=== PATIENT | male | born 1955 | race Caucasian/White ===

== ENCOUNTER 2021-01-17 15:33 | Inpatient (IN) | payer BC, SELFPAY ==
[2021-01-17] VITALS (7 sets, daily range): BP systolic 130–184; BP diastolic 88–122; PULSE 95–123; RESP 15–19; TEMP 36–36.9; O2SAT 95–100; BMI 26.8
--- NOTE | ~2021-01-17 | CT_ITS ---
EXAMINATION: CTA CHEST CT ABDOMEN AND PELVIS WITH CONTRAST CLINICAL INFORMATION: Dyspnea. Tachycardia. Elevated d-dimer. Abdominal ascites. COMPARISON: Chest x-ray 01/17/2021. CT abdomen pelvis 07/08/2011 TECHNIQUE: A noncontrast localizer was performed, followed by the administration of 63 mL Omnipaque [address] of the chest was then performed. Coronal and sagittal reformatted and 3-D technique MIP images of the chest were completed at the CT scanner and reviewed on the PACS workstation. No adverse effects were reported. Images were then performed through the abdomen and pelvis. Coronal and sagittal reformatted images performed at CT scanner by technologist. [This CT examination was performed using dose optimization techniques as appropriate, variously including the following: *Automated exposure control *Adjustment of mA and/or kV according to patient size (this includes techniques or standardized protocols for targeted exams where dose is matched to indication/reason for exam; i.e. extremities or head) *Use of iterative reconstruction technique] DLP: 459 mGy-cm. FINDINGS: CTA CHEST Vascular: The main pulmonary artery, secondary and tertiary branches of the pulmonary artery are normally opacified with no evidence of pulmonary embolism. The aorta and great vessels are unremarkable. There are calcifications of the wall of aorta. The heart size is normal. There is no pericardial effusion. Large volume of coronary artery calcifications. Mediastinum: No mediastinal mass. No significant lymphadenopathy. Lungs: The lungs are clear. No nodule or infiltrate. Central bronchial airways open. Fluid: Small bilateral pleural effusions layering dependently. Axilla: No significant lymphadenopathy. CT SCAN ABDOMEN/PELVIS: Liver, Gallbladder and Biliary Tree: The liver is normal in size, shape, and attenuation. No focal hepatic lesion or biliary ductal dilatation is present. The gallbladder is unremarkable with no evidence of radiopaque gallstones, gallbladder wall thickening, or obvious pericholecystic inflammatory changes. Pancreas: Unremarkable. Spleen: Unremarkable. Adrenal Glands: Unremarkable. Kidneys and Ureters: The kidneys are normal in size, shape, and attenuation. No hydronephrosis, hydroureter, or calculi seen. No perinephric stranding. Bladder: Unremarkable. Gastrointestinal Tract: The small and large bowel are unremarkable. The appendix is surgically absent. Mesentery: Small to moderate volume of abdominal ascites. No mesenteric mass or inflammation. No free air. Abdominal Wall: No significant hernia is appreciated. Lymph Nodes: Normal. Vascular: Atherosclerotic vascular calcifications of aorta and iliac arteries. No aneurysm. Pelvic Viscera: Partially imaged scrotal sac demonstrating large hydroceles. Prostate measures 3.5 cm transverse. Osseous Structures: Moderate degenerative spondylosis of the spine. CT/CT angio chest PE protocol IMPRESSION: 1. CT CHEST: No evidence of pulmonary embolism. Small bilateral pleural effusions. 2. CT SCAN ABDOMEN PELVIS: Small moderate volume of abdominal ascites.
--- NOTE | ~2021-01-17 | XR_ITS ---
EXAMINATION: XR CHEST CLINICAL INFORMATION: Dyspnea. COMPARISON: 07/10/2011 chest radiographs. TECHNIQUE: Frontal view of the chest was obtained. FINDINGS: The lungs are clear. The heart and mediastinal structures are unremarkable. XR/XR chest 1V IMPRESSION: No acute cardiopulmonary process.
--- NOTE | 2021-01-17 15:41 | ECG_ITS ---
Test Reason : ARRHYTHMIA Blood Pressure : / mmHG Vent. Rate : 130 BPM Atrial Rate : 130 BPM P-R Int : 156 ms QRS Dur : 102 ms QT Int : 276 ms P-R-T Axes : 067 003 082 degrees QTc Int : 406 ms Sinus tachycardia Possible Left atrial enlargement Septal infarct , age undetermined Abnormal ECG When compared with ECG of 08-JUL-2011 18:53, Septal infarct is now Present Non-specific change in ST segment in Inferior leads ST now depressed in Lateral leads Nonspecific T wave abnormality, worse in Inferior leads T wave inversion now evident in Lateral leads Referred By: Kathie Tiwari Electronically Signed By:Luiz Ruiz
[2021-01-17] MEDS: Aspirin 81 MG TAB.CHEW 324 MG PO (15:45)
--- NOTE | 2021-01-17 15:45 | ED_ITS ---
HPI - SOB/Dyspnea General Chief Complaint: Arrhythmia/Palpitations Stated Complaint: Abdnormal EKG/SOB/Chest tightness Time Seen by Provider: 01/17/21 15:41 Source: patient Mode of arrival: ambulatory (sent by PCP for abnormal EKG) Limitations: no limitations History of Present Illness MD elicited complaint: shortness of breath and chest pain Pertinent past history: other (HTN) Onset (ago): week(s) (2 weeks ago had chest pain that has resolved occurred while working, since then dyspnea and orthopnea) Context: occurred during exertion Timing: improved Severity: moderate Exacerbating factors: lying flat and exertion Relieving factors: rest Associated symptoms: chest pain (resolved occurred 2 weeks ago) Treatment prior to arrival: none Related Data Allergies Allergy/AdvReac Type Severity Reaction Status Date / Time No Known Allergies Allergy Verified 01/17/21 15:42 Review of Systems Review of Systems: Constitutional : No Fever, No Chills ENT/Mouth : No sore throat, No Rhinorrhea, No Swallowing Difficulty Eyes: No Eye Pain, No Swelling, No Redness Cardiovascular : No Chest Pain, positive SOB, pos Orthopnea, positive Edema Respiratory : No Cough, No Sputum, No Wheezing, positive dyspnea Gastrointestinal : No Nausea, No Vomiting, No Diarrhea, No abdominal Pain, No Hematochezia, No Melena Genitourinary : No Dysuria, No Urinary Frequency, No Hematuria Musculoskeletal : No joint pain, No Myalgias Skin : No Skin Lesions, No rash Neuro : No Weakness, No Numbness, No Dizziness, No Headache Psych : No Anxiety/Panic, No Depression Heme/Lymph: No Bruising, No Lymphadenopathy Endocrine : No Polyuria, No Polydipsia All other systems reviewed and are negative [facility] Past Medical History Attestation statement: The following information was validated with the patient. Medical History HTN (hypertension) Social History Social History (Updated 01/17/21 @ 15:49 by Kathie Tiwari DO) Patient Tobacco Use Status: Current everyday Tobacco user Use of substances other than those prescribed or required for medical reasons: No Physical Exam Vital Signs: Vital Signs: Last Vital Signs Temp 96.8 F 01/17/21 15:42 Pulse 121 H 01/17/21 15:42 Resp 19 01/17/21 15:42 BP 184/122 H 01/17/21 15:42 Pulse Ox 99 01/17/21 15:42 Body Mass Index 26.8 Appearance: Alert. Oriented X3. No acute distress. Anxious Eyes: Pupils equal, round and reactive to light. ENT: Pharynx normal. Neck: Normal inspection. Neck supple. CVS: tachycardic heart rate and rhythm. Pulses normal. Respiratory: No respiratory distress. Breath sounds bases decreased Abdomen: Soft and nontender. Skin: Skin warm and dry. Normal skin color. Normal skin turgor. Extremities: 1+ pitting lower extremity edema. No calf ttp Neuro: Oriented X 3. No motor deficit. No sensory deficit. Course Course Course Narrative: signed out to Dr. Hoff pending further workup MDM - SOB/Dyspnea MDM Narrative Medical decision making narrative: 65 yo male with recent episodes of SOLARES and 2 weeks ago had chest pain with labor at work, he has noted increased SOLARES and also new orthopnea, he has not had a prior cardiac workup in the past, he has been taking cough and cold medications to see if this improves his symptoms, sent by his PCP for EKG changes, suspect he had a cardiac event a couple of weeks ago and likely has some mild CHF - labs, troponin, nitro for BP, ASA, he has no CP at this time, ddimer given tachcyardia as well to r/o PE, dispo per results and findings. ECG Data Attestation: I personally reviewed and interpreted this ECG as follows: ECG interpretation date: 01/17/21 ECG interpretation time: 15:46 Interpretation: Rate: 130 Rhythm: sinus tachycardia Runge: left , LVH Normal P waves. Normal NATI. Normal QRS complex. ST T wave : no BILLY, ST depression in inf leads as well as V5-V6 qTC: normal prior studies: changed from prior The study has been interpreted contemporaneously by me. . Discharge Plan Discharge Clinical Impression: Acute dyspnea, Abnormal ECG
[2021-01-17] MEDS: Nitroglycerin 2 % Oint 1 GM Packet 1 INCH TRANSDERMA (15:49)
[2021-01-17 16:03] LABS: MANUAL DIFF FLAG NO
[2021-01-17 16:12] LABS: Basophils Absolute Auto 0.1 X10*3/uL (0.0-0.2); Basophils Percent Auto 0.6 % (0-2); Eosinophils Absolute Auto 0.1 X10*3/uL (0.0-0.4); Eosinophils Percent Auto 1.4 % (0-4); Hematocrit 48.8 % (42-52); Hemoglobin 16.3 g/dl (14.0-18.0); Imm Gran Abs Auto 0.02 X10*3/uL (0.00-0.03); Imm Gran Pct Auto 0.3 % (0.0-0.4); Lymphocytes Absolute Auto 1.7 X10*3/uL (1.2-4.9); Lymphocytes Percent Auto 21.4 % (20-40); Mean Corpuscular HGB Conc 33.4 g/dl (31.0-36.0); Mean Corpuscular Hemoglobin 31.4 pg (27.0-33.0); Mean Platelet Volume 9.3 fL (9.4-12.4); Monocytes Absolute Auto 0.7 X10*3/uL (0.1-1.2); Monocytes Percent Auto 9.2 % (2-11); Neutrophils Absolute Auto 5.3 X10*3/uL (2.0-8.3); Neutrophils Percent Auto 67.1 % (45-73); Platelet Count 322 X10*3/uL (160-400); Red Blood Count 5.19 X10*6/uL (4.60-5.80); Red Cell Distribution Width 13.6 % (11.0-16.0); White Blood Count 7.9 X10*3/uL (4.8-10.8)
[2021-01-17 16:15] LABS: INTERNATIONAL NORM RATIO 1.2 (0.9-1.1); Prothrombin Time 13.9 SEC (10.8-13.0)
[2021-01-17 16:18] LABS: D Dimer 531 NG/ML; Partial Thromboplastin Time 32.5 SEC (24.1-38.0)
[2021-01-17 16:32] LABS: COVID-19 Test Negative (Negative); IDNOW Serial# 08D9AD1C
[2021-01-17 16:38] LABS: Alanine Aminotransferase 68 U/L (0-40); Albumin Level 4.3 g/dL (3.5-5.0); Alkaline Phosphatase 118 U/L (39-117); Anion Gap 15 (12-20); Aspartate Amino Transferase 48 U/L (5-37); Bilirubin Direct 0.4 mg/dL (0.0-0.5); Bilirubin Total 0.9 mg/dL (0.0-1.0); Blood Urea Nitrogen 23 mg/dL (9-16); Calcium 9.5 mg/dL (8.4-10.2); Carbon Dioxide 21 mmol/L (22-29); Chloride 108 mmol/L (96-108); Creatinine Clr Calc Pharmacy 60.6; Estimated Glomerular Filt Rate > 60; Glucose Random 117 mg/dL (60-115); Lipase 17 U/L (8-78); Magnesium 2.1 mg/dL (1.6-2.6); Potassium 4.3 mmol/L (3.3-5.1); Sodium 140 mmol/L (135-145); Total Protein 6.6 g/dL (6.5-8.0)
[2021-01-17 16:39] LABS: B Type Natriuretic Peptide 1996 pg/mL (<100)
--- NOTE | 2021-01-17 16:47 | PHA.MEDREC ---
Pharmacy Consult ? Medication Reconciliation Pharmacy has completed the medication reconciliation. No remarkable issues to report. Patient reports having no prescription medication. Takes aspirin every once in a while and recently has been taking NyQuil to sleep because of congestion. Buffy Bernard, PharmD
[2021-01-17] MEDS: iohexoL 350 MG/ML 100 ML INFUS..BTL IV (17:04)
[2021-01-17] MEDS: Heparin Sodium,Porcine 5,000 UNIT/ML VIAL 4000 UNIT IVPUSH (17:10)
[2021-01-17] MEDS: Furosemide 40 MG/4 ML VIAL IVPUSH (17:55)
[2021-01-17] MEDS: Labetalol HCL 100 MG/20 ML VIAL 10 MG IVPUSH (17:56)
[2021-01-17 18:46] LABS: Troponin-I High Sensitivity 35.4 ng/L (<3.5-35.0)
--- NOTE | 2021-01-17 20:42 | P.HPHOSP_ITS ---
History of Present Illness Date of Service: 01/17/21 Chief Complaint: SOB 65-year-old female with a past medical history of hypertension-noncompliant with medications, tobacco dependence, presented to the hospital with a chief complaint of chest pain/shortness of breath/dyspnea on exertion; reportedly symptoms have been going on for the past 2 weeks. Which have been gradually worsening. Also complains of palpitations. Denies any lightheadedness. Denies any nausea vomiting or diaphoresis associated with the chest discomfort. Denies any fever chills cough. Denies any GI or symptoms. Review of all other systems is negative except mentioned above ER course: Per ER team patient noted to have ST changes on EKG showed ST depression in inferior leads and V5 V6 consistent with strain pattern, LVH; troponins x2 indeterminate; proBNP elevated; patient noted to be tachycardic, CT angio negative for any pulmonary embolism; discussed with Dr. Ruiz from Cardiology- who mentioned no heparin drip, Lasix for possible CHF; patient also received aspirin. Also noted mild transaminitis small moderate volume of ascites. [facility] Medical History HTN (hypertension) Social History (Updated 01/17/21 @ 15:49 by Kathie Tiwari DO) Household Members: Family Housing: House Alcohol intake: current Alcohol intake frequency: 0-2 drinks per day Patient Tobacco Use Status: Never used Tobacco Smoked in Last 30 Days: Yes Use of substances other than those prescribed or required for medical reasons: No Currently Displaying Signs/Symptoms of Drug Intoxication Withdrawal: No Have you been hit, kicked, punched, or otherwise hurt by someone within the past year? If so, by whom?: No Do you feel safe in your current relationship?: Yes Is there a partner from a previous relationship who is making you feel unsafe now?: No Are you made to feel afraid or neglected: No Advance Directives: Yes Advance Directives Information Provided: Yes Advance Directives on File: No Advance Directives Date on File: 01/17/21 Do you have thoughts of harming others: None Do you have a plan to hurt others: No Plan Recently lost weight without trying: Yes How much weight loss: 2-13 pounds Eating poorly because of decreased appetite: Yes Nutrition screen score: 4 Nutrition Risks: Poor intake 0-25% >4 days Meds Allergies Allergy/AdvReac Type Severity Reaction Status Date / Time No Known Allergies Allergy Verified 01/17/21 15:42 Active Medications: Current Medications Generic Name Dose Route Start Last Admin Trade Name Jin PRN Reason Stop Dose Admin Pharmacy Consult 1 each 01/17/21 15:41 Consult Rx Perform Med Rec MISCELLANE ONCE PRN Consult order Home Medications Medication Instructions Recorded Confirmed Last Taken Type acetaminophen 650 mg PO Q6H PRN 01/17/21 01/17/21 Unknown History aspirin 81 mg PO DAILY PRN 01/17/21 01/17/21 Unknown History [id number]-acetaminophen 30 ml PO Q4-6H PRN 01/17/21 01/17/21 01/17/21 03:00 History [NyQuil] Physical Exam Vital Signs and Narrative: Vital Signs: Last Vital Signs Temp 96.8 F 01/17/21 15:42 Pulse 104 H 01/17/21 20:00 Resp 18 01/17/21 20:00 BP 130/93 H 01/17/21 20:00 Pulse Ox 96 01/17/21 20:00 Body Mass Index 26.8 Gen: Appears be in no acute distress HEENT: NCAT, Moist mucosa. Pulmonary: Fine crackles at bases CVS: Normal S1-S2 Abdomen: BS+, Soft, Nontender; mildly distended Extremities: Warm well perfused; trace pedal edema Neuro: Alert and awake. Grossly nonfocal Results Labs CBC and Chem 7: 01/18/21 05:31 01/18/21 05:31 Labs: Laboratory Results - last 24 hr 01/17/21 01/17/21 01/17/21 15:54 15:54 15:54 MCV 94.0 MCH 31.4 MCHC 33.4 RDW 13.6 Plt Count 322 MPV 9.3 L Immature Gran % (Auto) 0.3 Neut % (Auto) 67.1 Lymph % (Auto) 21.4 [place] % (Auto) 9.2 Eos % (Auto) 1.4 Baso % (Auto) 0.6 Lymph # (Auto) 1.7 [place] # (Auto) 0.7 Eos # (Auto) 0.1 Baso # (Auto) 0.1 Abs Immat Gran (auto) 0.02 Absolute Neuts (auto) 5.3 Absolute Nucleated RBC 0.000 Nucleated RBC % (auto) 0.0 PT INR APTT D-Dimer Anion Gap 15 Estim Creat Clear Calc 60.6 Estimated GFR > 60 Random Glucose 117 H Calcium 9.5 Magnesium 2.1 Total Bilirubin 0.9 Direct Bilirubin 0.4 AST 48 H ALT 68 H Alkaline Phosphatase 118 H Troponin I High Sens 40.0 H* B-Natriuretic Peptide 1996 H Total Protein 6.6 Albumin 4.3 Lipase 17 COVID-19 ([facility]) COVID-19 Clin Com 01/17/21 01/17/21 01/17/21 15:54 15:54 17:55 MCV MCH MCHC RDW Plt Count MPV Immature Gran % (Auto) Neut % (Auto) Lymph % (Auto) [place] % (Auto) Eos % (Auto) Baso % (Auto) Lymph # (Auto) [place] # (Auto) Eos # (Auto) Baso # (Auto) Abs Immat Gran (auto) Absolute Neuts (auto) Absolute Nucleated RBC Nucleated RBC % (auto) PT 13.9 H INR 1.2 H APTT 32.5 D-Dimer 531 Anion Gap Estim Creat Clear Calc Estimated GFR Random Glucose Calcium Magnesium Total Bilirubin Direct Bilirubin AST ALT Alkaline Phosphatase Troponin I High Sens 35.4 H* B-Natriuretic Peptide Total Protein Albumin Lipase COVID-19 ([facility]) Negative COVID-19 Clin Com See Note Imaging Radiologist's Impressions: Impressions Chest X-Ray 01/17/21 15:41 IMPRESSION: No acute cardiopulmonary process. Chest CTA 01/17/21 16:23 IMPRESSION: 1. CT CHEST: No evidence of pulmonary embolism. Small bilateral pleural effusions. 2. CT SCAN ABDOMEN PELVIS: Small moderate volume of abdominal ascites. Abdomen/Pelvis CT 01/17/21 16:57 IMPRESSION: 1. CT CHEST: No evidence of pulmonary embolism. Small bilateral pleural effusions. 2. CT SCAN ABDOMEN PELVIS: Small moderate volume of abdominal ascites. Assessment and Plan (1) CHF (congestive heart failure): Qualifiers: Heart failure chronicity: acute Heart failure type: combined systolic and diastolic Qualified Code(s): I50.41 - Acute combined systolic (congestive) and diastolic (congestive) heart failure Status: Acute 65-year-old female with a past medical history of hypertension- noncompliant with medications; tobacco dependence presented to the hospital with a chief complaint nausea vomiting and chest discomfort; noted to have ST depressions in lateral leads and inferior leads, LVH; ended in a troponins; elevated proBNP; likely acute CHF. Admitted for further management. Shortness of breath/dyspnea on exertion: Patient noted to have new onset CHF. Patient was given nitro patch and Lasix IV in the ER. Improving symptomatically Echocardiogram. I's and O's and daily weights Lasix 40 mg IV daily Fatigue: Likely from CHF. Patient does report tick bites. Will obtain Lyme panel. Indeterminate troponins: Likely demand ischemia. Cardiology made aware. Recommended no heparin drip for now. Continue aspirin. Will obtain TSH, hemoglobin A1c, lipid profile Hypertensive urgency: Patient received labetalol in the ER. Will give the patient on metoprolol succinate. Transaminitis: Likely congestive hepatopathy. Will also obtain acute hepatitis panel. CT abdomen showed No acute abnormality of the liver or gallbladder. Ascites: Likely from CHF. non tender; will defer to AM team for diagnostic paracentesis if needed. DVT prophylaxis: Lovenox Code status: Full code Quality Stroke Does the patient have a stroke diagnosis?: No VTE Prior VTE?: No VTE Risk Level:: Medical - moderate - high VTE Device Contraindication: N/A - Device Ordered VTE Drug Contraindication: N/A - Med Ordered
[2021-01-17] MEDS: Enoxaparin Sodium 40 MG/0.4 ML SYRINGE SUBCUT (22:59)
[2021-01-18] VITALS (8 sets, daily range): BP systolic 110–135; BP diastolic 59–82; PULSE 92–100; RESP 15–18; TEMP 36.3–36.9; O2SAT 96–99; BMI 23.8
--- NOTE | 2021-01-18 | ECG_ITS ---
Test Reason : CP Blood Pressure : / mmHG Vent. Rate : 102 BPM Atrial Rate : 102 BPM P-R Int : 180 ms QRS Dur : 104 ms QT Int : 370 ms P-R-T Axes : 061 017 265 degrees QTc Int : 482 ms Sinus tachycardia Possible Left atrial enlargement Septal infarct , age undetermined T wave abnormality, consider inferior ischemia Abnormal ECG When compared to the previous EKG of ST less depressed in lateral leads Referred By: Maria Ines Allen Electronically Signed By:JORDI MANRIQUE MD
[2021-01-18] MEDS: 0.9 % Sodium Chloride Flush 3 ML SYRINGE IVFLUSH ×4 (00:05→20:05)
[2021-01-18 05:59] LABS: MANUAL DIFF FLAG NO
[2021-01-18 06:13] LABS: Basophils Percent Auto 0.4 % (0-2); Eosinophils Absolute Auto 0.1 X10*3/uL (0.0-0.4); Eosinophils Percent Auto 1.3 % (0-4); Hematocrit 40.3 % (42-52); Hemoglobin 13.7 g/dl (14.0-18.0); Imm Gran Abs Auto 0.01 X10*3/uL (0.00-0.03); Imm Gran Pct Auto 0.1 % (0.0-0.4); Lymphocytes Absolute Auto 1.8 X10*3/uL (1.2-4.9); Lymphocytes Percent Auto 25.3 % (20-40); Mean Corpuscular Hemoglobin 31.1 pg (27.0-33.0); Mean Corpuscular Volume 91.4 fL (80-98); Mean Platelet Volume 9.3 fL (9.4-12.4); Monocytes Absolute Auto 0.7 X10*3/uL (0.1-1.2); Monocytes Percent Auto 9.9 % (2-11); Neutrophils Absolute Auto 4.5 X10*3/uL (2.0-8.3); Platelet Count 257 X10*3/uL (160-400); Red Blood Count 4.41 X10*6/uL (4.60-5.80); Red Cell Distribution Width 13.2 % (11.0-16.0); White Blood Count 7.1 X10*3/uL (4.8-10.8)
[2021-01-18 06:37] LABS: Alanine Aminotransferase 48 U/L (0-40); Albumin Level 3.4 g/dL (3.5-5.0); Alkaline Phosphatase 88 U/L (39-117); Aspartate Amino Transferase 29 U/L (5-37); Bilirubin Direct 0.5 mg/dL (0.0-0.5); Bilirubin Total 1.1 mg/dL (0.0-1.0); Magnesium 1.9 mg/dL (1.6-2.6)
[2021-01-18 06:38] LABS: Anion Gap 11 (12-20); Blood Urea Nitrogen 20 mg/dL (9-16); Calcium 8.9 mg/dL (8.4-10.2); Carbon Dioxide 24 mmol/L (22-29); Chloride 110 mmol/L (96-108); Cholesterol 146 mg/dL; Creatinine Clr Calc Pharmacy 65.3; Estimated Glomerular Filt Rate > 60; Glucose Random 82 mg/dL (60-115); HDL Cholesterol 35 mg/dL; LDL Cholesterol Calculated 95 mg/dl; Sodium 141 mmol/L (135-145); Triglycerides 81 mg/dL
[2021-01-18 06:40] LABS: Troponin-I High Sensitivity 52.3 ng/L (<3.5-35.0)
[2021-01-18] MEDS: Metoprolol Succinate ER 25 MG TAB.ER.24H PO (08:10)
[2021-01-18] MEDS: Furosemide 40 MG/4 ML VIAL IVPUSH (08:11)
[2021-01-18] MEDS: Acetaminophen 325 MG TABLET 650 MG PO (08:21)
--- NOTE | 2021-01-18 10:20 | P.CONCA_ITS ---
History of Present Illness History of Present Illness Date of Service: 01/18/21 Chief complaint: New CHF Narrative: Pleasant 65-year-old gentleman who is presenting for shortness of breath ongoing for couple of weeks with recent worsening. He was also complaining of orthopnea and PND. He has been experiencing some chest discomfort for the last year. He gets it when he goes to work and relates it is to stress. He said at work when he is walking or lifting think he does not get any chest discomfort. In the last week he has been experiencing more shortness of breath and was difficult for him to work due to shortness of breath. He also complained of some orthopnea and PND and he had to sleep sitting up. Denies any chest tightness or chest pain right now. He has known history of hypertension but was not taking any medication for the last 2 years. He drinks 4 beers every day. He was significantly hypertensive on admission. His blood pressure is better controlled right now. ECG reviewed showing sinus rhythm, normal axis, inferior T-wave inversions, lateral T-wave inversions, cannot rule out septal infarct, QTC of 482 milliseconds. [facility] Past Medical History Medical History HTN (hypertension) Social History Social History (Updated 01/17/21 @ 15:49 by Kathie Tiwari DO) Household Members: Family Housing: House Alcohol intake: current Alcohol intake frequency: 0-2 drinks per day Patient Tobacco Use Status: Never used Tobacco Smoked in Last 30 Days: Yes Use of substances other than those prescribed or required for medical reasons: No Currently Displaying Signs/Symptoms of Drug Intoxication Withdrawal: No Have you been hit, kicked, punched, or otherwise hurt by someone within the past year? If so, by whom?: No Do you feel safe in your current relationship?: Yes Is there a partner from a previous relationship who is making you feel unsafe now?: No Are you made to feel afraid or neglected: No Advance Directives: Yes Advance Directives Information Provided: Yes Advance Directives on File: No Advance Directives Date on File: 01/17/21 Do you have thoughts of harming others: None Do you have a plan to hurt others: No Plan Recently lost weight without trying: Yes How much weight loss: 2-13 pounds Eating poorly because of decreased appetite: Yes Nutrition screen score: 4 Nutrition Risks: Poor intake 0-25% >4 days Meds Allergies Allergy/AdvReac Type Severity Reaction Status Date / Time No Known Allergies Allergy Verified 01/17/21 15:42 Active Medications: Current Medications Generic Name Dose Route Start Last Admin Trade Name Freq PRN Reason Stop Dose Admin Acetaminophen 650 mg 01/17/21 20:54 01/18/21 08:21 Acetaminophen 325 Mg Tablet PO 650 mg Q6H PRN Administration Pain, Mild (Pain Scale 1-3) Aspirin 81 mg 01/17/21 20:57 Aspirin 81 Mg Tab.Chew PO DAILY PRN Pain Enoxaparin Sodium 40 mg 01/17/21 21:00 01/17/21 22:59 Enoxaparin Sodium 40 Mg/0.4 Ml Syringe SUBCUT 40 mg Q24H JUDE Administration Furosemide 40 mg 01/18/21 09:00 01/18/21 08:11 Furosemide 40 Mg/4 Ml Vial IVPUSH 40 mg DAILY JUDE Administration Protocol Magnesium Hydroxide 30 ml 01/17/21 20:54 Milk Of Magnesia 30 Ml Oral.Susp PO DAILY PRN Constipation Melatonin 6 mg 01/17/21 20:54 Melatonin 3 Mg Tablet PO BEDTIME PRN Insomnia Metoprolol Succinate 25 mg 01/18/21 09:00 01/18/21 08:10 Metoprolol Succinate Er 25 Mg Tab.Er.24h PO 25 mg DAILY JUDE Administration Protocol Morphine Sulfate 1 mg 01/17/21 20:54 Morphine Sulfate 2 Mg/Ml Cartridge IVPUSH Q4H PRN Shortness of Breath/Wheezing Naloxone HCl 0.2 mg 01/17/21 20:54 Naloxone Hcl 0.4 Mg/Ml Vial IVPUSH Q2M PRN Excessive sedation or RR < 8 Nitroglycerin 0.4 mg 01/17/21 20:54 Nitroglycerin 0.4 Mg Tab.Subl SUBLINGUAL Q5M PRN Chest Pain Pharmacy Consult 1 each 01/17/21 15:41 Consult Rx Perform Med Rec MISCELLANE ONCE PRN Consult order Senna 17.2 mg 01/17/21 20:54 Sennosides 8.6 Mg Tablet PO BEDTIME PRN Constipation Sodium Chloride 3 ml 01/18/21 00:00 01/18/21 08:11 0.9 % Sodium Chloride Flush 3 Ml Syringe IVFLUSH 3 ml QSHIFT JUDE Administration Home Medications Medication Instructions Recorded Confirmed Last Taken Type acetaminophen 650 mg PO Q6H PRN 01/17/21 01/17/21 Unknown History aspirin 81 mg PO DAILY PRN 01/17/21 01/17/21 Unknown History [id number]-acetaminophen 30 ml PO Q4-6H PRN 01/17/21 01/17/21 01/17/21 03:00 History [NyQuil] Physical Exam Vital Signs: Vital Signs: Last Vital Signs Temp 97.4 F 01/18/21 08:00 Pulse 100 01/18/21 08:10 Resp 16 01/18/21 08:00 BP 135/82 01/18/21 08:10 Pulse Ox 98 01/18/21 08:00 Body Mass Index 23.8 GENERAL APPEARANCE: in no acute distress, pleasant. NECK: no carotid bruit, no jugular venous distention. SKIN: no suspicious lesions, warm and dry. HEART: Apical holosystolic murmur radiating to axilla, regular rate and rhythm. LUNGS: clear to auscultation bilaterally. ABDOMEN: soft, nontender. EXTREMITIES: no edema. PERIPHERAL PULSES: equal. NEUROLOGIC: No gross deficits, AAO X 3 Results Labs and Meds Result diagrams: 01/18/21 05:31 01/18/21 05:31 Lab results: Laboratory Results - last 24 hr 01/17/21 01/17/21 01/17/21 15:54 15:54 15:54 WBC 7.9 RBC 5.19 Hgb 16.3 Hct 48.8 MCV 94.0 MCH 31.4 MCHC 33.4 RDW 13.6 Plt Count 322 MPV 9.3 L Immature Gran % (Auto) 0.3 Neut % (Auto) 67.1 Lymph % (Auto) 21.4 [place] % (Auto) 9.2 Eos % (Auto) 1.4 Baso % (Auto) 0.6 Lymph # (Auto) 1.7 [place] # (Auto) 0.7 Eos # (Auto) 0.1 Baso # (Auto) 0.1 Abs Immat Gran (auto) 0.02 Absolute Neuts (auto) 5.3 Absolute Nucleated RBC 0.000 Nucleated RBC % (auto) 0.0 PT INR APTT D-Dimer Sodium 140 Potassium 4.3 Chloride 108 Carbon Dioxide 21 L Anion Gap 15 BUN 23 H Creatinine 1.11 Estim Creat Clear Calc 60.6 Estimated GFR > 60 Random Glucose 117 H Calcium 9.5 Magnesium 2.1 Total Bilirubin 0.9 Direct Bilirubin 0.4 AST 48 H ALT 68 H Alkaline Phosphatase 118 H Troponin I High Sens 40.0 H* B-Natriuretic Peptide 1996 H Total Protein 6.6 Albumin 4.3 Triglycerides Cholesterol LDL Cholesterol, Calc HDL Cholesterol Lipase 17 COVID-19 (MIKE) COVID-19 [facility] Com 01/17/21 01/17/21 01/17/21 15:54 15:54 17:55 WBC RBC Hgb Hct MCV MCH MCHC RDW Plt Count MPV Immature Gran % (Auto) Neut % (Auto) Lymph % (Auto) [place] % (Auto) Eos % (Auto) Baso % (Auto) Lymph # (Auto) [place] # (Auto) Eos # (Auto) Baso # (Auto) Abs Immat Gran (auto) Absolute Neuts (auto) Absolute Nucleated RBC Nucleated RBC % (auto) PT 13.9 H INR 1.2 H APTT 32.5 D-Dimer 531 Sodium Potassium Chloride Carbon Dioxide Anion Gap BUN Creatinine Estim Creat Clear Calc Estimated GFR Random Glucose Calcium Magnesium Total Bilirubin Direct Bilirubin AST ALT Alkaline Phosphatase Troponin I High Sens 35.4 H* B-Natriuretic Peptide Total Protein Albumin Triglycerides Cholesterol LDL Cholesterol, Calc HDL Cholesterol Lipase COVID-19 (MIKE) Negative COVID-19 [facility] Com See Note 01/18/21 01/18/21 01/18/21 05:31 05:31 05:31 WBC 7.1 RBC 4.41 L Hgb 13.7 L Hct 40.3 L MCV 91.4 MCH 31.1 MCHC 34.0 RDW 13.2 Plt Count 257 MPV 9.3 L Immature Gran % (Auto) 0.1 Neut % (Auto) 63.0 Lymph % (Auto) 25.3 [place] % (Auto) 9.9 Eos % (Auto) 1.3 Baso % (Auto) 0.4 Lymph # (Auto) 1.8 [place] # (Auto) 0.7 Eos # (Auto) 0.1 Baso # (Auto) 0.0 Abs Immat Gran (auto) 0.01 Absolute Neuts (auto) 4.5 Absolute Nucleated RBC 0.000 Nucleated RBC % (auto) 0.0 PT INR APTT D-Dimer Sodium 141 Potassium 4.0 Chloride 110 H Carbon Dioxide 24 Anion Gap 11 L BUN 20 H Creatinine 1.03 Estim Creat Clear Calc 65.3 Estimated GFR > 60 Random Glucose 82 Calcium 8.9 D Magnesium Total Bilirubin 1.1 H Direct Bilirubin 0.5 AST 29 ALT 48 H Alkaline Phosphatase 88 D Troponin I High Sens B-Natriuretic Peptide Total Protein 5.0 L D Albumin 3.4 L D Triglycerides 81 Cholesterol 146 LDL Cholesterol, Calc 95 HDL Cholesterol 35 Lipase COVID-19 (MIKE) COVID-19 Clin Com 01/18/21 01/18/21 05:31 05:31 WBC RBC Hgb Hct MCV MCH MCHC RDW Plt Count MPV Immature Gran % (Auto) Neut % (Auto) Lymph % (Auto) [place] % (Auto) Eos % (Auto) Baso % (Auto) Lymph # (Auto) [place] # (Auto) Eos # (Auto) Baso # (Auto) Abs Immat Gran (auto) Absolute Neuts (auto) Absolute Nucleated RBC Nucleated RBC % (auto) PT INR APTT D-Dimer Sodium Potassium Chloride Carbon Dioxide Anion Gap BUN Creatinine Estim Creat Clear Calc Estimated GFR Random Glucose Calcium Magnesium 1.9 Total Bilirubin Direct Bilirubin AST ALT Alkaline Phosphatase Troponin I High Sens 52.3 H* B-Natriuretic Peptide Total Protein Albumin Triglycerides Cholesterol LDL Cholesterol, Calc HDL Cholesterol Lipase COVID-19 (MIKE) COVID-19 Clin Com Imaging Radiologist's impression: Impressions Chest X-Ray 01/17/21 15:41 IMPRESSION: No acute cardiopulmonary process. Chest CTA 01/17/21 16:23 IMPRESSION: 1. CT CHEST: No evidence of pulmonary embolism. Small bilateral pleural effusions. 2. CT SCAN ABDOMEN PELVIS: Small moderate volume of abdominal ascites. Abdomen/Pelvis CT 01/17/21 16:57 IMPRESSION: 1. CT CHEST: No evidence of pulmonary embolism. Small bilateral pleural effusions. 2. CT SCAN ABDOMEN PELVIS: Small moderate volume of abdominal ascites. Assessment and Plan (1) Non-STEMI (non-ST elevated myocardial infarction): Status: Acute (2) CHF (congestive heart failure): Qualifiers: Heart failure chronicity: acute Heart failure type: combined systolic a nd diastolic Qualified Code(s): I50.41 - Acute combined systolic (congestive) and diastolic (congestive) heart failure Status: Acute 65-year-old gentleman presenting for shortness of breath. Clinical story is more consistent with congestive heart failure. He has known history of hypertension and was noncompliant with medications for long time. He also drinks approximately 4 beers a day. EKGs showing changes of inferior lateral ischemia but these changes can be from left ventricular hypertrophy also. Seems fairly euvolemic right now. I think the Lasix can be changed to oral Lasix tomorrow. Will check echocardiogram today to assess for wall motion and valvular function. He has mitral regurgitation murmur on exam. Depending on his echocardiography I will decide about ischemic evaluation. If echo shows that his LVEF is down then I think we should transfer him to [facility] and do a diagnostic angiogram. On the other hand if his echo is completely normal then I will consider stress testing on Wednesday. Continue with baby aspirin for now. His cardiac enzymes are not fitting into ACS and I think are likely due to elevated blood pressure and a type 2 event. He was fairly tachycardic on admission. He was started on metoprolol 25 mg once a day. Please do not titrate beta-frank till echocardiography is done because if he has cardiomyopathy then the tachycardia is likely compensatory. Thank you for allowing me to participate in the care of your patient. Please feel free to contact me if you have any questions. Procedures Date of Service Date of Service: 01/18/21
--- NOTE | 2021-01-18 12:00 | CA_ITS ---
Transthoracic Echocardiogram Patient (Last, First, Middle): Mathew Birch A Gender: Male Date of : 1955 Age: 65 Procedure Date: 01/18/2021 Procedure Type: Transthoracic Echocardiogram Location[place] [facility] [place] Height: 167.64 cm Weight: 66.68 kg BSA: 1.75 m2 Heart Rate: bpm BP: 130 / 93 mmHg Color Stripper: Referring MD: Liu Kenney MD Symptoms: chf Study Quality: Good ECG Rhythm: Sinus Conclusions: - Severely reduced LVEF. Global hypokinesis. - JENNIFER 0.81. Low flow gradient . SVI 23. - There is mild dilatation of the ascending aorta. - There is moderate mitral valve regurgitation. - There is moderate tricuspid valve regurgitation. Findings Left Ventricle Normal left ventricular cavity size. There is mildly increased left ventricular wall thickness. The left ventricular systolic function is severely decreased. The visually estimated ejection fraction is between 20 25%. There is severe global hypokinesis. Abnormal diastolic function is noted. Elevated filling pressures. Right Ventricle Mildly increased right ventricular cavity size. There is normal right ventricular systolic function. Atria The left atrium is moderately dilated. Aortic Valve There is severe calcification of the aortic valve. There is severe thickening of the aortic valve. There is severe aortic valve stenosis. The peak aortic velocity is 3.05 m/s. The aortic valve area is 0.81 cm2. There is no aortic valve regurgitation. Mitral Valve There is mild mitral annular calcification. There is moderate mitral valve regurgitation. There is no mitral valve stenosis. Pulmonic Valve The pulmonic valve is likely normal. Tricuspid Valve Normal tricuspid valve structure and function. There is moderate tricuspid valve regurgitation. Normal right atrial pressure. Severe pulmonary hypertension is present. Great Vessels There is mild dilatation of the ascending aorta. The visualized portions of the pulmonary artery and branches are normal. Venous The inferior vena cava is normal in size and collapses greater than 50% with inspiration. Pericardium/Pleural There is no evidence of pericardial effusion. Prior Study Comparison No prior study available for comparison. Measurements 2D Linear Measurements IVSd: 1.14 0.6-0.9/0.6-1.0 cm LVIDd: 5.29 3.9-5.3/4.2-5.9 cm LVIDd Index: 3.02 2.4-3.2/2.2-3.1 cm/m2 LVIDs: 4.52 2.0-3.6 cm LVPWd: 1.02 0.7-1.1 cm Ao Root: 3.10 2.1-3.5 cm LA Diam: 4.30 2.7-3.8/3.0-4.0 cm LAIDs Index: 2.46 1.5-2.3 cm/m2 LV Mass: 276.08 67-162/88-224 g LV Mass Index: 157.76 43-95/49-115 g/m2 LVOT Diam: 2.00 3.0+(-)1.3 cm 2D Systolic Function EF 4C: 24.70 >55% EF 2C: 15.10 >55% EF BiP: 18.10 >55% Mitral Valve MV Pk E: 0.98 MV Decel Time: 123.00 E'Lateral: 5.87 E'Medial: 3.15 E/E' Med: 31.10 E/E' Lat: 16.70 PHT: 36.00 MVA PHT: 6.11 Decel [place]: 8.01 Aortic Valve AoV Pk Ramin: 3.05 AoV Mn Ramin: 2.13 AoV VTI: 0.50 AoV Pk Grad: 36.00 Aov Mn Grad: 21.00 JENNIFER Cont.VTI: 0.81 LVOT LVOT Pk Ramin: 0.60 LVOT Mn Ramin: 0.39 LVOT VTI: 0.13 LVOT Pk Grad: 1.00 LVOT Mn Grad: 1.00 LVOT Diam: 2.00 LVOT Area: 3.14 Diastolic Function MV Pk E: 0.98 E'Medial: 3.15 E/E' Med: 31.10 E' Laterial: 5.87 E/E' Lat: 16.70 Tricuspid Valve TR Pk Ramin: 3.64 TR Pk Grad: 53.00 RA Press: 8.00 RVSP: 61.00 Great Vessels Aorta Ao Root-2D: 3.10 2.0-3.7 cm Ao Asc: 3.40 2.1-3.4 cm Pulmonary Valve PV Pk Ramin: 0.77 Peak PV Grad: 2.00 Updated in Other Vendor System with Status of Final Luiz Ruiz MD electronically signed on 01/18/2021 3:50:13 PM with status of Final
--- NOTE | 2021-01-18 14:25 | HO.PM.IMPN ---
Subjective Subjective Date of Service: 01/18/21 Interval History: patient feeling significantly better since admission, has been having chest tightness with bilateral hand numbness lasting 10 minutes to an hour , also complain of heartburn acidity symptoms going on for roughly 3 months, feels symptoms are stress related mostly occur at night when he goes to work, later developed shortness of breath worse with exertion. ROS [employer] no headache no dizziness CVS no chest pain, shortness of breath improved GI no nausea no vomiting no diarrhea no urinary symptoms of urgency or frequent Physical Exam Vital Signs: Vital Signs: Last Vital Signs Temp 98.2 F 01/18/21 11:25 Pulse 92 01/18/21 11:25 Resp 16 01/18/21 08:00 BP 110/59 L 01/18/21 11:25 Pulse Ox 98 01/18/21 11:25 Body Mass Index 23.8 General resting comfortably in no acute distress. Neck is supple no JVD. CVS regular rate rhythm, Respiratory lungs clear to auscultation, no respiratory distress, no wheeze, no rales. Gastrointestinal abdomen soft, nontender, bowel sounds audible, no no guarding , no rigidity. Extremities no edema. Neuro nonfocal patient moving all 4 extremity. Skin no rash Objective Data Current Medications Generic Name Dose Route Start Last Admin Trade Name Freq PRN Reason Stop Dose Admin Acetaminophen 650 mg 01/17/21 20:54 01/18/21 08:21 Acetaminophen 325 Mg Tablet PO 650 mg Q6H PRN Administration Pain, Mild (Pain Scale 1-3) Aspirin 81 mg 01/17/21 20:57 Aspirin 81 Mg Tab.Chew PO DAILY PRN Pain Enoxaparin Sodium 40 mg 01/17/21 21:00 01/17/21 22:59 Enoxaparin Sodium 40 Mg/0.4 Ml Syringe SUBCUT 40 mg Q24H JUDE Administration Furosemide 40 mg 01/18/21 09:00 01/18/21 08:11 Furosemide 40 Mg/4 Ml Vial IVPUSH 40 mg DAILY JUDE Administration Protocol Magnesium Hydroxide 30 ml 01/17/21 20:54 Milk Of Magnesia 30 Ml Oral.Susp PO DAILY PRN Constipation Melatonin 6 mg 01/17/21 20:54 Melatonin 3 Mg Tablet PO BEDTIME PRN Insomnia Metoprolol Succinate 25 mg 01/18/21 09:00 01/18/21 08:10 Metoprolol Succinate Er 25 Mg Tab.Er.24h PO 25 mg DAILY JUDE Administration Protocol Morphine Sulfate 1 mg 01/17/21 20:54 Morphine Sulfate 2 Mg/Ml Cartridge IVPUSH Q4H PRN Shortness of Breath/Wheezing Naloxone HCl 0.2 mg 01/17/21 20:54 Naloxone Hcl 0.4 Mg/Ml Vial IVPUSH Q2M PRN Excessive sedation or RR < 8 Nitroglycerin 0.4 mg 01/17/21 20:54 Nitroglycerin 0.4 Mg Tab.Subl SUBLINGUAL Q5M PRN Chest Pain Pharmacy Consult 1 each 01/17/21 15:41 Consult Rx Perform Med Rec MISCELLANE ONCE PRN Consult order Senna 17.2 mg 01/17/21 20:54 Sennosides 8.6 Mg Tablet PO BEDTIME PRN Constipation Sodium Chloride 3 ml 01/18/21 00:00 01/18/21 08:11 0.9 % Sodium Chloride Flush 3 Ml Syringe IVFLUSH 3 ml QSHIFT [facility] Administration Labs CBC & Chem 7: 01/18/21 05:31 01/18/21 05:31 Labs: Laboratory Results - last 24 hr 01/17/21 01/17/21 01/17/21 15:54 15:54 15:54 WBC 7.9 RBC 5.19 Hgb 16.3 Hct 48.8 MCV 94.0 MCH 31.4 MCHC 33.4 RDW 13.6 Plt Count 322 MPV 9.3 L Immature Gran % (Auto) 0.3 Neut % (Auto) 67.1 Lymph % (Auto) 21.4 [place] % (Auto) 9.2 Eos % (Auto) 1.4 Baso % (Auto) 0.6 Lymph # (Auto) 1.7 [place] # (Auto) 0.7 Eos # (Auto) 0.1 Baso # (Auto) 0.1 Abs Immat Gran (auto) 0.02 Absolute Neuts (auto) 5.3 Absolute Nucleated RBC 0.000 Nucleated RBC % (auto) 0.0 PT INR APTT D-Dimer Sodium 140 Potassium 4.3 Chloride 108 Carbon Dioxide 21 L Anion Gap 15 BUN 23 H Creatinine 1.11 Estim Creat Clear Calc 60.6 Estimated GFR > 60 Random Glucose 117 H Calcium 9.5 Magnesium 2.1 Total Bilirubin 0.9 Direct Bilirubin 0.4 AST 48 H ALT 68 H Alkaline Phosphatase 118 H Troponin I High Sens 40.0 H* B-Natriuretic Peptide 1996 H Total Protein 6.6 Albumin 4.3 Triglycerides Cholesterol LDL Cholesterol, Calc HDL Cholesterol Lipase 17 COVID-19 (MIKE) COVID-19 Clin Com 01/17/21 01/17/21 01/17/21 15:54 15:54 17:55 WBC RBC Hgb Hct MCV MCH MCHC RDW Plt Count MPV Immature Gran % (Auto) Neut % (Auto) Lymph % (Auto) [place] % (Auto) Eos % (Auto) Baso % (Auto) Lymph # (Auto) [place] # (Auto) Eos # (Auto) Baso # (Auto) Abs Immat Gran (auto) Absolute Neuts (auto) Absolute Nucleated RBC Nucleated RBC % (auto) PT 13.9 H INR 1.2 H APTT 32.5 D-Dimer 531 Sodium Potassium Chloride Carbon Dioxide Anion Gap BUN Creatinine Estim Creat Clear Calc Estimated GFR Random Glucose Calcium Magnesium Total Bilirubin Direct Bilirubin AST ALT Alkaline Phosphatase Troponin I High Sens 35.4 H* B-Natriuretic Peptide Total Protein Albumin Triglycerides Cholesterol LDL Cholesterol, Calc HDL Cholesterol Lipase COVID-19 (MIKE) Negative COVID-19 Clin Com See Note 01/18/21 01/18/21 01/18/21 05:31 05:31 05:31 WBC 7.1 RBC 4.41 L Hgb 13.7 L Hct 40.3 L MCV 91.4 MCH 31.1 MCHC 34.0 RDW 13.2 Plt Count 257 MPV 9.3 L Immature Gran % (Auto) 0.1 Neut % (Auto) 63.0 Lymph % (Auto) 25.3 [place] % (Auto) 9.9 Eos % (Auto) 1.3 Baso % (Auto) 0.4 Lymph # (Auto) 1.8 [place] # (Auto) 0.7 Eos # (Auto) 0.1 Baso # (Auto) 0.0 Abs Immat Gran (auto) 0.01 Absolute Neuts (auto) 4.5 Absolute Nucleated RBC 0.000 Nucleated RBC % (auto) 0.0 PT INR APTT D-Dimer Sodium 141 Potassium 4.0 Chloride 110 H Carbon Dioxide 24 Anion Gap 11 L BUN 20 H Creatinine 1.03 Estim Creat Clear Calc 65.3 Estimated GFR > 60 Random Glucose 82 Calcium 8.9 D Magnesium Total Bilirubin 1.1 H Direct Bilirubin 0.5 AST 29 ALT 48 H Alkaline Phosphatase 88 D Troponin I High Sens B-Natriuretic Peptide Total Protein 5.0 L D Albumin 3.4 L D Triglycerides 81 Cholesterol 146 LDL Cholesterol, Calc 95 HDL Cholesterol 35 Lipase COVID-19 (MIKE) COVID-19 Clin Com 01/18/21 01/18/21 05:31 05:31 WBC RBC Hgb Hct MCV MCH MCHC RDW Plt Count MPV Immature Gran % (Auto) Neut % (Auto) Lymph % (Auto) [place] % (Auto) Eos % (Auto) Baso % (Auto) Lymph # (Auto) [place] # (Auto) Eos # (Auto) Baso # (Auto) Abs Immat Gran (auto) Absolute Neuts (auto) Absolute Nucleated RBC Nucleated RBC % (auto) PT INR APTT D-Dimer Sodium Potassium Chloride Carbon Dioxide Anion Gap BUN Creatinine Estim Creat Clear Calc Estimated GFR Random Glucose Calcium Magnesium 1.9 Total Bilirubin Direct Bilirubin AST ALT Alkaline Phosphatase Troponin I High Sens 52.3 H* B-Natriuretic Peptide Total Protein Albumin Triglycerides Cholesterol LDL Cholesterol, Calc HDL Cholesterol Lipase COVID-19 (MIKE) COVID-19 Clin Com Quality Stroke Does the patient have a stroke diagnosis?: No VTE Prior VTE?: No VTE Risk Level:: Medical - moderate - high VTE Device Contraindication: Treatment Not Indicated VTE Drug Contraindication: N/A - Med Ordered Assessment and Plan (1) CHF (congestive heart failure): Status: Acute Assessment and Plan: 65-year-old gentleman with past medical history of hypertension currently not on medication,presented with symptoms of chest pain of several months duration recently developed shortness of breath worse with exertion with elevated BNP diagnosed to have acute congestive heart failure acute congestive heart failure no prior history of Chf, patient feeling better, diuresed almost 3 L, at present appears euvolemic will switch to by mouth Lasix follow echocardiogram, case discussed with Cardiology if echo shows low EF patient will be transferred to [facility] for cardiac catheterization otherwise will undergo stress test to rule out ischemic heart disease EKG showed inferior lateral ischemic changes,trop elevated but flat, question related to uncontrolled hypertension,follow I's and O's, daily weight, repeat BMP and BNP at a.m. Hypertension noted to have elevated blood pressure on admit, started on low-dose beta-blockers blood pressure has improved. DVT prophylaxis on Lovenox
[2021-01-18] MEDS: Losartan Potassium 25 MG TABLET PO (16:56)
[2021-01-18] MEDS: Enoxaparin Sodium 40 MG/0.4 ML SYRINGE SUBCUT (20:05)
[2021-01-19 02:12] VITALS: BP 116/69; PULSE 87; RESP 18; TEMP 36.3; O2SAT 98
[2021-01-19 04:38] VITALS: BMI 23.6
[2021-01-19 07:00] LABS: B Type Natriuretic Peptide 1569 pg/mL (<100)
[2021-01-19 07:06] LABS: Anion Gap 10 (12-20); Blood Urea Nitrogen 21 mg/dL (9-16); Calcium 8.9 mg/dL (8.4-10.2); Carbon Dioxide 29 mmol/L (22-29); Chloride 107 mmol/L (96-108); Creatinine Clr Calc Pharmacy 67.3; Estimated Glomerular Filt Rate > 60; Glucose Random 87 mg/dL (60-115); Sodium 142 mmol/L (135-145)
[2021-01-19 07:44] VITALS: BP 120/80; PULSE 93; RESP 18; TEMP 36.4; O2SAT 98
[2021-01-19] MEDS: Furosemide 40 MG TABLET PO (07:55)
[2021-01-19] MEDS: Aspirin 81 MG TAB.CHEW PO (07:55)
[2021-01-19] MEDS: Milk of Magnesia 30 ML ORAL.SUSP PO (07:55)
[2021-01-19] MEDS: 0.9 % Sodium Chloride Flush 3 ML SYRINGE IVFLUSH (07:56)
[2021-01-19] MEDS: Losartan Potassium 25 MG TABLET PO (08:03)
--- NOTE | 2021-01-19 11:02 | MHC.CM.PN ---
Addendum entered by Marissa Tamayo 01/19/21 14:17: CORRECTION:PT BEING TRANSFERRED TO [facility] TODAY VIA [facility] Addendum entered by Marissa Tamayo 01/19/21 12:36: PT CLEARED TO DC HOME TODAY Original Note: CM MET WITH PT WHO REPORTS HE LIVES AT HOME WITH HIS AND IS FULLY INDEPENDENT WITH NO SERVICES AND NO DME AT BASELINE. 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 PT REPORTS HE HAS A HCP COMPLETED NAMING HIS , AMBIKA ([phone]) HIS AGENT. PT CONFIRMS HIS PCP IS JACQUE GARRISON. CURRENT DC PLAN IS HOME WITH NO SERVICES PT WILL DRIVE HIMSELF HOME, CAR IN LOT
[2021-01-19 11:10] VITALS: BP 115/73; PULSE 100; RESP 18; TEMP 36.4; O2SAT 98
--- NOTE | 2021-01-19 12:24 | PM.PNCARD ---
Subjective Subjective Date of Service: 01/19/21 Interval history: Feeling good. No SOB or CP. Echo reviewed with the patient. Physical Exam Vital Signs: Last Vital Signs Temp 97.6 F 01/19/21 11:10 Pulse 100 01/19/21 11:10 Resp 18 01/19/21 11:10 BP 115/73 01/19/21 11:10 Pulse Ox 98 01/19/21 11:10 Body Mass Index 23.6 GENERAL APPEARANCE: in no acute distress, pleasant. NECK: no carotid bruit, no jugular venous distention. SKIN: no suspicious lesions, warm and dry. HEART: Apical holosystolic murmur radiating to axilla, regular rate and rhythm. tachycardic LUNGS: clear to auscultation bilaterally. ABDOMEN: soft, nontender. EXTREMITIES: no edema. PERIPHERAL PULSES: equal. NEUROLOGIC: No gross deficits, AAO X 3 Results Labs and Meds Result diagrams: 01/18/21 05:31 01/19/21 05:35 Lab results: Laboratory Results - last 24 hr 01/19/21 01/19/21 05:35 05:36 Sodium 142 Potassium 4.0 Chloride 107 Carbon Dioxide 29 Anion Gap 10 L BUN 21 H Creatinine 1.00 Estim Creat Clear Calc 67.3 Estimated GFR > 60 Random Glucose 87 Calcium 8.9 B-Natriuretic Peptide 1569 H Progress Note: A&P Assessment and plan (1) Severe aortic stenosis: Status: Acute (2) CHF (congestive heart failure): Status: Acute Assessment and Plan: 65-year-old gentleman who is presenting for shortness of breath, orthopnea and PND. Echocardiography is showing low-flow low gradient severe aortic stenosis with severe cardiomyopathy. Clinically volume ache. Continue 40 mg p.o. Lasix. Continue losartan 25 mg once a day. Will not give him beta frank right now. continue monitor CIWA scale because he was drinking beer daily. I had a detailed discussion with him about transfer to [facility] to do left and right heart catheterization to understand coronary anatomy and hemodynamics and to proceed with valve replacement plus-minus bypass surgery. He is agreeable and I am going to transfer to [facility]. Thank you for allowing me to participate in the care of your patient. Please feel free to contact me if you have any questions. Fall Risk Details Current Medications: Current Medications Generic Name Dose Route Start Last Admin Trade Name Freq PRN Reason Stop Dose Admin Acetaminophen 650 mg 01/17/21 20:54 01/18/21 08:21 Acetaminophen 325 Mg Tablet PO 650 mg Q6H PRN Administration Pain, Mild (Pain Scale 1-3) Aspirin 81 mg 01/19/21 09:00 01/19/21 07:55 Aspirin 81 Mg Tab.Chew PO 81 mg DAILY JUDE Administration Enoxaparin Sodium 40 mg 01/17/21 21:00 01/18/21 20:05 Enoxaparin Sodium 40 Mg/0.4 Ml Syringe SUBCUT 40 mg Q24H JUDE Administration Furosemide 40 mg 01/19/21 09:00 01/19/21 07:55 Furosemide 40 Mg Tablet PO 40 mg DAILY JUDE Administration Protocol Losartan Potassium 25 mg 01/18/21 16:00 01/19/21 08:03 Losartan Potassium 25 Mg Tablet PO 25 mg DAILY JUDE Administration Protocol Magnesium Hydroxide 30 ml 01/17/21 20:54 01/19/21 07:55 Milk Of Magnesia 30 Ml Oral.Susp PO 30 ml DAILY PRN Administration Constipation Melatonin 6 mg 01/17/21 20:54 Melatonin 3 Mg Tablet PO BEDTIME PRN Insomnia Morphine Sulfate 1 mg 01/17/21 20:54 Morphine Sulfate 2 Mg/Ml Cartridge IVPUSH Q4H PRN Shortness of Breath/Wheezing Naloxone HCl 0.2 mg 01/17/21 20:54 Naloxone Hcl 0.4 Mg/Ml Vial IVPUSH Q2M PRN Excessive sedation or RR < 8 Nitroglycerin 0.4 mg 01/17/21 20:54 Nitroglycerin 0.4 Mg Tab.Subl SUBLINGUAL Q5M PRN Chest Pain Pharmacy Consult 1 each 01/17/21 15:41 Consult Rx Perform Med Rec MISCELLANE ONCE PRN Consult order Senna 17.2 mg 01/17/21 20:54 Sennosides 8.6 Mg Tablet PO BEDTIME PRN Constipation Sodium Chloride 3 ml 01/18/21 00:00 01/19/21 07:56 0.9 % Sodium Chloride Flush 3 Ml Syringe IVFLUSH 3 ml QSHIFT JUDE Administration Time Spent With Patient Time: Total time spent is greater than 50% in coordination of care (as documented) at patient's floor/unit and/or counseling patient: Time with patient: 25 - 35 minutes Progress Note: Quality Stroke Does the patient have a stroke diagnosis?: No Procedures Date of Service Date of Service: 01/19/21
--- NOTE | 2021-01-19 13:25 | P.DS_ITS ---
DS: Providers Provider Date of Service: 01/19/21 Date of admission: 01/17/21 20:54 Primary care physician: Jose Tate MD Consults: 01/17/21 20:54 Consult to Cardiology Routine Consulting Provider: Liuz Ruiz Reason for consultation: CHf; elevated troponin DS: Diagnosis Discharge Diagnosis (1) Severe aortic stenosis: Status: Acute (2) CHF (congestive heart failure): Status: Acute DS: Medications Discharge Medications Home Medications: Home Medications Medication Instructions Recorded Confirmed acetaminophen 650 mg PO Q6H PRN 01/17/21 01/17/21 aspirin 81 mg PO DAILY PRN 01/17/21 01/17/21 Previous Rx's Medication Instructions Recorded furosemide 40 mg PO DAILY #40 tab 01/19/21 losartan 25 mg PO DAILY #30 tab 01/19/21 DS: Summary Hospital Course Hospital Course: history of presenting illness Chief Complaint: SOB 65-year-old female with a past medical history of hypertension-noncompliant with medications, tobacco dependence, presented to the hospital with a chief complaint of chest pain/shortness of breath/dyspnea on exertion; reportedly symptoms have been going on for the past 2 weeks. Which have been gradually worsening. Also complains of palpitations. Denies any lightheadedness. Denies any nausea vomiting or diaphoresis associated with the chest discomfort. Denies any fever chills cough. Denies any GI or symptoms. Review of all other systems is negative except mentioned above Hospital course 65-year-old gentleman with past medical history of hypertension currently not on medication,presented with symptoms of chest pain of several months duration recently developed shortness of breath worse with exertion in ER noted to have elevated BNP ,EKG showed ST depression in inferior leads and V5 - V6 consistent with strain pattern, troponins x2 indeterminate, CT angio negative for pulmonary embolism, labs showed mild transaminitis, patient admitted to intermediate care unit with a diagnosis of acute congestive heart failure and treated with IV Lasix patient responded well to above treatment shortness of breath resolved, an echocardiogram was obtained that showed severe aortic stenosis, severe pulmonary hypertension, moderatel MR and TR, with an EF of 20- 25% with global hypokinesis, therefore is started on losartan and is being discharged to [facility] for cardiac catheterization to rule out underlying ischemia and for management of aortic stenosis, patient EKG changes and mildly elevated troponin likely related to uncontrolled blood pressure ,chf and not c/w acute coronary syndrome, Hypertension noted to have elevated blood pressure on admit, started on low-dose losartan blood pressure has improved. Time Spent with Patient Time attestation: Total time spent providing and/or coordinating discharge services: Discharge coordination time: Greater than 30 minutes Quality: Stroke Does the patient have a stroke diagnosis?: No Physical Exam Vital Signs: Vital Signs: Last Vital Signs Temp 97.6 F 01/19/21 11:10 Pulse 100 01/19/21 11:10 Resp 18 01/19/21 11:10 BP 115/73 01/19/21 11:10 Pulse Ox 98 01/19/21 11:10 Body Mass Index 23.6 GENERAL APPEARANCE: in no acute distress, pleasant. NECK: no carotid bruit, no jugular venous distention. SKIN: no suspicious lesions, warm and dry. HEART: Apical holosystolic murmur radiating to axilla, regular rate and rhythm. tachycardic LUNGS: clear to auscultation bilaterally. ABDOMEN: soft, nontender. EXTREMITIES: no edema. PERIPHERAL PULSES: equal. NEUROLOGIC: No gross deficits, alert oriented x3 DS: Data Data Completed and Pending Labs on day of discharge: Laboratory Results - last 24 hr 01/19/21 01/19/21 05:35 05:36 Sodium 142 Potassium 4.0 Chloride 107 Carbon Dioxide 29 Anion Gap 10 L BUN 21 H Creatinine 1.00 Estim Creat Clear Calc 67.3 Estimated GFR > 60 Random Glucose 87 Calcium 8.9 B-Natriuretic Peptide 1569 H Discharge Plan Discharge Patient Disposition: Xfer Acute Care Hospital Discharge Diagnosis: acute congestive heart failure due to cardiomyopathy severe aortic stenosis Referrals: Jose Tate MD [Primary Care Provider] - 1 Week Discharge Medications: New furosemide 40 mg Tablet 40 mg PO DAILY Qty: 40 RF: 0 losartan 25 mg Tablet 25 mg PO DAILY Qty: 30 RF: 0 Continued acetaminophen 325 mg Tablet 650 mg PO Q6H PRN (Reason: Pain) RF: 0 aspirin 81 mg Tablet,Chewable 81 mg PO DAILY PRN (Reason: Pain) RF: 0 Discontinued NyQuil 7.5-60-30-1,000 mg/30 mL Liquid 30 ml PO Q4-6H PRN (Reason: Sleep) RF: 0 Discharge Orders: Discharge Order (Routine); Ordered 01/19/21 Ordered By: Maria Ines Allen Diet: low fat, low cholesterol Activity on Discharge: As tolerated Stand Alone Forms: Patient Portal Discharge page Care Plan Goals: severe aortic stenosis/cardiomyopathy you are being discharged to [facility] for cardiac catheterization Health Concerns: continue all medications as prescribed Plan of Treatment: outpatient follow-up with primary care physician and sheet sorter Dr. Ruiz Assessment: as above
--- NOTE | 2021-01-19 14:20 | MHC.INPTTRAN ---
1400 A @ O. No c/o pain today. Voiding qs Had BM today. Helen diet. No N/V. in SR with ST depression. VSS independent in room. Last Lovenox injection was 8pm on . thanks.
[2021-01-20 03:37] LABS: HBc Num1 0.07 S/CO (0.00-0.79); HBsAGNum1 0.18 S/CO (0.00-0.99); Hepatitis B Core Antibody Nonreactive (Nonreactive); Hepatitis B Surface Antigen Negative (Negative); ~HepC Num1 0.05 S/CO (0.00-0.79); ~Hepatitis C Antibody Nonreactive (Nonreactive)
[2021-01-20 03:43] LABS: ~Hepatitis B Surface Antibody NONREACTIVE (Nonreactive)
[2021-01-20 17:33] LABS: Lyme Abs Screen <0.90 index
[2021-01-22 08:31] LABS: HBS Num1 0.11 mIU/mL (0-7.99)
[2021-01-22 09:22] LABS: Hepatitis A Antibody IgM 0.11 Index (0-0.79); ~Hepatitis A Antibody IgM Nonreactive (Nonreactive)
== END 2021-01-19 14:56 | disposition short-term general hospital (02) | DRG 194 ==
LOC: HO.ED 19:31 → HO.IMC 22:18
PROVIDERS: Emergency Medicine; Admitting Provider Hospitalist; Emergency Provider Internal Medicine; PCP Internal Medicine; Visit Provider Hospitalist
DX: I11.0 Hypertensive heart disease with heart failure (principal); I24.8 Other forms of acute ischemic heart disease; I42.9 Cardiomyopathy, unspecified; I50.41 Acute combined systolic (congestive) and diastolic (congestive) heart failure; I35.0 Nonrheumatic aortic (valve) stenosis; I16.0 Hypertensive urgency; Z91.14 Patient's other noncompliance with medication regimen; Z20.822 Contact with and (suspected) exposure to COVID-19; Z79.82 Long term (current) use of aspirin; Z79.899 Other long term (current) drug therapy
CPT/HCPCS: 36415; 71045; 71275; 74176; 80048; 80061; 80076; 83690; 83735; 83880; 84484; 85025; 85027; 85379; 85610; 85730; 86617; 86618; 86704; 86706; 86709; 86803; 87340; 87635; 93005; 93306; 99285; J1650; J1940; Q9967

== ENCOUNTER → 2021-02-19 14:58 | Outpatient (BNVA) | payer BC, SELFPAY | PROVIDERS: PCP Internal Medicine; Referring Provider Internal Medicine; Visit Provider Nurse Practitioner Family | DX: I25.10 Atherosclerotic heart disease of native coronary artery without angina pectoris (principal); I35.0 Nonrheumatic aortic (valve) stenosis; I65.23 Occlusion and stenosis of bilateral carotid arteries; Z95.1 Presence of aortocoronary bypass graft; Z95.2 Presence of prosthetic heart valve; Z98.890 Other specified postprocedural states; Z79.02 Long term (current) use of antithrombotics/antiplatelets; Z79.82 Long term (current) use of aspirin; Z79.899 Other long term (current) drug therapy | CPT/HCPCS: 93005 ==

== ENCOUNTER 2021-02-27 11:25 | Outpatient (REF) | payer BC, SELFPAY ==
[2021-02-27 13:03] LABS: MANUAL DIFF FLAG NO
[2021-02-27 13:08] LABS: Basophils Percent Auto 0.4 % (0-2); Eosinophils Absolute Auto 0.7 X10*3/uL (0.0-0.4); Eosinophils Percent Auto 6.1 % (0-4); Hematocrit 37.2 % (42-52); Hemoglobin 11.8 g/dl (14.0-18.0); Imm Gran Abs Auto 0.03 X10*3/uL (0.00-0.03); Imm Gran Pct Auto 0.3 % (0.0-0.4); Lymphocytes Absolute Auto 0.9 X10*3/uL (1.2-4.9); Lymphocytes Percent Auto 8.1 % (20-40); Mean Corpuscular HGB Conc 31.7 g/dl (31.0-36.0); Mean Corpuscular Hemoglobin 30.4 pg (27.0-33.0); Mean Corpuscular Volume 95.9 fL (80-98); Mean Platelet Volume 8.6 fL (9.4-12.4); Monocytes Absolute Auto 0.9 X10*3/uL (0.1-1.2); Monocytes Percent Auto 8.4 % (2-11); Neutrophils Absolute Auto 8.3 X10*3/uL (2.0-8.3); Neutrophils Percent Auto 76.7 % (45-73); Platelet Count 348 X10*3/uL (160-400); Red Blood Count 3.88 X10*6/uL (4.60-5.80); Red Cell Distribution Width 14.4 % (11.0-16.0); White Blood Count 10.8 X10*3/uL (4.8-10.8)
[2021-02-27 13:25] LABS: Alanine Aminotransferase 21 U/L (0-40); Albumin Level 4.2 g/dL (3.5-5.0); Alkaline Phosphatase 192 U/L (39-117); Anion Gap 13 (12-20); Aspartate Amino Transferase 18 U/L (5-37); Bilirubin Total 0.8 mg/dL (0.0-1.0); Blood Urea Nitrogen 16 mg/dL (9-16); Calcium 9.6 mg/dL (8.4-10.2); Carbon Dioxide 25 mmol/L (22-29); Chloride 102 mmol/L (96-108); Estimated Glomerular Filt Rate > 60; Glucose Random 133 mg/dL (60-115); Potassium 4.8 mmol/L (3.3-5.1); Sodium 135 mmol/L (135-145)
[2021-02-27 13:47] LABS: Prostate Specific Antigen 1.52 ng/mL (<0.05-4.0)
== END 2021-02-27 11:26 | disposition home or self-care (01) ==
LOC: HO.LAB 11:25
PROVIDERS: PCP Internal Medicine; Visit Provider Internal Medicine
DX: Z12.5 Encounter for screening for malignant neoplasm of prostate (principal); N40.0 Benign prostatic hyperplasia without lower urinary tract symptoms; Z95.1 Presence of aortocoronary bypass graft
CPT/HCPCS: 36415; 80053; 84153; 85025

== ENCOUNTER → 2021-03-27 15:02 | Outpatient (REF) | payer BC, SELFPAY ==
--- NOTE | 2021-03-27 15:05 | CA_ITS ---
Transthoracic Echocardiogram Patient (Last, First, Middle): Mathew Birch A Gender: Male Date of : 1955 Age: 65 Procedure Date: 03/27/2021 Procedure Type: Transthoracic Echocardiogram Location: OP Height: 165.1 cm Weight: 61.69 kg BSA: 1.68 m2 Heart Rate: bpm BP: 120 / 60 mmHg Hyperion Administrator: JOBY/BOLIVAR Referring MD: Elzbieta Kauffman DIE REAMER-C Livestock Broker: Cortez Hanson MD Symptoms: Z95.1 - Presence of aortocoronary bypass graft Study Quality: Fair ECG Rhythm: Sinus Conclusions: - 1. Low normal LV systolic function with regional wall motion abnormality with impaired relaxation filling pattern 2. Mildly dilated left atrium 3. Bioprosthetic aortic valve in position with patient prosthesis mismatch 4. Mild mitral regurgitation 5. Normal RV systolic pressure 6. No gross pericardial effusion Findings Left Ventricle Normal left ventricular cavity size. There is normal left ventricular wall thickness. The left ventricular systolic function is low normal. The visually estimated ejection fraction is between 50-55%. There is paradoxical septal motion consistent with post-operative status. Spectral Doppler is indicative of an impaired relaxation filling pattern. E/E prime ratio is between 8 and 15 consistent with indeterminate filling pressures. Wall Motion Rest Echo Findings The basal inferoseptal segment is hypokinetic. The basal inferior and basal inferolateral segments are akinetic. All other scored wall segments showed normal motion. Right Ventricle Normal right ventricular cavity size. There is mildly decreased right ventricular systolic function. Atria The left atrium is mildly dilated. There is no evidence of interatrial shunt. The right atrium is normal in size. Aortic Valve A bioprosthetic aortic valve is present. The peak aortic velocity is 3.21 m/s with a calculated peak gradient of 41 mmHg. The mean gradient is 20 mmHg. A stented bioprosthesis is noted in aortic position. The valve is well seated with no abnormal rocking motion. The mean gradient across the valve is increased however the aortic ejection velocity appears to be within normal limits, most suggestive of patient prosthesis mismatch. Calculated effective orifice area is 1.1 centimeters sq in moderate to severe stenotic range Mitral Valve There is mild anterior and moderate posterior mitral leaflet thickening. There is moderate mitral annular calcification. There is mild mitral valve regurgitation. There is no mitral valve stenosis. Pulmonic Valve The pulmonic valve is likely normal. There is trace to mild pulmonic valve regurgitation. Tricuspid Valve Normal tricuspid valve structure. There is mild tricuspid valve regurgitation. The right ventricular systolic pressure is normal. The right ventricular systolic pressure is 28 mmHg. Normal right atrial pressure. There is no evidence of pulmonary hypertension. Great Vessels All visible segments of the aorta are normal in size. The pulmonary artery was not well visualized. Venous The inferior vena cava is normal in size and collapses greater than 50% with inspiration. Pericardium/Pleural There is no evidence of pericardial effusion. Prior Study Comparison Changes noted compared to prior study dated: 01/18/2021. LV systolic function significantly improved. There is a bioprosthetic aortic valve present with increased gradient most suggestive of patient prosthesis mismatch. Mitral regurgitation is reduced. RV systolic pressure have significantly improved Measurements 2D Linear Measurements IVSd: 0.97 0.6-0.9/0.6-1.0 cm LVIDd: 4.95 3.9-5.3/4.2-5.9 cm LVIDd Index: 2.95 2.4-3.2/2.2-3.1 cm/m2 LVIDs: 3.79 2.0-3.6 cm LVPWd: 0.96 0.7-1.1 cm Ao Root: 2.70 2.1-3.5 cm LA Diam: 4.20 2.7-3.8/3.0-4.0 cm LAIDs Index: 2.50 1.5-2.3 cm/m2 LV Mass: 212.25 67-162/88-224 g LV Mass Index: 126.34 43-95/49-115 g/m2 LVOT Diam: 2.00 3.0+(-)1.3 cm 2D Systolic Function EF 4C: 45.70 >55% EF 2C: 52.70 >55% EF BiP: 51.30 >55% Mitral Valve MV Pk E: 1.13 MV PK A: 0.89 MV Decel Time: 175.00 E/A: 1.30 E'Lateral: 8.38 E'Medial: 5.55 E/E' Med: 20.40 E/E' Lat: 13.50 PHT: 51.00 MVA PHT: 4.31 Decel Wise: 6.46 Aortic Valve AoV Pk Ramin: 3.21 AoV Mn Ramin: 2.11 AoV VTI: 0.65 AoV Pk Grad: 41.00 Aov Mn Grad: 20.00 JENNIFER Cont.VTI: 1.12 LVOT LVOT Pk Ramin: 1.05 LVOT Mn Ramin: 0.60 LVOT VTI: 0.23 LVOT Pk Grad: 4.00 LVOT Mn Grad: 2.00 LVOT Diam: 2.00 LVOT Area: 3.14 Diastolic Function MV Pk E: 1.13 MV Pk A: 0.89 E/A: 1.30 E'Medial: 5.55 E/E' Med: 20.40 E' Laterial: 8.38 E/E' Lat: 13.50 Right Ventricle TAPSE (mm): 1.20 TVS' Ramin: 6.53 Tricuspid Valve TR Pk Ramin: 2.52 TR Pk Grad: 25.00 RA Press: 3.00 RVSP: 28.00 Great Vessels Aorta Ao Root-2D: 2.70 2.0-3.7 cm Ao Asc: 3.20 2.1-3.4 cm Ao Arch: 2.80 Updated in Other Vendor System with Status of Final Cortez Hanson MD electronically signed on 03/28/2021 11:22:58 AM with status of Final
== END ==
LOC: HO.CARD 15:02
PROVIDERS: Visit Provider Nurse Practitioner Family
DX: I25.10 Atherosclerotic heart disease of native coronary artery without angina pectoris (principal); I35.0 Nonrheumatic aortic (valve) stenosis; Z95.1 Presence of aortocoronary bypass graft; Z95.2 Presence of prosthetic heart valve
CPT/HCPCS: 93306

== ENCOUNTER → 2021-04-03 12:39 | Outpatient (BNVA) | payer BC, SELFPAY | PROVIDERS: PCP Internal Medicine; Referring Provider Internal Medicine; Visit Provider Nurse Practitioner Family ==

== ENCOUNTER 2021-04-15 12:16 | Outpatient (REF) | payer BC, SELFPAY ==
[2021-04-15 13:29] LABS: Alanine Aminotransferase 47 U/L (0-40); Aspartate Amino Transferase 28 U/L (5-37); Cholesterol 135 mg/dL; HDL Cholesterol 35 mg/dL; LDL Cholesterol Calculated 80 mg/dl; Triglycerides 104 mg/dL
== END 2021-04-15 12:17 | disposition home or self-care (01) ==
LOC: HO.LAB 12:16
PROVIDERS: PCP Internal Medicine; Visit Provider Nurse Practitioner Family
DX: I25.10 Atherosclerotic heart disease of native coronary artery without angina pectoris (principal)
CPT/HCPCS: 36415; 80061; 84450; 84460

== ENCOUNTER 2021-07-01 11:14 | Outpatient (REF) | payer BC, SELFPAY ==
[2021-07-01 12:21] LABS: Alanine Aminotransferase 40 U/L (0-40); Aspartate Amino Transferase 29 U/L (5-37); Cholesterol 119 mg/dL; HDL Cholesterol 42 mg/dL; LDL Cholesterol Calculated 63 mg/dl; Triglycerides 72 mg/dL
== END 2021-07-01 11:15 | disposition home or self-care (01) ==
LOC: HO.LAB 11:14
PROVIDERS: PCP Internal Medicine; Visit Provider Nurse Practitioner Family
DX: Z95.1 Presence of aortocoronary bypass graft (principal)
CPT/HCPCS: 36415; 80061; 84450; 84460

== ENCOUNTER → 2021-07-02 13:41 | Outpatient (BNVA) | payer BC, SELFPAY | PROVIDERS: PCP Internal Medicine; Referring Provider Internal Medicine; Visit Provider Internal Medicine Cardiovascular Disease ==

== ENCOUNTER 2021-11-30 16:15 | Emergency (ER) | payer BC, SELFPAY ==
--- NOTE | ~2021-11-30 | US_ITS ---
EXAMINATION: US VENOUS ULTRASOUND WITH DOPPLER LOWER EXTREMITY, LEFT CLINICAL INFORMATION: Swelling and pain COMPARISON: None TECHNIQUE: Ultrasound of the deep veins is performed from the hip to the calf with compression sonography and color and pulse Doppler assessment. Spectral analysis with color-flow imaging is performed. FINDINGS: There is normal venous compression and respiratory variation and augmented flow. The visualized common femoral vein, superficial femoral vein, profunda femoral vein, popliteal vein, and the trifurcation region shows no evidence of deep venous thrombosis. There is no significant popliteal fossa cyst. At the area of the injury there is subcutaneous complex fluid probably subcutaneous hematoma. This was not measured. If the patient's symptoms persist, followup ultrasound in 5 days 7 days might be of value to exclude proximal propagation from a non-visualized calf vein. US/US venous duplex LE LT IMPRESSION: No DVT demonstrated in the left lower extremity., There is a probably subcutaneous edema or hematoma at the area of injury.
[2021-11-30 16:19] VITALS: BP 189/94; PULSE 81; RESP 18; TEMP 37; O2SAT 99; BMI 23.8
--- NOTE | 2021-11-30 16:44 | ED_ITS ---
HPI - Extremity Injury (Lower) General Chief Complaint: Extremity Injury, Lower Stated Complaint: Bruised Bob ingram Time Seen by Provider: 11/30/21 16:38 Source: patient Mode of arrival: ambulatory Limitations: no limitations History of Present Illness HPI Narrative: Patient comes emergency room complaining of left calf pain and swelling. Patient states he was lowering a trailer truck, part of it struck him on the left calf. Patient states that he has been having swelling and pain since it happened prior to arrival. Patient is on Plavix and aspirin. Patient did not sustain any other injuries. Related Data Home Medications Medication Instructions Recorded Confirmed acetaminophen 325 mg tablet 650 mg PO Q6H PRN 01/17/21 07/02/21 Previous Rx's Medication Instructions Recorded aspirin 81 mg chewable tablet 81 mg PO DAILY 90 Days #90 tab 03/06/21 losartan 25 mg tablet 25 mg PO DAILY #90 tab 04/03/21 atorvastatin 80 mg tablet 80 mg PO DAILY 90 Days #90 tab 08/29/21 clopidogrel 75 mg tablet 75 mg PO DAILY 90 Days #90 tab 08/29/21 metoprolol succinate 25 mg 25 mg PO DAILY 90 Days #90 tab 08/29/21 tablet,extended release 24 hr spironolactone 25 mg tablet 25 mg PO DAILY 90 Days #90 tab 08/29/21 valsartan 40 mg tablet 40 mg PO DAILY 90 Days #90 tab 10/01/21 ezetimibe 10 mg tablet (Zetia) 10 mg PO DAILY #30 tab 10/15/21 Allergies Allergy/AdvReac Type Severity Reaction Status Date / Time No Known Allergies Allergy Verified 11/30/21 16:19 Review of Systems Review of Systems: Constitutional : No Weight loss, No Fever, No Chills, No Night Sweats, No Fatigue, No Malaise ENT/Mouth : No Hearing loss, No Ear Pain, No Nasal Congestion, No Sinus Pain, No Hoarseness, No sore throat, No Rhinorrhea, No Swallowing Difficulty Eyes: No Eye Pain, No Swelling, No Redness, No Foreign Body, No Discharge, No Vision Changes Cardiovascular : No Chest Pain, No SOB, No Dyspnea on Exertion, No Orthopnea, No Edema, No Palpitations Respiratory : No Cough, No Sputum, No Wheezing, No Smoke Exposure, No Dyspnea Gastrointestinal : No Nausea, No Vomiting, No Diarrhea, No Constipation, No abdominal Pain, No Hematochezia, No Melena Genitourinary : no irregular bleeding, No Dysuria, No Urinary Frequency, No Hematuria, No Urinary Incontinence, No Urgency, No Flank Pain, No Urinary Flow Changes, No Hesitancy Musculoskeletal : No joint pain, complaining of left calf pain and swelling Skin : No Skin Lesions, No rash Neuro : No Weakness, No Numbness, No Paresthesias, No Loss of Consciousness, No Dizziness, No Headache Psych : No Anxiety/Panic, No Depression, No SI/HI/AH/VH, No Social Issues, Heme/Lymph: No Bruising, No Bleeding,No Lymphadenopathy Endocrine : No Polyuria, No Polydipsia, No Temperature Intolerance [facility] Past Medical History Medical History CAD (coronary artery disease) Carotid stenosis HTN (hypertension) Severe aortic stenosis Surgical History S/P AVR S/P CABG x 4 Status post cardiac catheterization Family History Family History (Updated 07/02/21 @ 14:15 by MATTHEW Delgado) Mother Brain aneurysm Father Prostate cancer H/O heart bypass surgery Social History Social History Household Members: Family Housing: House Alcohol intake: current Alcohol intake frequency: 0-2 drinks per day Patient Tobacco Use Status: Never used Tobacco Advance Directives: Yes Advance Directives Information Provided: No Advance Directives on File: No Advance Directives Date on File: 01/17/21 service: No Current occupational status: employed Physical Exam Vital Signs: Vital Signs: Last Vital Signs Temp 98.6 F 11/30/21 16:19 Pulse 81 11/30/21 16:19 Resp 18 11/30/21 16:19 BP 189/94 H 11/30/21 16:19 Pulse Ox 99 11/30/21 16:19 BMI result Body Mass Index 23.8 Const: Other: Appearance: Alert. Oriented X3. No acute distress. Eyes: Pupils equal, round and reactive to light. ENT: Pharynx normal. Neck: Normal inspection. Neck supple. No lymph nodes noted. No crepitus CVS: Normal heart rate and rhythm. Pulses normal. Normal S1 and S2 Respiratory: No respiratory distress. Breath sounds normal. No Wheezing. No rales Abdomen: Soft and nontender. No rigidity. No distention. Skin: Skin warm and dry. Normal skin color. Normal skin turgor. Extremities: No lower extremity edema. Patient has a moderate swelling in the left calf, ecchymosis, pain to palpation. Small abrasion in the skin, no laceration Neuro: Oriented X 3. No motor deficit. No sensory deficit. Moving all extremities. No slurred speech. CN 2 through 12 grossly intact Psych: calm, cooperative, normal affect Course Course Course Narrative: Ultrasound venous duplex pending. Patient states that he does not want any pain medication. I discussed the ultrasound with the patient, no DVT. I revaluated the leg. Since the patient has been here, the size of the hematoma has not changed in size. Patient will be icing and applying mild to moderate pressure to the injury site. Patient is able to bear weight, declined crutches. Gastrocnemius tendon rupture is not suspected Discharge Plan Discharge Clinical Impression: Hematoma of left lower leg Patient Disposition: Home, Self-Care Instructions: Hematoma (ED), R.I.C.E. Treatment (ED) Additional Instructions: Please follow-up with your primary care physician tomorrow. If you have any worsening or new symptoms, please return to the emergency room or call 911 Prescriptions: No Action aspirin 81 mg tablet,chewable 81 mg PO DAILY 90 Days Qty: 90 1RF spironolactone 25 mg tablet 25 mg PO DAILY 90 Days Qty: 90 2RF metoprolol succinate 25 mg tablet extended release 24 hr 25 mg PO DAILY 90 Days Qty: 90 2RF clopidogrel 75 mg tablet 75 mg PO DAILY 90 Days Qty: 90 2RF atorvastatin 80 mg tablet 80 mg PO DAILY 90 Days Qty: 90 2RF valsartan 40 mg tablet 40 mg PO DAILY 90 Days Qty: 90 1RF Rx Instructions: Replaces losartan ezetimibe [Zetia] 10 mg tablet 10 mg PO DAILY Qty: 30 5RF acetaminophen 325 mg Tablet 650 mg PO Q6H PRN (Reason: Pain) 0RF losartan 25 mg tablet 25 mg PO DAILY Qty: 90 1RF Rx Instructions: one tablet daily
[2021-11-30 19:16] VITALS: BP 168/88; PULSE 85; RESP 18; TEMP 36.6; O2SAT 98
== END 2021-11-30 19:18 | disposition home or self-care (01) ==
PROVIDERS: Emergency Provider Emergency Medicine; PCP Internal Medicine
DX: S80.12XA Contusion of left lower leg, initial encounter (principal); R60.0 Localized edema; I25.10 Atherosclerotic heart disease of native coronary artery without angina pectoris; Y29.XXXA Contact with blunt object, undetermined intent, initial encounter; Y93.9 Activity, unspecified; Y92.9 Unspecified place or not applicable; Y99.9 Unspecified external cause status; Z79.899 Other long term (current) drug therapy
CPT/HCPCS: 93971; 99283; 99284

== ENCOUNTER 2021-12-18 14:42 | Outpatient (REF) | payer BC, SELFPAY ==
[2021-12-18 15:48] LABS: Alanine Aminotransferase 31 U/L (0-40); Albumin Level 4.2 g/dL (3.5-5.0); Alkaline Phosphatase 97 U/L (39-117); Anion Gap 12 (12-20); Aspartate Amino Transferase 25 U/L (5-37); Bilirubin Total 0.6 mg/dL (0.0-1.0); Blood Urea Nitrogen 24 mg/dL (9-16); Calcium 9.6 mg/dL (8.4-10.2); Carbon Dioxide 24 mmol/L (22-29); Chloride 105 mmol/L (96-108); Estimated Glomerular Filt Rate > 60; Glucose Random 95 mg/dL (60-115); Potassium 4.3 mmol/L (3.3-5.1); Sodium 137 mmol/L (135-145); Total Protein 6.9 g/dL (6.5-8.0)
[2021-12-20 01:02] LABS: Lyme Abs Screen <0.90 index
== END 2021-12-18 14:43 | disposition home or self-care (01) ==
LOC: HO.LAB 14:42
PROVIDERS: PCP Internal Medicine; Visit Provider Internal Medicine
DX: I10 Essential (primary) hypertension (principal); I25.10 Atherosclerotic heart disease of native coronary artery without angina pectoris; T14.8XXA Other injury of unspecified body region, initial encounter
CPT/HCPCS: 36415; 80053; 86617; 86618

== ENCOUNTER → 2022-01-07 13:18 | Outpatient (BNVA) | payer BC, SELFPAY | PROVIDERS: PCP Internal Medicine; Referring Provider Internal Medicine; Visit Provider Nurse Practitioner Family | DX: I25.10 Atherosclerotic heart disease of native coronary artery without angina pectoris (principal); R94.31 Abnormal electrocardiogram [ECG] [EKG]; I35.0 Nonrheumatic aortic (valve) stenosis; I65.29 Occlusion and stenosis of unspecified carotid artery; Z95.2 Presence of prosthetic heart valve; Z95.1 Presence of aortocoronary bypass graft; Z98.890 Other specified postprocedural states | CPT/HCPCS: 93005 ==

== ENCOUNTER → 2022-02-12 12:52 | Outpatient (REF) | payer BC, SELFPAY ==
--- NOTE | 2022-02-12 12:55 | CA_ITS ---
Transthoracic Echocardiogram Patient (Last, First, Middle): Mathew Birch A Gender: Male Date of : 1955 Age: 66 Procedure Date: 02/12/2022 Procedure Type: Transthoracic Echocardiogram Location: OP Height: 165.1 cm Weight: 64.86 kg BSA: 1.72 m2 Heart Rate: bpm BP: 110 / 67 mmHg Post Commander: TO Referring MD: Elzbieta SCHAFER Patient'S Librarian: Cortez Hanson MD Symptoms: I25.10 - Atherosclerotic heart disease of [place] coronary artery without... Study Quality: Fair ECG Rhythm: Sinus Conclusions: - 1. Mildly reduced LV systolic function with mild LVH with pseudonormal filling pattern 2. Enlarged RV with reduced systolic function 3. 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 Normal RV systolic pressure 5. No pericardial effusion Findings Left Ventricle Normal left ventricular cavity size. There is mildly increased left ventricular wall thickness. The left ventricular systolic function is mildly decreased. The visually estimated ejection fraction is between 45-50%. There is paradoxical septal motion consistent with post-operative status. Spectral Doppler is indicative of a pseudonormal filling pattern. E/E prime ratio is between 8 and 15 consistent with indeterminate filling pressures. Wall Motion Rest Echo Findings The basal inferoseptal segment is hypokinetic. The basal inferior segment is akinetic. All other scored wall segments showed normal motion. Right Ventricle Moderately increased right ventricular cavity size. There is moderately decreased right ventricular systolic function. Atria The left atrium is likely dilated. There is no evidence of interatrial shunt. The right atrium is mildly dilated. Aortic Valve A bioprosthetic aortic valve is present. The prosthetic aortic valve appears to be functioning abnormally. The mean gradient is 26 mmHg. the valve is well seated with no abnormal rocking motion however valve struts appear thickened. The mean gradient having increased to 26 mmHg compared to prior study of 20 mm Hg with calculated valve area of 0.89 cm which is consistent with stenosis of bioprosthetic valve. Mitral Valve There is mild anterior and posterior mitral leaflet thickening. There is mild mitral valve regurgitation. There is no mitral valve stenosis. Pulmonic Valve The pulmonic valve was not well visualized. Tricuspid Valve Likely normal tricuspid valve structure and function. There is mild tricuspid valve regurgitation. The right ventricular systolic pressure is normal. The right ventricular systolic pressure is 30 mmHg. Normal right atrial pressure. There is no evidence of pulmonary hypertension. Great Vessels All visible segments of the aorta are normal in size. The pulmonary artery was not well visualized. Venous The inferior vena cava is normal in size and collapses greater than 50% with inspiration. Pericardium/Pleural There is no evidence of pericardial effusion. Prior Study Comparison Changes noted compared to prior study dated: 03/27/2021. LV systolic function is mildly reduced. Mean gradient across bioprosthetic valve is further increased to 26 mmHg Recommendations, Care & Conclusions Consider a JIM if clinically appropriate. Measurements 2D Linear Measurements IVSd: 1.25 0.6-0.9/0.6-1.0 cm LVIDd: 4.40 3.9-5.3/4.2-5.9 cm LVIDd Index: 2.56 2.4-3.2/2.2-3.1 cm/m2 LVIDs: 2.79 2.0-3.6 cm LVPWd: 1.30 0.7-1.1 cm LA Diam: 4.30 2.7-3.8/3.0-4.0 cm LAIDs Index: 2.50 1.5-2.3 cm/m2 LV Mass: 260.54 67-162/88-224 g LV Mass Index: 151.48 43-95/49-115 g/m2 LVOT Diam: 2.00 3.0+(-)1.3 cm 2D Systolic Function EF 4C: 43.00 >55% EF 2C: 50.50 >55% EF BiP: 45.20 >55% Mitral Valve MV Pk E: 1.01 MV PK A: 0.78 MV Decel Time: 253.00 E/A: 1.30 E'Lateral: 10.20 E'Medial: 6.20 E/E' Med: 16.30 E/E' Lat: 9.90 PHT: 74.00 MVA PHT: 2.97 Decel [place]: 3.99 Aortic Valve AoV Pk Ramin: 3.54 AoV Mn Ramin: 2.35 AoV VTI: 0.73 AoV Pk Grad: 50.00 Aov Mn Grad: 26.00 JENNIFER Cont.VTI: 0.89 LVOT LVOT Pk Ramin: 1.04 LVOT Mn Ramin: 0.64 LVOT VTI: 0.21 LVOT Pk Grad: 4.00 LVOT Mn Grad: 2.00 LVOT Diam: 2.00 LVOT Area: 3.14 Diastolic Function MV Pk E: 1.01 MV Pk A: 0.78 E/A: 1.30 E'Medial: 6.20 E/E' Med: 16.30 E' Laterial: 10.20 E/E' Lat: 9.90 Right Ventricle TAPSE (mm): 9.99 TVS' Ramin: 4.24 Tricuspid Valve TR Pk Ramin: 2.61 TR Pk Grad: 27.00 RA Press: 3.00 RVSP: 30.00 Great Vessels Aorta Ao Asc: 3.40 2.1-3.4 cm Updated in Other Vendor System with Status of Final oCrtez Hanson MD electronically signed on 02/12/2022 4:39:46 PM with status of Final
== END ==
LOC: HO.CARD 12:52
PROVIDERS: PCP Internal Medicine; Visit Provider Nurse Practitioner Family
DX: I25.10 Atherosclerotic heart disease of native coronary artery without angina pectoris (principal); R94.31 Abnormal electrocardiogram [ECG] [EKG]; Z95.1 Presence of aortocoronary bypass graft
CPT/HCPCS: 93306

== ENCOUNTER 2022-03-18 15:12 | Outpatient (REF) | payer BC, SELFPAY ==
[2022-03-18 15:45] LABS: Baso%MD 0.5 %; Eos%MD 1.4 %; Hematocrit 41.9 % (42.0-52.0); Hemoglobin 14.5 g/dl (14.0-18.0); IG%MD 0.5 %; Mean Corpuscular HGB Conc 34.6 g/dl (31.0-36.0); Mean Corpuscular Hemoglobin 31.3 pg (27.0-33.0); Mean Corpuscular Volume 90.5 fL (80.0-98.0); Mean Platelet Volume 8.7 fL (9.4-12.4); Mono%MD 12.9 %; Neut%MD 64.7 %; Platelet Count 264 X10*3/uL (160-400); Red Blood Count 4.63 X10*6/uL (4.60-5.80); Red Cell Distribution Width 12.6 % (11.0-16.0); White Blood Count 8.1 X10*3/uL (4.8-10.8)
[2022-03-18 16:10] LABS: Alanine Aminotransferase 32 U/L (0-40); Albumin Level 4.5 g/dL (3.5-5.0); Alkaline Phosphatase 95 U/L (39-117); Anion Gap 14 (12-20); Aspartate Amino Transferase 27 U/L (5-37); Bilirubin Total 0.9 mg/dL (0.0-1.0); Blood Urea Nitrogen 24 mg/dL (9-16); Calcium 9.6 mg/dL (8.4-10.2); Carbon Dioxide 25 mmol/L (22-29); Chloride 105 mmol/L (96-108); Cholesterol 115 mg/dL; Estimated Glomerular Filt Rate > 60; Glucose Random 95 mg/dL (60-115); HDL Cholesterol 47 mg/dL; LDL Cholesterol Calculated 59 mg/dl; Sodium 139 mmol/L (135-145); Triglycerides 47 mg/dL
[2022-03-18 16:26] LABS: Atypical Lymph Absolute Manual 0.2 x10*3/uL; Atypical Lymphs Percent Manual 2 % (0-6); Band Neutrophils Percent 0 % (3-5); Basophils Abs Manual 0.1 X10*3/uL (0.0-0.2); Basophils Percent Manual 1 % (0-2); Lymphocytes Percent Manual 25 % (20-40); Monocytes Absolute Manual 0.6 X10*3/uL (0.1-1.2); Monocytes Percent Manual 8 % (2-11); Neutrophils Absolute Manual 5.2 X10*3/uL (2.0-8.3); Neutrophils Percent Manual 64 % (45-73); RBC Morphology NORMAL
[2022-03-18 16:27] LABS: Acanthocytes 1+ (0-2) /OIF; Ovalocytes 1+ (5-14) /OIF; Platelet Estimate NORMAL (NORMAL); Platelet Morphology Comment NORMAL; Tear Drop Cells 1+ (0-2) /OIF
[2022-03-18 16:30] LABS: Prostate Specific Antigen 0.56 ng/mL (<0.05-4.0)
[2022-03-18 16:49] LABS: Appearance Urine Clear; Color Urine Yellow; Glucose Urine UA Negative (Negative); Leukocyte Esterase Urine Negative (Negative); Nitrite Urine Negative (Negative); PH 5.5 (5.0-8.0); Specific Gravity - Urine 1.025 (1.005-1.025); Urine Blood Negative (Negative); Urine Ketones Negative (Negative); Urine Protein Negative (Neg-Trace)
[2022-03-18 16:55] LABS: Bacteria Urine None Seen (None Seen); Hyaline Casts Urine 0-2 /LPF (0-2); RBC Urine 0-2 /HPF (0-2); Squamous Epithelial Cell Urine 0-2 /HPF (0-2); WBC Urine 0-5 /HPF (0-5)
== END 2022-03-18 15:13 | disposition home or self-care (01) ==
LOC: HO.LAB 15:12
PROVIDERS: PCP Internal Medicine; Visit Provider Internal Medicine
DX: Z00.00 Encounter for general adult medical examination without abnormal findings (principal); Z12.5 Encounter for screening for malignant neoplasm of prostate
CPT/HCPCS: 36415; 80053; 80061; 81001; 84153; 85007; 85027

== ENCOUNTER → 2022-07-23 14:12 | Outpatient (REF) | payer BC, SELFPAY ==
--- NOTE | 2022-07-23 14:15 | CA_ITS ---
Transthoracic Echocardiogram Patient (Last, First, Middle): Mathew Birch A Gender: Male Date of : 1955 Age: 67 Procedure Date: 07/23/2022 Procedure Type: Transthoracic Echocardiogram Location: OP Height: 165.1 cm Weight: 65.77 kg BSA: 1.73 m2 Heart Rate: bpm BP: 128 / 75 mmHg Him Clerk: BOLIVAR Referring MD: Elzbieta Kauffman SHELLACKER-C Assembler Lay Ups: Cortez Hanson MD Symptoms: Z95.2 - Presence of prosthetic heart valve Study Quality: Adequate ECG Rhythm: Sinus Conclusions: - 1. LV systolic function with LVEF of 55-60% measured by Harper's formula with pseudonormal filling pattern 2. Mildly dilated right ventricle with moderately reduced systolic function 3. Mild biatrial enlargement 4. Stenosis of bioprosthetic aortic valve mean gradient of 27 mmHg, unchanged from before, could represent patient prosthesis mismatch 5. Normal RV systolic pressure 6. No gross pericardial effusion Findings Left Ventricle Normal left ventricular size, thickness, systolic function, and wall motion. The visually estimated ejection fraction is between 55-60%. There is paradoxical septal motion consistent with post-operative status. Spectral Doppler is indicative of a pseudonormal filling pattern. Wall Motion Rest Echo Findings The apex, apical anterior, and apical septum segments are hypokinetic. All other scored wall segments showed normal motion. Right Ventricle Mildly increased right ventricular cavity size. There is moderately decreased right ventricular systolic function. Atria The left atrium is mildly dilated. Interatrial shunt cannot be excluded. The right atrium was not well visualized. Aortic Valve A bioprosthetic aortic valve is present. The mean gradient is 27 mmHg. to bioprosthetic valve is well-seated, leaflets are not well visualized. Mean gradient across the valve is 27 mmHg which is elevated but unchanged from before. Could represent patient prosthesis mismatch although suggestive overall stenosis of the bioprosthetic valve Mitral Valve There is mild anterior and posterior mitral leaflet thickening. There is mild mitral annular calcification. There is mild to moderate mitral valve regurgitation. There is no mitral valve stenosis. Pulmonic Valve The pulmonic valve was not well visualized. Tricuspid Valve Normal tricuspid valve structure. There is mild tricuspid valve regurgitation. The right ventricular systolic pressure is normal. The right ventricular systolic pressure is 33 mmHg. Normal right atrial pressure. There is no evidence of pulmonary hypertension. Great Vessels All visible segments of the aorta are normal in size. The pulmonary artery was not well visualized. Venous The inferior vena cava is normal in size and collapses greater than 50% with inspiration. Pericardium/Pleural There is no evidence of pericardial effusion. Prior Study Comparison Changes noted compared to prior study dated: 02/12/2022. LV systolic function has improved Measurements 2D Linear Measurements IVSd: 1.19 0.6-0.9/0.6-1.0 cm LVIDd: 4.54 3.9-5.3/4.2-5.9 cm LVIDd Index: 2.62 2.4-3.2/2.2-3.1 cm/m2 LVIDs: 3.14 2.0-3.6 cm LVPWd: 1.15 0.7-1.1 cm LA Diam: 4.20 2.7-3.8/3.0-4.0 cm LAIDs Index: 2.43 1.5-2.3 cm/m2 LV Mass: 241.37 67-162/88-224 g LV Mass Index: 139.52 43-95/49-115 g/m2 LVOT Diam: 2.00 3.0+(-)1.3 cm 2D Systolic Function EF 4C: 56.70 >55% EF 2C: 54.60 >55% EF BiP: 56.40 >55% Mitral Valve MV Pk E: 1.14 MV PK A: 0.83 MV Decel Time: 233.00 E/A: 1.40 E'Lateral: 12.60 E'Medial: 7.72 E/E' Med: 14.80 E/E' Lat: 9.00 PHT: 68.00 MVA PHT: 3.24 Decel [place]: 4.92 Aortic Valve AoV Pk Ramin: 3.41 AoV Mn Ramin: 2.46 AoV VTI: 0.83 AoV Pk Grad: 47.00 Aov Mn Grad: 27.00 JENNIFER Cont.VTI: 0.92 LVOT LVOT Pk Ramin: 0.95 LVOT Mn Ramin: 0.68 LVOT VTI: 0.24 LVOT Pk Grad: 4.00 LVOT Mn Grad: 2.00 LVOT Diam: 2.00 LVOT Area: 3.14 Diastolic Function MV Pk E: 1.14 MV Pk A: 0.83 E/A: 1.40 E'Medial: 7.72 E/E' Med: 14.80 E' Laterial: 12.60 E/E' Lat: 9.00 Right Ventricle TAPSE (mm): 12.20 TVS' Ramin: 6.09 Tricuspid Valve TR Pk Ramin: 2.73 TR Pk Grad: 30.00 RA Press: 3.00 RVSP: 33.00 Great Vessels Aorta Ao Asc: 3.30 2.1-3.4 cm Updated in Other Vendor System with Status of Final Cortez Hanson MD electronically signed on 07/24/2022 3:38:48 PM with status of Final
== END ==
LOC: HO.CARD 14:12
PROVIDERS: PCP Internal Medicine; Visit Provider Internal Medicine Cardiovascular Disease
DX: R93.1 Abnormal findings on diagnostic imaging of heart and coronary circulation (principal); Z95.1 Presence of aortocoronary bypass graft; Z95.2 Presence of prosthetic heart valve
CPT/HCPCS: 93306

== ENCOUNTER 2022-09-10 16:06 | Outpatient (REF) | payer BC, SELFPAY ==
[2022-09-10 16:24] LABS: MANUAL DIFF FLAG NO
[2022-09-10 18:04] LABS: Basophils Percent Auto 0.4 % (0-2); Eosinophils Absolute Auto 0.1 X10*3/uL (0.0-0.4); Eosinophils Percent Auto 1.9 % (0-4); Hematocrit 46.3 % (42.0-52.0); Hemoglobin 15.4 g/dl (14.0-18.0); Imm Gran Abs Auto 0.03 X10*3/uL (0.00-0.03); Imm Gran Pct Auto 0.4 % (0.0-0.4); Lymphocytes Absolute Auto 1.9 X10*3/uL (1.2-4.9); Lymphocytes Percent Auto 25.8 % (20-40); Mean Corpuscular HGB Conc 33.3 g/dl (31.0-36.0); Mean Corpuscular Hemoglobin 31.2 pg (27.0-33.0); Mean Corpuscular Volume 93.7 fL (80.0-98.0); Mean Platelet Volume 8.9 fL (9.4-12.4); Monocytes Absolute Auto 1.1 X10*3/uL (0.1-1.2); Monocytes Percent Auto 14.6 % (2-11); Neutrophils Absolute Auto 4.2 x10*3/uL (2.0-8.3); Neutrophils Percent Auto 56.9 % (45-73); Platelet Count 262 X10*3/uL (160-400); Red Blood Count 4.94 X10*6/uL (4.60-5.80); Red Cell Distribution Width 12.4 % (11.0-16.0); White Blood Count 7.4 X10*3/uL (4.8-10.8)
[2022-09-10 18:08] LABS: Alanine Aminotransferase 31 U/L (0-40); Albumin Level 4.7 g/dL (3.5-5.0); Alkaline Phosphatase 88 U/L (39-117); Anion Gap 16 (12-20); Aspartate Amino Transferase 27 U/L (5-37); Bilirubin Total 0.7 mg/dL (0.0-1.0); Blood Urea Nitrogen 41 mg/dL (9-16); Calcium 9.6 mg/dL (8.4-10.2); Carbon Dioxide 24 mmol/L (22-29); Chloride 106 mmol/L (96-108); Estimated Glomerular Filt Rate 59; Glucose Random 86 mg/dL (60-115); Potassium 5.1 mmol/L (3.3-5.1); Sodium 141 mmol/L (135-145); Total Protein 7.2 g/dL (6.5-8.0)
== END 2022-09-10 16:07 | disposition home or self-care (01) ==
LOC: HO.LAB 16:06
PROVIDERS: PCP Internal Medicine; Visit Provider Internal Medicine
DX: I25.10 Atherosclerotic heart disease of native coronary artery without angina pectoris (principal); I10 Essential (primary) hypertension; E78.00 Pure hypercholesterolemia, unspecified
CPT/HCPCS: 36415; 80053; 85025

== ENCOUNTER → 2023-01-06 13:45 | Outpatient (BNVA) | payer BC, SELFPAY | PROVIDERS: PCP Internal Medicine; Referring Provider Internal Medicine; Visit Provider Internal Medicine Cardiovascular Disease | DX: I25.10 Atherosclerotic heart disease of native coronary artery without angina pectoris (principal); I50.9 Heart failure, unspecified; Z95.2 Presence of prosthetic heart valve; Z95.1 Presence of aortocoronary bypass graft; Z79.899 Other long term (current) drug therapy | CPT/HCPCS: 93005 ==

== ENCOUNTER 2023-05-04 09:03 | Outpatient (REF) | payer BC, SELFPAY | END 2023-05-04 09:04 | disposition home or self-care (01) | LOC: HO.10HDL 09:03 | PROVIDERS: Visit Provider Internal Medicine | DX: I25.10 Atherosclerotic heart disease of native coronary artery without angina pectoris (principal); I10 Essential (primary) hypertension; E78.00 Pure hypercholesterolemia, unspecified; Z12.5 Encounter for screening for malignant neoplasm of prostate | CPT/HCPCS: 36415; 80053; 80061; 84153; 85025 ==

== ENCOUNTER 2023-07-12 13:06 | Outpatient (AMB) | payer BC, SELFPAY ==
[2023-07-12 13:15] VITALS: BP 110/70; PULSE 63; BMI 25.5
--- NOTE | 2023-07-12 13:15 | MHC.OFFVIS ---
Intake Vital Signs 07/12/23 13:15 Height 5 ft 5 in Weight 153 lb 0.013 oz BMI 25.5 BP 110/70 Blood Pressure Location Lt brachial Position Sitting Pulse 63 Pulse Source Pulse Oximeter Intake Visit Reasons: 6 mth f/up Intake Note: 6 mnth f/up pt its feeling fine. Cattery Operator Required: No Accompanied by: Spouse Allergies No Known Allergies Allergy (Verified 01/06/23 13:49) Medication List - Last Reconciled 07/12/23 by Luiz Ruiz MD amoxicillin 1,000 mg (2 x 500 mg) PO ONCE aspirin 81 mg PO DAILY atorvastatin 80 mg PO DAILY 90 days clopidogrel 75 mg PO DAILY 90 days ezetimibe 10 mg PO DAILY 90 days metoprolol succinate ER 25 mg PO DAILY 90 days spironolactone 25 mg PO DAILY 90 days valsartan 40 mg PO DAILY 90 days HPI HPI Comments History of Present Illness Details Pleasant 68-year-old gentleman here for follow-up. He was seen at [facility] when he presented with congestive heart failure and complained of exertional angina. His echocardiography showed concern for low-flow low gradient severe aortic valve stenosis with severely reduced ejection fraction. He was taken for left and right heart catheterization which showed severe multivessel disease along with low-flow low gradient severe . With these findings he was referred for bypass surgery and aortic valve replacement. He underwent surgery and had a bioprosthetic aortic valve. He has gone through recovery and rehab and is doing great. His repeat echocardiography has shown ejection fraction of 45-50% with inferior wall motion abnormality which is similar to before. Previously his ejection fraction was severely reduced. He also has a mean gradient 26 across the bioprosthetic aortic valve. There is some bioprosthetic valve dysfunction present. He continues to be clinically asymptomatic and has been active at work without any issues. He had repeat echocardiography in June 2022. His ejection fraction was 55-60% with some wall motion abnormalities. He had mean gradient of 27 mm Hg across the bioprosthetic valve at that time. He had a 23 mm Medtronic mosaic bioprosthetic valve which was used for AVR. He continues to be asymptomatic. He is working and has no functional limitations at this point. 07/12/2023: He returns for follow-up. He has been doing well. No chest discomfort shortness of breath. Taking medications regularly. No active concerns right now. FORMERLY [facility], 1928–1983 Medical History HTN (hypertension) Surgical History Status post cardiac catheterization S/P AVR S/P CABG x 4 Family History Mother Brain aneurysm Father Prostate cancer H/O heart bypass surgery Social History Household Members: Family Housing: House Alcohol intake: former Year quit: 2020 Patient Tobacco Use Status: Never used Tobacco Advance Directives Date on File: 01/17/21 service: No Current occupational status: employed [employer] Reports chills, Reports fatigue, Reports fever(s), Reports frequent falls, Reports weakness, Reports weight gain and Reports weight loss ENT Reports dizziness Card Reports chest pain, Reports leg edema, Reports lightheadedness, Reports palpitations, Reports dyspnea and Reports dyspnea on exertion Resp Reports cough, Reports dyspnea and Reports dyspnea on exertion GI Reports hematochezia Musc Reports abnormal gait, Reports muscle weakness, Reports numbness, Reports radiating pain into limb and Reports tingling Neuro Reports abnormal gait, Reports dizziness, Reports frequent falls, Reports numbness, Reports tingling and Reports weakness Endo Reports fatigue and Reports palpitations Physical Exam Vital Signs: Last Vital Signs Pulse 63 07/12/23 13:15 BP 110/70 07/12/23 13:15 BMI result Body Mass Index 25.5 GENERAL APPEARANCE: in no acute distress, pleasant. NECK: Right carotid endarterectomy scar,, no jugular venous distention. SKIN: Well-healed midline sternotomy scar. HEART: Systolic murmur aortic area radiating to the carotids, regular rate and rhythm. LUNGS: clear to auscultation bilaterally. ABDOMEN: soft, nontender. EXTREMITIES: no edema. PERIPHERAL PULSES: equal. NEUROLOGIC: No gross deficits, AAO X 3 Assessment & Plan Assessment & Plan (1) Prosthetic valve dysfunction: Code(s): T82.09XA - Other mechanical complication of heart valve prosthesis, initial encounter (2) S/P AVR: Comment: 01/29/21 23mm Mosiac Bioprosthetic AVR Code(s): Z95.2 - Presence of prosthetic heart valve (3) CAD (coronary artery disease): Code(s): I25.10 - Atherosclerotic heart disease of [place] coronary artery without angina pectoris (4) S/P CABG x 4: Comment: 01/29/2021 MANN to mid LAD, SVG to PDA, SVG to OM, left radial artery to diagonal Code(s): Z95.1 - Presence of aortocoronary bypass graft Plan Pleasant 68 gentleman with background of CABG AVR. He had severe cardiomyopathy with improvement ejection fraction back to normal. He has patient prosthesis mismatch with mean gradient across aortic valve of 27 mm Hg as of echocardiography from June 2022. Clinically has been stable and has no symptoms. Stable angina. Blood pressure is well controlled. We will repeat echocardiography to reassess the bioprosthetic valve. He will see us back in 4 months. Thank you for allowing me to participate in the care of your patient. Please feel free to contact me if you have any questions. Orders: Orders CA echo transthoracic complete Today T82.09XA - Other mechanical complication of heart valve prosthesis, initial encounter Coding Level of Care Code Est Pt Level 4 (24873) Diagnoses Prosthetic valve dysfunction T82.09XA S/P AVR Z95.2 CAD (coronary artery disease) I25.10 S/P CABG x 4 Z95.1
== END 2023-07-12 14:00 | disposition home or self-care (01) ==
PROVIDERS: PCP Internal Medicine; Visit Provider Internal Medicine Cardiovascular Disease
DX: T82.09XA Other mechanical complication of heart valve prosthesis, initial encounter (principal); Z95.2 Presence of prosthetic heart valve; I25.10 Atherosclerotic heart disease of native coronary artery without angina pectoris; Z95.1 Presence of aortocoronary bypass graft
CPT/HCPCS: 99214

== ENCOUNTER → 2023-07-12 13:06 | Outpatient (BNVA) | payer BC, SELFPAY | PROVIDERS: PCP Internal Medicine; Visit Provider Internal Medicine Cardiovascular Disease ==

== ENCOUNTER → 2023-08-17 12:40 | Outpatient (REF) | payer BC, SELFPAY ==
--- NOTE | 2023-08-17 12:45 | CA_ITS ---
Transthoracic Echocardiogram Patient (Last, First, Middle): Mathew Birch A Gender: Male Date of : 1955 Age: 68 Procedure Date: 08/17/2023 Procedure Type: Transthoracic Echocardiogram Location: OP Height: 165.1 cm Weight: 69.4 kg BSA: 1.77 m2 Heart Rate: 65 bpm BP: 110 / 70 mmHg Office Machine Punch Operator: SB Referring MD: Luiz Ruiz MD Reroller Hand: Luiz Ruiz MD Symptoms: T82.09XA - Other mechanical complication of heart valve prosthesis, init... Study Quality: Adequate ECG Rhythm: Sinus Conclusions: - Normal left ventricular size, thickness, systolic function, and wall motion. The visually estimated ejection fraction is between 55-60%. Abnormal diastolic function is noted. Spectral Doppler is indicative of a pseudonormal filling pattern. E/E prime ratio is >15, consistent with elevated filling pressures. - Normal right ventricular cavity size. There is mild to moderately decreased right ventricular systolic function. - A bioprosthetic aortic valve is present. Peak velocity across AV 331 cm/sec. DVI 0.31. Triangular contour of the jet. Patient prosthesis mismatch present. There is no aortic valve regurgitation. Findings Left Ventricle Normal left ventricular size, thickness, systolic function, and wall motion. The visually estimated ejection fraction is between 55-60%. Abnormal diastolic function is noted. Spectral Doppler is indicative of a pseudonormal filling pattern. E/E prime ratio is >15, consistent with elevated filling pressures. Right Ventricle Normal right ventricular cavity size. There is mild to moderately decreased right ventricular systolic function. Atria The left atrium is normal in size. The right atrium is mildly dilated. Aortic Valve A bioprosthetic aortic valve is present. Peak velocity across AV 331 cm/sec. DVI 0.31. Triangular contour of the jet. Patient prosthesis mismatch present. There is no aortic valve regurgitation. Mitral Valve The mitral valve appears normal. There is mild to moderate mitral valve regurgitation. There is no mitral valve stenosis. Pulmonic Valve Normal pulmonic valve structure and function. There is no pulmonic valve regurgitation. Tricuspid Valve Normal tricuspid valve structure. There is mild to moderate tricuspid valve regurgitation. Normal right atrial pressure. There is no evidence of pulmonary hypertension. Great Vessels All visible segments of the aorta are normal in size. The visualized portions of the pulmonary artery and branches are normal. Venous The inferior vena cava is normal in size and collapses greater than 50% with inspiration. Pericardium/Pleural There is no evidence of pericardial effusion. Prior Study Comparison No significant change compared to prior study dated: 07/23/2022. Measurements 2D Linear Measurements IVSd: 1.06 0.6-0.9/0.6-1.0 cm LVIDd: 5.09 3.9-5.3/4.2-5.9 cm LVIDd Index: 2.88 2.4-3.2/2.2-3.1 cm/m2 LVIDs: 3.31 2.0-3.6 cm LVPWd: 0.84 0.7-1.1 cm LA Diam: 4.70 2.7-3.8/3.0-4.0 cm LAIDs Index: 2.66 1.5-2.3 cm/m2 LV Mass: 218.05 67-162/88-224 g LV Mass Index: 123.19 43-95/49-115 g/m2 LVOT Diam: 2.20 3.0+(-)1.3 cm 2D Systolic Function EF 4C: 64.50 >55% Mitral Valve MV Pk E: 1.13 MV PK A: 0.86 MV Decel Time: 151.00 E/A: 1.30 E'Lateral: 6.74 E'Medial: 5.44 E/E' Med: 20.80 E/E' Lat: 16.80 PHT: 44.00 MVA PHT: 5.00 Decel [place]: 7.48 Aortic Valve AoV Pk Ramin: 2.92 AoV Mn Ramin: 2.08 AoV VTI: 0.65 AoV Pk Grad: 34.00 Aov Mn Grad: 20.00 JENNIFER Cont.VTI: 1.31 LVOT LVOT Pk Ramin: 0.97 LVOT Mn Ramin: 0.72 LVOT VTI: 0.23 LVOT Pk Grad: 4.00 LVOT Mn Grad: 2.00 LVOT Diam: 2.20 LVOT Area: 3.80 Diastolic Function MV Pk E: 1.13 MV Pk A: 0.86 E/A: 1.30 E'Medial: 5.44 E/E' Med: 20.80 E' Laterial: 6.74 E/E' Lat: 16.80 Right Ventricle TAPSE (mm): 9.00 TVS' Ramin: 5.17 Tricuspid Valve TR Pk Ramin: 2.52 TR Pk Grad: 25.00 RA Press: 3.00 RVSP: 28.00 Great Vessels Aorta Sinus of Valsalva: 3.20 2.0-3.5 cm Ao Asc: 3.40 2.1-3.4 cm Pulmonary Valve PV Pk Ramin: 0.81 Peak PV Grad: 3.00 Updated in Other Vendor System with Status of Final Luiz Ruiz MD electronically signed on 08/17/2023 6:57:19 PM with status of Final
== END ==
LOC: HO.CARD 12:40
PROVIDERS: PCP Internal Medicine; Visit Provider Internal Medicine Cardiovascular Disease
DX: T82.09XA Other mechanical complication of heart valve prosthesis, initial encounter (principal)
CPT/HCPCS: 93306

== ENCOUNTER → 2023-08-17 12:45 | Outpatient (BNV) | payer BC, SELFPAY | PROVIDERS: PCP Internal Medicine; Visit Provider Internal Medicine Cardiovascular Disease | DX: T82.09XA Other mechanical complication of heart valve prosthesis, initial encounter (principal); I34.0 Nonrheumatic mitral (valve) insufficiency; I36.1 Nonrheumatic tricuspid (valve) insufficiency | CPT/HCPCS: 93306 ==

== ENCOUNTER 2023-11-02 12:33 | Outpatient (AMB) | payer BC, SELFPAY ==
[2023-11-02 12:58] VITALS: BP 190/84; PULSE 78; BMI 25.2
--- NOTE | 2023-11-02 12:58 | A.OFFVIS_ITS ---
Intake Vital Signs 11/02/23 12:58 Height 5 ft 5 in Weight 151 lb 10.848 oz BMI 25.2 BP 190/84 H Pulse 78 Intake Visit Reasons: 4 month follow up Allergies No Known Allergies Allergy (Verified 11/02/23 12:59) Medication List - Last Reconciled 11/02/23 by Elzbieta Kauffman, KAY-C aspirin 81 mg PO DAILY atorvastatin 80 mg PO DAILY 90 days clopidogrel 75 mg PO DAILY 90 days ezetimibe 10 mg PO DAILY 90 days metoprolol succinate ER 25 mg PO DAILY 90 days spironolactone 25 mg PO DAILY 90 days valsartan 40 mg PO DAILY 90 days HPI 4 month follow up HPI Details Mathew is a 68-year-old male past medical history of hypertension, hyperlipidemia, coronary artery disease, aortic stenosis status post 4 vessel coronary artery bypass grafting and bioprosthetic AVR with patient prosthesis mismatch who presents for follow-up after recent echocardiogram. Today he reports that he has been feeling generally well. He does mentioned that he has been under a lot of stress. No chest discomfort at rest or with activity. No concerning shortness of breath, palpitations, lightheadedness, presyncope, syncope, falls. No PND, orthopnea or edema. His blood pressure has been elevated and his PCP increased his valsartan for a few days then put him back to his usual 40 mg daily. is present. [facility] Medical History (Updated 11/02/23 @ 17:11 by Elzbieta Kauffman, KAY-C) Carotid stenosis CAD (coronary artery disease) Severe aortic stenosis HTN (hypertension) Surgical History Status post cardiac catheterization S/P AVR S/P CABG x 4 Family History Mother Brain aneurysm Father Prostate cancer H/O heart bypass surgery Social History Household Members: Family Housing: House Alcohol intake: former Year quit: 2020 Patient Tobacco Use Status: Never used Tobacco Advance Directives Date on File: 01/17/21 service: No Current occupational status: employed Review of Systems Const All systems reviewed & are unremarkable except as noted in HPI and below ENT Denies dizziness Card Denies chest pain, Denies chest pain at rest, Denies chest pain with activity, Denies rapid heart rate, Denies pedal edema, Denies edema, Denies leg edema, Denies lightheadedness, Denies palpitations, Denies dyspnea, Denies dyspnea on exertion and Denies orthopnea Resp Denies cough, Denies dyspnea and Denies dyspnea on exertion GI Denies hematochezia and Denies change in stool character Musc Denies abnormal gait, Denies limited range of motion, Denies muscle cramps, Denies muscle weakness, Denies numbness, Denies radiating pain into limb, Denies stiffness and Denies tingling Neuro Denies abnormal gait, Denies dizziness, Denies numbness and Denies tingling Endo Denies palpitations Physical Exam Vital Signs: Last Vital Signs Pulse 78 11/02/23 12:58 BP 190/84 H 11/02/23 12:58 BMI result Body Mass Index 25.2 Const General: cooperative, healthy appearing, comfortable and no acute distress Orientation/consciousness: patient oriented x3 Neck Neck: Yes normal visual inspection and Yes no JVD Resp Effort & Inspection: normal respiratory effort Auscultation: clear to auscultation bilaterally, no crackles, no rales, no rhonchi and no wheezes Cardio Jugular venous distension: no JVD Rate: regular rate Rhythm: regular rhythm Heart sounds: S1 normal heart sound present, S2 normal heart sound present, no murmurs and no rubs Skin General skin exam: no rashes or lesions noted Neuro General: patient oriented x3 Extrem General: Yes normal to inspection, No no pedal edema and No calf tenderness Psych Appearance: grossly normal Mental Status: mental status grossly normal Speech and movement: Normal speech and movement present Assessment & Plan Assessment & Plan (1) CAD (coronary artery disease): Code(s): I25.10 - Atherosclerotic heart disease of [place] coronary artery without angina pectoris Plan: He presented to [facility] in 12/2020 with chest discomfort and shortness of breath. EKG and troponin abnormal. Echo with reduced EF, low flow severe . Transferred to [facility] and had cardiac catheterization showing multi-vessel coronary artery disease. He was referred to [facility] and underwent a four-vessel coronary artery bypass grafting and bioprosthetic aortic valve replacement on 01/29/2021. Follow-up echocardiograms have shown evidence of patient prosthesis mismatch. Last echocardiogram done 08/17/2023 shows EF 55-60%, [id number] decrease in the RV systolic function, bioprosthetic aortic valve with mean gradient 20 mmHg, aortic valve area 1.31 cm sq, no significant change from echo 07/23/2022. Today he reports good activity tolerance with no significant symptoms. 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 Echo results reviewed with him in detail.. On exam he does have a systolic murmur, 2/6. Will plan for repeat echo in 1 year. Continue current med management with aspirin indefinitely. Continue Plavix at present. Will check with his primary pier worker regarding need for ongoing dual antiplatelet therapy. Continue metoprolol, valsartan, atorvastatin. [place] LDL goal less than 70. Labs done on 05/04/2023 showed LDL 59. Labs done today shows creatinine 0.82. Signs and symptoms of angina reviewed with him. (2) S/P CABG x 4: Comment: 01/29/2021 MANN to mid LAD, SVG to PDA, SVG to OM, left radial artery to diagonal Code(s): Z95.1 - Presence of aortocoronary bypass graft Plan: As above (3) HTN (hypertension): Code(s): I10 - Essential (primary) hypertension Plan: History of hypertension. [place] blood pressure goal less than 130/85. His blood pressure has been elevated recently. He says his valsartan was temporarily increased and he is now back to his usual 40 mg daily. Blood pressure very elevated in the office today, asymptomatic. Will have him increase valsartan to 80 mg daily. He will purchase a blood pressure cuff today and monitor blood pressure readings. He will take an additional 40 mg of valsartan when he gets. He plans to go to work this evening. Instructe to check blood pressure prior to going to work. If remains elevated with systolic greater than 1 50 then instructed to take an extra metoprolol XL this evening. Plan to call him in 2-3 days to check on home blood pressure readings. May need further med titration. Cardiology follow-up in 4-6 weeks for re-evaluation (4) S/P AVR: Comment: 01/29/21 23mm Mosiac Bioprosthetic AVR Code(s): Z95.2 - Presence of prosthetic heart valve Plan: Status post bioprosthetic AVR. Patient prosthesis mismatch as above. Stable and asymptomatic. (5) Carotid stenosis: Code(s): I65.29 - Occlusion and stenosis of unspecified carotid artery Plan: CT angio of the neck done at [facility] on 01/22/2021 shows moderate stenosis of the proximal left ICA, severe stenosis of the right carotid bulb and proximal right ICA. Since then he has [place] right carotid [place] [facility] [place] un[place]ful. No bruit on exam today. Will continue on aspirin, Plavix, atorvastatin. (6) Status post cardiac catheterization: Comment: 01/20/21 multi-vessel CAD Code(s): Z98.890 - Other specified postprocedural states Plan: As above Medications: New valsartan dose increased 80 mg PO DAILY 90 tabs 1RF Discontinued valsartan Discontinued Reason: Doctor's Order 40 mg PO DAILY 90 days 90 tabs 2RF Patient Instructions: Time spent on chart review, documentation, interview and assessment Coding Level of Care Code Est Pt Level 4 (57559) Diagnoses CAD (coronary artery disease) I25.10 S/P CABG x 4 Z95.1 HTN (hypertension) I10 S/P AVR Z95.2 Carotid stenosis I65.29 Status post cardiac catheterization Z98.890 Time Spent (min) 28
== END 2023-11-02 13:41 | disposition home or self-care (01) ==
PROVIDERS: PCP Internal Medicine; Visit Provider Nurse Practitioner Family
DX: I25.10 Atherosclerotic heart disease of native coronary artery without angina pectoris (principal); Z95.1 Presence of aortocoronary bypass graft; I10 Essential (primary) hypertension; Z95.2 Presence of prosthetic heart valve; I65.29 Occlusion and stenosis of unspecified carotid artery; Z98.890 Other specified postprocedural states
CPT/HCPCS: 99214

== ENCOUNTER 2023-11-02 12:33 | Outpatient (REF) | payer BC, SELFPAY ==
[2023-11-02 13:43] LABS: MANUAL DIFF FLAG NO
[2023-11-02 13:58] LABS: Basophils Percent Auto 0.4 % (0-2); Eosinophils Absolute Auto 0.1 X10*3/uL (0.0-0.4); Hematocrit 45.2 % (42.0-52.0); Hemoglobin 15.4 g/dl (14.0-18.0); Imm Gran Abs Auto 0.02 X10*3/uL (0.00-0.03); Imm Gran Pct Auto 0.3 % (0.0-0.4); Lymphocytes Absolute Auto 1.5 X10*3/uL (1.2-4.9); Lymphocytes Percent Auto 22.8 % (20-40); Mean Corpuscular HGB Conc 34.1 g/dl (31.0-36.0); Mean Corpuscular Hemoglobin 31.5 pg (27.0-33.0); Mean Corpuscular Volume 92.4 fL (80.0-98.0); Mean Platelet Volume 8.6 fL (9.4-12.4); Neutrophils Absolute Auto 4.1 x10*3/uL (2.0-8.3); Neutrophils Percent Auto 60.5 % (45-73); Platelet Count 236 X10*3/uL (160-400); Red Blood Count 4.89 X10*6/uL (4.60-5.80); Red Cell Distribution Width 12.4 % (11.0-16.0); White Blood Count 6.7 X10*3/uL (4.8-10.8)
[2023-11-02 14:20] LABS: Alanine Aminotransferase 32 U/L (0-40); Albumin Level 4.4 g/dL (3.5-5.0); Alkaline Phosphatase 98 U/L (39-117); Anion Gap 14 (12-20); Aspartate Amino Transferase 26 U/L (5-37); Bilirubin Total 0.6 mg/dL (0.0-1.0); Blood Urea Nitrogen 19 mg/dL (9-16); Calcium 9.8 mg/dL (8.4-10.2); Carbon Dioxide 27 mmol/L (22-29); Chloride 105 mmol/L (96-108); Estimated Glomerular Filt Rate > 60; Glucose Random 100 mg/dL (60-115); Potassium 4.5 mmol/L (3.3-5.1); Sodium 141 mmol/L (135-145); Total Protein 7.4 g/dL (6.5-8.0)
== END 2023-11-02 12:34 | disposition home or self-care (01) ==
LOC: HO.LAB 12:33
PROVIDERS: Absent Provider Internal Medicine; PCP Internal Medicine; Visit Provider Nurse Practitioner Family
DX: I10 Essential (primary) hypertension (principal); I25.10 Atherosclerotic heart disease of native coronary artery without angina pectoris
CPT/HCPCS: 36415; 80053; 85025

== ENCOUNTER 2023-12-07 14:53 | Outpatient (AMB) | payer BC, SELFPAY ==
[2023-12-07 14:54] VITALS: BP 140/82; PULSE 80; BMI 25.5
--- NOTE | 2023-12-07 14:54 | A.OFFVIS_ITS ---
Vital Signs 12/07/23 14:54 Height 5 ft 5 in Weight 153 lb 7.068 oz BMI 25.5 BP 140/82 H Blood Pressure Location Lt brachial Position Sitting Pulse 80 Pulse Source Pulse Oximeter Intake Visit Reasons: 5 wk f/up Railroad Signal Technician Required: No Veterinary Technician: Veterinary Technician Present Allergies No Known Allergies Allergy (Verified 12/07/23 14:56) Medication List - Last Reconciled 12/07/23 by Elzbieta Kauffman NP-C aspirin 81 mg PO DAILY atorvastatin 80 mg PO DAILY 90 days clopidogrel 75 mg PO DAILY 90 days ezetimibe 10 mg PO DAILY 90 days metoprolol succinate ER 25 mg PO DAILY 90 days spironolactone 25 mg PO DAILY 90 days valsartan 80 mg PO DAILY HPI HPI 5 wk f/up: Details: Mathew is a 68-year-old male past medical history of hypertension, hyperlipidemia, coronary artery disease, aortic stenosis status post 4 vessel coronary artery bypass grafting and bioprosthetic AVR with patient prosthesis mismatch who presents for follow-up. Today he reports that he has been feeling well. No chest discomfort at rest or with activity. No concerning shortness of breath, palpitations, lightheadedness, presyncope, syncope, falls. No PND, orthopnea or edema. His blood pressure has been elevated around time of last visit and his valsartan dose was increased. Today he reports that home blood pressures have ranged 120- 130 systolic. He has a new blood pressure cuff and states he compared it to his old cuff and they were matching. is present. [facility] Medical History Carotid stenosis CAD (coronary artery disease) Severe aortic stenosis HTN (hypertension) Surgical History Status post cardiac catheterization S/P AVR S/P CABG x 4 Family History Mother Brain aneurysm Father Prostate cancer H/O heart bypass surgery Social History Household Members: Family Housing: House Alcohol intake: former Year quit: 2020 Patient Tobacco Use Status: Never used Tobacco Advance Directives Date on File: 01/17/21 service: No Current occupational status: employed Review of Systems Const All systems reviewed & are unremarkable except as noted in HPI and below ENT Denies dizziness Card Denies chest pain, Denies chest pain at rest, Denies chest pain with activity, Denies rapid heart rate, Denies pedal edema, Denies edema, Denies leg edema, Denies lightheadedness, Denies palpitations, Denies dyspnea, Denies dyspnea on exertion and Denies orthopnea Resp Denies cough, Denies dyspnea and Denies dyspnea on exertion GI Denies hematochezia and Denies change in stool character Musc Denies abnormal gait, Denies limited range of motion, Denies muscle cramps, Denies muscle weakness, Denies numbness, Denies radiating pain into limb, Denies stiffness and Denies tingling Neuro Denies abnormal gait, Denies dizziness, Denies numbness and Denies tingling Endo Denies palpitations Physical Exam Vital Signs: Last Vital Signs Pulse 80 12/07/23 14:54 BP 140/82 H 12/07/23 14:54 BMI result Body Mass Index 25.5 Const General: cooperative, healthy appearing, comfortable and no acute distress Orientation/consciousness: patient oriented x3 Neck Neck: Yes normal visual inspection and Yes no JVD Resp Effort & Inspection: normal respiratory effort Auscultation: clear to auscultation bilaterally, no crackles, no rales, no rhonchi and no wheezes Cardio Jugular venous distension: no JVD Rate: regular rate Rhythm: regular rhythm Heart sounds: S1 normal heart sound present, S2 normal heart sound present, no murmurs and no rubs Neuro General: patient oriented x3 Extrem General: Yes normal to inspection and No no pedal edema Psych Appearance: grossly normal Mental Status: mental status grossly normal Speech and movement: Normal speech and movement present Assessment & Plan Assessment & Plan (1) HTN (hypertension): Code(s): I10 - Essential (primary) hypertension Category: Medical Plan: History of hypertension. [place] blood pressure goal less than 130/85. His blood pressure has been elevated around time of last visit. Increased valsartan to 80 mg daily. He has been monitoring home blood pressures since then. He tells me his systolic is running 120-130. He has compared his new blood pressure cuff with an old blood pressure cuff and reports the readings are the same. Blood pressure is mildly elevated at this time. present states that patient has white coat syndrome. Will have him continue on losartan. Reviewed low-salt diet, stress reduction activities, physical activity as tolerated. Cardiology follow-up in 6 months, sooner if needed (2) CAD (coronary artery disease): Code(s): I25.10 - Atherosclerotic heart disease of [place] coronary artery without angina pectoris Category: Medical Plan: He presented to [facility] in 12/2020 with chest discomfort and shortness of breath. EKG and troponin abnormal. Echo with reduced EF, low flow severe . Transferred to [facility] and had cardiac catheterization showing multi-vessel coronary artery disease. He was referred to [facility] and underwent a four-vessel coronary artery bypass grafting and bioprosthetic aortic valve replacement on 01/29/2021. Follow-up echocardiograms have shown evidence of patient prosthesis mismatch. Last echocardiogram done 08/17/2023 shows EF 55-60%, [id number] decrease in the RV systolic function, bioprosthetic aortic valve with mean gradient 20 mmHg, aortic valve area 1.31 cm sq, no significant change from echo 07/23/2022. Today he reports good activity tolerance with no significant symptoms. 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 On exam he does have a systolic murmur, 2/6. Will plan for repeat echo in 1 year. Continue current med management with aspirin indefinitely. Continue Plavix at present. Will check with his primary incident handler regarding need for ongoing dual antiplatelet therapy. Continue metoprolol, valsartan, atorvastatin. [place] LDL goal less than 70. Labs done on 05/04/2023 showed LDL 59. Labs done 11/01 shows creatinine 0.82. Signs and symptoms of angina reviewed with him. (3) S/P CABG x 4: Comment: 01/29/2021 MANN to mid LAD, SVG to PDA, SVG to OM, left radial artery to diagonal Code(s): Z95.1 - Presence of aortocoronary bypass graft Category: Surgical Plan: As above (4) S/P AVR: Comment: 01/29/21 23mm Mosiac Bioprosthetic AVR Code(s): Z95.2 - Presence of prosthetic heart valve Category: Surgical Plan: Status post bioprosthetic AVR. Patient prosthesis mismatch as above. Stable and asymptomatic. (5) Carotid stenosis: Code(s): I65.29 - Occlusion and stenosis of unspecified carotid artery Category: Medical Plan: CT angio of the neck done at [facility] on 01/22/2021 shows moderate stenosis of the proximal left ICA, severe stenosis of the right carotid bulb and proximal right ICA. Since then he has undergone a right carotid endarterectomy at [facility] which was uneventful. No bruit on exam today. Will continue on aspirin, Plavix, atorvastatin. (6) Status post cardiac catheterization: Comment: 01/20/21 multi-vessel CAD Code(s): Z98.890 - Other specified postprocedural states Category: Surgical Plan: As above Plan Time spent on chart review, documentation, assessment, interview Coding Level of Care Code Est Pt Level 3 (10886) Diagnoses HTN (hypertension) I10 CAD (coronary artery disease) I25.10 S/P CABG x 4 Z95.1 S/P AVR Z95.2 Carotid stenosis I65.29 Status post cardiac catheterization Z98.890 Time Spent (min) 24
== END 2023-12-07 15:44 | disposition home or self-care (01) ==
PROVIDERS: PCP Internal Medicine; Visit Provider Nurse Practitioner Family
DX: I10 Essential (primary) hypertension (principal); I25.10 Atherosclerotic heart disease of native coronary artery without angina pectoris; Z95.1 Presence of aortocoronary bypass graft; Z95.2 Presence of prosthetic heart valve; I65.29 Occlusion and stenosis of unspecified carotid artery; Z98.890 Other specified postprocedural states
CPT/HCPCS: 99213

== ENCOUNTER → 2023-12-07 14:53 | Outpatient (BNVA) | payer BC, SELFPAY | PROVIDERS: PCP Internal Medicine; Visit Provider Nurse Practitioner Family ==

== ENCOUNTER 2023-12-14 09:34 | Outpatient (REF) | payer BC, SELFPAY ==
[2023-12-14 11:45] LABS: Cholesterol 107 mg/dL (<200); HDL Cholesterol 46 mg/dL (>40); LDL Cholesterol Calculated 49 mg/dL (<100); Triglycerides 63 mg/dL (<150)
== END 2023-12-14 09:35 | disposition home or self-care (01) ==
LOC: HO.LAB 09:34
PROVIDERS: PCP Internal Medicine; Visit Provider Nurse Practitioner Family
DX: I65.29 Occlusion and stenosis of unspecified carotid artery (principal)
CPT/HCPCS: 36415; 80061

== ENCOUNTER 2024-06-08 13:57 | Outpatient (AMB) | payer BC, SELFPAY ==
[2024-06-08 14:06] VITALS: BP 160/82; PULSE 66; BMI 25.8
--- NOTE | 2024-06-08 14:06 | MHC.OFFVIS ---
Vital Signs 06/08/24 14:06 Height 5 ft 5 in Weight 154 lb 12.232 oz BMI 25.8 BP 160/82 H Blood Pressure Location Rt brachial Position Sitting Pulse 66 Pulse Source Monitor Intake Visit Reasons: 6m follow up Visual Merchandising Specialist Required: No Allergies No Known Allergies Allergy (Verified 06/08/24 14:07) Medication List - Last Reconciled 06/08/24 by Elzbieta Kauffman NP-C aspirin 81 mg PO DAILY atorvastatin 80 mg PO DAILY 90 days clopidogrel 75 mg PO DAILY 90 days ezetimibe 10 mg PO DAILY 90 days metoprolol succinate ER 25 mg PO DAILY 90 days spironolactone 25 mg PO DAILY 90 days valsartan 40 mg PO DAILY HPI HPI 6m follow up: Details: Mathew is a 68-year-old male past medical history of hypertension, hyperlipidemia, coronary artery disease, aortic stenosis status post 4 vessel coronary artery bypass grafting and bioprosthetic AVR with patient prosthesis mismatch who presents for follow-up. Today he reports that he continues to feel very well. No chest discomfort at rest or with activity. No concerning shortness of breath, PND, orthopnea or edema. No palpitations, lightheadedness, presyncope, syncope, falls. His blood pressure at home has been running 120s systolic. He reports having elevated blood pressures in the office due to feeling anxious. He has been compliant with his medications. He has a newer blood pressure cuff and states he compared it to his old cuff and they were matching. 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 [facility] Medical History Carotid stenosis CAD (coronary artery disease) Severe aortic stenosis HTN (hypertension) Surgical History Status post cardiac catheterization S/P AVR S/P CABG x 4 Family History Mother Brain aneurysm Father Prostate cancer H/O heart bypass surgery Social History Household Members: Family Housing: House Alcohol intake: former Year quit: 2020 Patient Tobacco Use Status: Never used Tobacco Advance Directives Date on File: 06/25/21 service: No Current occupational status: employed Review of Systems Const All systems reviewed & are unremarkable except as noted in HPI and below ENT Denies dizziness Card Denies chest pain, Denies chest pain at rest, Denies chest pain with activity, Denies rapid heart rate, Denies pedal edema, Denies edema, Denies leg edema, Denies lightheadedness, Denies palpitations, Denies dyspnea, Denies dyspnea on exertion and Denies orthopnea Resp Denies cough, Denies dyspnea and Denies dyspnea on exertion GI Denies hematochezia and Denies change in stool character Musc Denies abnormal gait, Denies limited range of motion, Denies muscle cramps, Denies muscle weakness, Denies numbness, Denies radiating pain into limb, Denies stiffness and Denies tingling Neuro Denies abnormal gait, Denies dizziness, Denies numbness and Denies tingling Endo Denies palpitations Physical Exam Vital Signs: Last Vital Signs Pulse 66 06/08/24 14:06 BP 160/82 H 06/08/24 14:06 BMI result Body Mass Index 25.8 Const General: cooperative, healthy appearing, comfortable and no acute distress Orientation/consciousness: patient oriented x3 Neck Neck: Yes normal visual inspection and Yes no JVD Resp Effort & Inspection: normal respiratory effort Auscultation: clear to auscultation bilaterally, no crackles, no rales, no rhonchi and no wheezes Cardio Jugular venous distension: no JVD Rate: regular rate Rhythm: regular rhythm Heart sounds: S1 normal heart sound present, S2 normal heart sound present, Murmur heart sound present (3/6 systolic murmur right sternal border) and no rubs Neuro General: patient oriented x3 Extrem General: Yes normal to inspection and No no pedal edema Psych Appearance: grossly normal Mental Status: mental status grossly normal Speech and movement: Normal speech and movement present Office Procedures EKG Details: Today, read by me, sinus rhythm with first-degree AV block, septal infarct, lateral infarct, rate 66, QTC 410 milliseconds [id number], Complete Assessment & Plan Assessment & Plan (1) HTN (hypertension): Code(s): I10 - Essential (primary) hypertension Category: Medical Plan: History of hypertension. [place] blood pressure goal less than 130/85. His blood pressure has been elevated in the offices. He reports that his home blood pressures range systolic 120s. His valsartan dose was previously increased and then he reported lightheadedness. On exam today his blood pressure is elevated. On last visit reported that patient has white coat syndrome. Will have him continue valsartan, spironolactone, metoprolol. Discussed reduction of salt in his diet. He admits to eating a lot of fast food recently. Instructed to bring his home blood pressure cuff to his next office visit so that it can be checked with a manual reading. Cardiology follow-up in our office 6 months, sooner if needed (2) CAD (coronary artery disease): Code(s): I25.10 - Atherosclerotic heart disease of [place] coronary artery without angina pectoris Category: Medical Plan: He presented to [facility] in 12/2020 with chest discomfort and shortness of breath. EKG and troponin abnormal. Echo with reduced EF, low flow severe . Transferred to [facility] and had cardiac catheterization showing multi-vessel coronary artery disease. He then underwent a four-vessel coronary artery bypass grafting and bioprosthetic aortic valve replacement on 01/29/2021. Follow-up echocardiograms have shown evidence of patient prosthesis mismatch. Last echocardiogram done 08/17/2023 shows EF 55-60%, [id number] decrease in the RV systolic function, bioprosthetic aortic valve with mean gradient 20 mmHg, aortic valve area 1.31 cm sq, no significant change from echo 07/23/2022. Today he reports good activity tolerance with no significant symptoms. 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 On exam he does have a systolic murmur, /. Will plan for repeat echo 1 year from last. Continue current med management. Last visit we stopped aspirin and continued Plavix. Continue metoprolol, valsartan, atorvastatin. [place] LDL goal less than 70. Labs done on 12/14/2023 showed LDL 49. Labs done 11/02/23 shows creatinine 0.82. Signs and symptoms of angina reviewed with him. (3) S/P CABG x 4: Comment: 01/29/2021 MANN to mid LAD, SVG to PDA, SVG to OM, left radial artery to diagonal Code(s): Z95.1 - Presence of aortocoronary bypass graft Category: Surgical Plan: As above (4) S/P AVR: Comment: 01/29/21 23mm Mosiac Bioprosthetic AVR Code(s): Z95.2 - Presence of prosthetic heart valve Category: Surgical Plan: Status post bioprosthetic AVR. Patient prosthesis mismatch as above. Stable and asymptomatic. Echo due July 2024 (5) Carotid stenosis: Code(s): I65.29 - Occlusion and stenosis of unspecified carotid artery Category: Medical Plan: CT angio of the neck done at [facility] on 01/22/2021 shows moderate stenosis of the proximal left ICA, severe stenosis of the right carotid bulb and proximal right ICA. Since then he has undergone a right carotid endarterectomy at [facility] which was uneventful. No bruit on exam today. Will continue on Plavix, atorvastatin. (6) Status post cardiac catheterization: Comment: 01/20/21 multi-vessel CAD Code(s): Z98.890 - Other specified postprocedural states Category: Surgical Plan: As above (7) Abnormal echocardiography: Code(s): R93.1 - Abnormal findings on diagnostic imaging of heart and coronary circulation Category: Medical Plan: As above Plan Time spent on chart review, documentation, assessment, interview Orders: Orders CA echo transthoracic complete 08/17/24 R93.1 - Abnormal findings on diagnostic imaging of heart and coronary circulation, Z95.2 - Presence of prosthetic heart valve Coding Level of Care Code Est Pt Level 4 (28721) Complex EM visit Add On G2211 Diagnoses HTN (hypertension) I10 CAD (coronary artery disease) I25.10 S/P CABG x 4 Z95.1 S/P AVR Z95.2 Carotid stenosis I65.29 Status post cardiac catheterization Z98.890 Abnormal echocardiography R93.1 CPT Codes EKG - CPT: 63126-Xxhtryynjhzwelben, Complete ([id number]) Time Spent (min) 28
== END 2024-06-08 14:42 | disposition home or self-care (01) ==
PROVIDERS: PCP Internal Medicine; Visit Provider Nurse Practitioner Family
DX: R94.31 Abnormal electrocardiogram [ECG] [EKG] (principal)
CPT/HCPCS: 93010; 99214

== ENCOUNTER → 2024-06-08 13:57 | Outpatient (BNVA) | payer BC, SELFPAY | PROVIDERS: PCP Internal Medicine; Visit Provider Nurse Practitioner Family | DX: I10 Essential (primary) hypertension (principal); I25.10 Atherosclerotic heart disease of native coronary artery without angina pectoris; I65.23 Occlusion and stenosis of bilateral carotid arteries; R93.1 Abnormal findings on diagnostic imaging of heart and coronary circulation; Z95.1 Presence of aortocoronary bypass graft; Z95.2 Presence of prosthetic heart valve; Z79.899 Other long term (current) drug therapy | CPT/HCPCS: 93005 ==

== ENCOUNTER 2024-07-11 07:53 | Day surgery (SDC) | payer BC, SELFPAY ==
[2024-07-07 11:21] VITALS: BMI 26.3
--- NOTE | 2024-07-10 09:38 | P.CONAN_ITS ---
HPI - Anesthesia Eval Consult details Narrative: 69yo M for Colonoscopy 2020 s/p CABG x 4 and AVR. Follows [facility] [place]. Last office visit 05/2024 with reports of feeling well and good activity tolerance [facility] Active Problems Active Problems: All Active Problems Prosthetic valve dysfunction (Acute) Abnormal echocardiography (Acute) Abnormal EKG (Acute) HTN (hypertension) (Acute) Carotid stenosis (Acute) Status post cardiac catheterization (Acute) Severe aortic stenosis (Acute) S/P AVR (Acute) CAD (coronary artery disease) (Acute) S/P CABG x 4 (Acute) Past Medical History Medical History Pulmonary hypertension Carotid stenosis CAD (coronary artery disease) Severe aortic stenosis HTN (hypertension) Family History Family History Mother Brain aneurysm Father Prostate cancer H/O heart bypass surgery Surgical History Surgical History History of right-sided carotid endarterectomy Status post cardiac catheterization S/P AVR S/P CABG x 4 Social History Social History Household Members: Family Housing: House Are you a primary residential care facility manager to a significant other at home: No Do you presently have visiting nurse or other home services: No Alcohol intake: former Year quit: 2020 Patient Tobacco Use Status: Never used Tobacco Use of substances other than those prescribed or required for medical reasons: No Have you been hit, kicked, punched, or otherwise hurt by someone within the past year? If so, by whom?: No Advance Directives: No Advance Directives Information Provided: Yes Advance Directives Date on File: 01/17/21 Recently lost weight without trying: No Nutrition Risks: No Nutritional Risk Poor oral hygiene: No service: No Current occupational status: employed Meds Allergies Allergy/AdvReac Type Severity Reaction Status Date / Time No Known Allergies Allergy Verified 07/11/24 08:21 Home Medications ?Medication ?Instructions ?Recorded ?Confirmed ?Last Taken ?Type aspirin 81 mg tablet,delayed 81 mg PO DAILY 06/08/24 07/07/24 07/05/24 History release Exam Height,Weight and Vital Signs: Height 5 ft 5 in Weight 71.668 kg Narrative Narrative: EKG 05/2024 EKG Details: Today, read by me, sinus rhythm with first-degree AV block, septal infarct, lateral infarct, rate 66, QTC 410 milliseconds ECHO 07/2023 Conclusions: - Normal left ventricular size, thickness, systolic function, and wall motion. The visually estimated ejection fraction is between 55-60%. Abnormal diastolic function is noted. Spectral Doppler is indicative of a pseudonormal filling pattern. E/E prime ratio is >15, consistent with elevated filling pressures. - Normal right ventricular cavity size. There is mild to moderately decreased right ventricular systolic function. - A bioprosthetic aortic valve is present. Peak velocity across AV 331 cm/sec. DVI 0.31. Triangular contour of the jet. Patient prosthesis mismatch present. There is no aortic valve regurgitation. Carotid 06/2024 Summary: Right Side: 1-49% stenosis in the Internal Carotid Artery. Antegrade flow in the Vertebral Artery. Multiphasic flow is seen in the Subclavian Artery. Left Side: 50-69% stenosis in the Internal Carotid Artery. Antegrade flow in the Vertebral Artery. Multiphasic flow is seen in the Subclavian Artery. Assessment and Plan Assessment Anesthesia Assessment: Chart Reviewed
[2024-07-11 08:18] VITALS: BP 124/70; PULSE 73; RESP 14; TEMP 36.7; O2SAT 98; BMI 24.5
[2024-07-11] MEDS: Lactated Ringers 1,000 ML 100 ML IVCONT (08:36)
--- NOTE | 2024-07-11 08:39 | P.CONAN_ITS ---
[facility] Active Problems Active Problems: All Active Problems Prosthetic valve dysfunction (Acute) Abnormal echocardiography (Acute) Abnormal EKG (Acute) HTN (hypertension) (Acute) Carotid stenosis (Acute) Status post cardiac catheterization (Acute) Severe aortic stenosis (Acute) S/P AVR (Acute) CAD (coronary artery disease) (Acute) S/P CABG x 4 (Acute) Past Medical History Medical History Pulmonary hypertension Carotid stenosis CAD (coronary artery disease) Severe aortic stenosis HTN (hypertension) Functional capacity: independent ambulation Family History Family History Mother Brain aneurysm Father Prostate cancer H/O heart bypass surgery Family history of problems with anesthesia: No Surgical History Surgical History History of right-sided carotid endarterectomy Status post cardiac catheterization S/P AVR S/P CABG x 4 History of Problems with Anesthesia: No Social History Social History Household Members: Family Housing: House Are you a primary acute care clinical nurse specialist to a significant other at home: No Do you presently have visiting nurse or other home services: No Alcohol intake: former Year quit: 2020 Patient Tobacco Use Status: Never used Tobacco Use of substances other than those prescribed or required for medical reasons: No Have you been hit, kicked, punched, or otherwise hurt by someone within the past year? If so, by whom?: No Advance Directives: No Advance Directives Information Provided: Yes Advance Directives Date on File: 01/17/21 Recently lost weight without trying: No Nutrition Risks: No Nutritional Risk Poor oral hygiene: No service: No Current occupational status: employed Meds Allergies Allergy/AdvReac Type Severity Reaction Status Date / Time No Known Allergies Allergy Verified 07/11/24 08:21 Active Medications: Current Medications Lactated Ringer's (Lr) 1,000 mls @ 100 mls/hr IVCONT .Q10H JUDE Last Admin: 07/11/24 08:36 Dose: 100 mls/hr Home Medications ?Medication ?Instructions ?Recorded ?Confirmed ?Last Taken ?Type aspirin 81 mg tablet,delayed 81 mg PO DAILY 06/08/24 07/07/24 07/05/24 History release Exam Height,Weight and Vital Signs: Height 5 ft 5 in Weight 66.678 kg Last Vital Signs Temp 98.0 F 07/11/24 08:18 Pulse 73 07/11/24 08:18 Resp 14 07/11/24 08:18 BP 124/70 07/11/24 08:18 Pulse Ox 98 07/11/24 08:18 O2 Del Method Room Air 07/11/24 08:18 Airway Mallampati Class: II TM Dist: >3cm Neck ROM: Full Heart: RRR Lungs: CTA Assessment and Plan Assessment Anesthesia Assessment: Anesthesia Plan Discussed and Chart Reviewed Final Anesthetic Review Family History of Problems with Anesthesia: No History of Problems with Anesthesia: No NPO: Yes ASA Class: III Final Preanesthetic Review: Meds/Allgs Chart Reviewed and Anes Risks/Benef Reviewed Patient Risk: Intermediate Procedure Risk: Low Anesthetic Plan Anesthetic Plan: MAC: Disposition: Standard PACU
--- NOTE | 2024-07-11 08:52 | P.HPSUR_ITS ---
Pre-Procedural Eval Section A - 24 Hr Update-Section A only Date of Service: 07/11/24 Section B - Complete if H&P > 30 days Chief Complaint: Encounter for screening for malignant neoplasm of Details of Present Illness: see H&P no changes Relevant Family History (Specify if Yes): No Relevant Social History: None Present Medications: see Short Stay Collaborative assessment Medical History: No relevant PMH History of Previous Operations: No relevant previous surgery Allergies: Allergies Allergy/AdvReac Type Severity Reaction Status Date / Time No Known Allergies Allergy Verified 07/11/24 08:21 Review of Systems Sugical H&P ROS: Negative: Constitution, Cardiovascular, Respiratory, Neurological, Psychiatric, Hem-Onc, Allergic/Immunologic, Gastrointestinal, Genitourinary, Musculoskeletal, Integumentary, Endocrine and Eyes/Ears/No se/Throat Exam Surgical H&P Exam: Normal: HEENT, Normal: Heart, Normal: Lungs, Normal: Extremities, Normal: Abdomen, Normal: Skin and Normal: Neurological Plan Diagnosis/Plan: Unchanged I have reviewed the history and physical and performed a pertinent physical examination on my patient. No changes have occurred unless specified. Time Spent With Patient Time: Total time managing care of this patient today ____ minutes.
[2024-07-11 09:25] VITALS: BP 100/57; PULSE 75; RESP 16; TEMP 36.1; O2SAT 100
[2024-07-11 09:41] VITALS: BP 108/60; PULSE 66; RESP 16; TEMP 36.1; O2SAT 100
--- NOTE | 2024-07-11 09:49 | HO.POSTANES ---
Post Anesthesia Evaluation Post Anesthesia Evaluation Date of Service: 07/11/24 Vital Signs: Vital Signs Temp Pulse Resp BP Pulse Ox O2 Del Method 07/11/24 09:41 97 F 66 16 108/60 100 Room Air 07/11/24 09:25 97 F 75 16 100/57 L 100 Room Air 07/11/24 08:18 98.0 F 73 14 124/70 98 Room Air Mental Status: Awake Pain Control: Satisfactory Nausea/Vomiting: None Hydration: Adequate Anesthesia-Related Issues: No Anes. Related Issues
--- NOTE | 2024-07-11 10:28 | OP_ITS ---
DATE OF SERVICE: 07/11/2024 SURGEON: Attila Rivas MD INDICATIONS: Colon cancer screening. PREOPERATIVE DIAGNOSIS: POSTOPERATIVE DIAGNOSIS: PROCEDURE PERFORMED: Colonoscopy to the terminal ileum with biopsy. ESTIMATED BLOOD LOSS: COMPLICATIONS: ANESTHESIA: Medications, monitored anesthesia care. ASSISTANTS: SPECIMENS: DESCRIPTION OF PROCEDURE: History and physical performed. The risks and benefits of the procedure were explained to the patient. Informed consent was obtained. The patient was placed in the left lateral decubitus position. A digital rectal exam was performed and was found to be normal. The Olympus pediatric video colonoscope was introduced into the rectum and advanced to the cecum. The cecum was identified by transillumination, palpation, and identification of ileocecal valve. Examination was performed. The scope was removed. He tolerated the procedure well and was returned to recovery area in stable condition. FINDINGS: The terminal ileum was examined and appeared normal. The visualized colonic mucosa was normal. The quality of the prep was good. Two polyps were identified. Both measured less than 5 mm and removed with biopsy forceps. These were located in the sigmoid at 30 cm and in the rectum. Retroflexed examination showed small internal hemorrhoids and some hypertrophic anal papillae. The quality of prep was good. IMPRESSION: Colon polyps. RECOMMENDATION: Follow up the biopsy results. MD DEEJAY Lopez/TREVOR / [id number]
== END 2024-07-11 10:00 | disposition home or self-care (01) ==
PROVIDERS: PCP Internal Medicine; Visit Provider Internal Medicine Gastroenterology
PROC: 0DJD8ZZ Inspection of Lower Intestinal Tract, Via Natural or Artificial Opening Endoscopic (ICD-10-PCS; CPT 45378; principal; 2024-07-11 09:10)
DX: Z12.11 Encounter for screening for malignant neoplasm of colon (principal); D12.5 Benign neoplasm of sigmoid colon; K62.1 Rectal polyp; K64.8 Other hemorrhoids; K62.89 Other specified diseases of anus and rectum; I11.0 Hypertensive heart disease with heart failure; I50.40 Unspecified combined systolic (congestive) and diastolic (congestive) heart failure; Z95.2 Presence of prosthetic heart valve; Z95.1 Presence of aortocoronary bypass graft; Z79.82 Long term (current) use of aspirin; Z79.02 Long term (current) use of antithrombotics/antiplatelets; Z79.899 Other long term (current) drug therapy
CPT/HCPCS: 45380; 88305; J2003; J2704

== ENCOUNTER → 2024-09-05 10:08 | Outpatient (REF) | payer BC, SELFPAY | LOC: HO.CARD 10:08 | PROVIDERS: PCP Internal Medicine; Visit Provider Nurse Practitioner Family | DX: R93.1 Abnormal findings on diagnostic imaging of heart and coronary circulation (principal); Z95.2 Presence of prosthetic heart valve | CPT/HCPCS: 93306 ==

== ENCOUNTER → 2024-09-05 10:11 | Outpatient (BNV) | payer BC, SELFPAY | PROVIDERS: PCP Internal Medicine; Visit Provider Internal Medicine Cardiovascular Disease | DX: I34.81 Nonrheumatic mitral (valve) annulus calcification (principal); T82.857A Stenosis of other cardiac prosthetic devices, implants and grafts, initial encounter; R93.1 Abnormal findings on diagnostic imaging of heart and coronary circulation | CPT/HCPCS: 93306; 93356 ==

== ENCOUNTER 2024-10-20 09:44 | Day surgery (SDC) | payer BC, SELFPAY ==
--- OUTSIDE RECORDS SUMMARY | 2024-09-14 10:49 | XMS_ITS | Patient Health Record ---
Author Organization [facility] Address [address] [place] [address] Care Team Providers Care Study Abroad Coordinator Name Role Phone Jose Tate MD Primary Care Provider Attila Lewis Jr Unavailable ALLERGIES No Known Allergies RESULTS Component Value Reference Range Notes Pathology Reviewed date:07/13/2024 09:11:06 AM Interpretation: Performing Lab:[facility], [address] [place] [phone] Notes/Report: REASON FOR REFERRAL No Information MEDICATIONS Medication SIG (Take, Route, Frequency, Duration) Notes Start Date End Date Status Ezetimibe 10 MG Oral for 30 Ac tive Metoprolol Succinate ER 25 MG Oral for 30 Active Atorvastatin Calcium 80 MG Oral for 30 Active Spironolactone 25 MG Oral for 30 Active Clopidogrel Bisulfate 75 MG Oral for 30 Active Aspirin 81 81 MG 1 tablet Orally Once a day for 30 day(s) Active Valsartan 40 MG TAKE 1 TABLET BY ANTHONY EVERY DAY Oral for 30 Active MiraLax (colon prep) 17 GM/SCOOP mixed with Gatorade or Crystal Light Orally begin at 5:00 p.m. the day before the procedure for 1 day 04/26/2024 Active IMMUNIZATIONS Vaccine Route Administration Date Status Comme nts Influenza Unknown 06/08/2023 Administered SOCIAL HISTORY Tobacco Use: Social History Observation Description Date Details (start date - stop date) Never Smoker NA - NA Sex Assigned At : Social History Observation Description Sex Assigned At Unknown Tobacco Use/Smoking Question Answer Notes Patient is a nonsmoker Alcohol Screen Question Answer Notes Did you have a drink containing alcohol in the p ast year? No Points 0 Interpretation Negative PROBLEMS Problem Type ICD Code Onset Dates Problem Status W/U Status Risk SNOMED Code Notes Problem Colon cancer screening (Z12.11) Active confirmed 588526750 Problem Long-term use of aspirin therapy (Z79.82) Active confirmed 332126143 Problem correction current use of diuretic (Z79.899) Active confirmed [id number] VITAL SIGNS Temperature 98.0 degrees Fahrenheit 04/26/2024 Blood pressure diastolic 00 mm Hg 04/26/2024 Height 5 ft 5 in in 04/26/2024 Blood pressure systolic 000 mm Hg 04/26/2024 Weight 158 lb 2 oz lbs 04/26/2024 BMI 26.31 kg/m2 04/26/2024 Encounters Encounter Location Date Provider Diagnosis [facility] [address] [place] [id number] 05/23/2024 Attila Rivas Jr [facility] [place] [address] [place] [phone] 06/20/2024 Attila Rivas Jr [facility] [address] [place] [id number] 07/11/2024 Attila Rivas Jr Colon cancer screening Z12.11 and Colon polyp K63.5 [facility] [address] [place] [phone] 04/26/2024 Attila Rivas Jr Long-term use of aspirin therapy Z79.82 ; Colon cancer screening Z12.11 and correction current use of diuretic Z79.899 [facility] [address] [place] [phone] 04/28/2024 Attila Rivas Jr [facility] [address] [place] [phone] 06/05/2024 Attila Rivas Jr [facility] [address] [place] [phone] 07/13/2024 Attila Rivas Jr ASSESSMENTS Encounter Date Diagnosis Assessment Notes Treatment Notes Treatment Clinical Notes 07/11/2024 Colon cancer screening (ICD-10 - Z12.11) 07/11/2024 Colon polyp (ICD-10 - K63.5) 04/26/2024 Colon cancer screening (ICD-10 - Z12.11) Colonoscopy material was printed 04/26/2024 Long-term use of aspirin therapy (ICD-10 - Z79.82) 04/26/2024 terminal makeup operator current use of diuretic (ICD-10 - Z79.899) PLAN OF TREATMENT Future Test Test Name Order Date COLONOSCOPY 04/26/2024 Insurance Providers Payer Name Payer Address Payer Phone Subscriber Number Group Number Insured Name Patient Relationship to Insured Coverage Start Date Coverage End Date [facility] [address] [place] [address] [id number] PIYUSH SWEENEY Self - patient is the insured MEDICAL (GENERAL) HISTORY Medical History History ICD Code Colonoscopy 02/01, normal, ten-year follo wup 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
--- OUTSIDE RECORDS SUMMARY | 2024-09-14 10:50 | XMS_ITS ---
Author Organization [facility] Address [address] [place] [address] Care Team Providers Care Tool Salvage Worker Name Role Phone Jose Tate MD Primary Care Provider UnavailAttila Gilliland Jr [phone] REASON FOR VISIT screening Encounters Encounter Location Date Provider Diagnosis [facility] [place] [address] [place], [place] [phone] 07/11/2024 Attila Rivas Jr Colon cancer screening Z12.11 and Colon polyp K63.5 ASSESSMENTS Encounter Date Diagnosis Assessment Notes Treatment Notes Treatment Clinical Notes 07/11/2024 Colon cancer screening (ICD-10 - Z12.11) 07/11/2024 Colon polyp (ICD-10 - K63.5) PLAN OF TREATMENT No Information
--- OUTSIDE RECORDS SUMMARY | 2024-09-14 10:50 | XMS_ITS ---
Author Organization [facility] Address [address] [place] [address] Care Team Providers Care Choir Accompanist Name Role Phone Jose Tate MD Primary Care Provider Unavaila Attila Rodriguez Jr REASON FOR VISIT screening Encounters Encounter Location Date Provider Diagnosis [facility] [place] [address] [place], [place] [phone] 06/20/2024 Attila Rivas Jr PLAN OF TREATMENT No Information
--- OUTSIDE RECORDS SUMMARY | 2024-09-14 10:50 | XMS_ITS ---
Author Organization [facility] Address [address] [place] [address] Care Team Providers Care Circulator Name Role Phone Jose Tate MD Primary Care Provider UnavailAttila Gilliland Jr REASON FOR VISIT pathology Encounters Encounter Location Date Provider Diagnosis [facility] [address] [place] [address] 07/13/2024 Attila Rivas Jr PLAN OF TREATMENT No Information
[2024-09-25 07:53] VITALS: BMI 25.6
--- NOTE | 2024-09-26 09:36 | HO.ANESPROP2 ---
Documented by User: Jessica Luna NP 10/10/24 14:53 HPI - Anesthesia Eval Consult details Narrative: 69yo M for Transesophageal Echocardiogram s/p CABG x 4 and AVR 2020 [facility] Active Problems Active Problems: All Active Problems Prosthetic valve dysfunction (Acute) Abnormal echocardiography (Acute) Abnormal EKG (Acute) HTN (hypertension) (Acute) Carotid stenosis (Acute) Status post cardiac catheterization (Acute) Severe aortic stenosis (Acute) S/P AVR (Acute) CAD (coronary artery disease) (Acute) S/P CABG x 4 (Acute) Past Medical History Medical History Pulmonary hypertension Carotid stenosis CAD (coronary artery disease) Severe aortic stenosis HTN (hypertension) Family History Family History Mother Brain aneurysm Father Prostate cancer H/O heart bypass surgery Family history of problems with anesthesia: No Surgical History Surgical History History of right-sided carotid endarterectomy Status post cardiac catheterization S/P AVR S/P CABG x 4 History of Problems with Anesthesia: No Social History Social History Household Members: Family Housing: House Are you a primary health care attorney to a significant other at home: No Do you presently have visiting nurse or other home services: No Alcohol intake: former Year quit: 2020 Patient Tobacco Use Status: Never used Tobacco Second Hand Smoke Exposure: No Use of substances other than those prescribed or required for medical reasons: No Have you been hit, kicked, punched, or otherwise hurt by someone within the past year? If so, by whom?: No Are you DNR?: No Advance Directives: No Advance Directives Information Provided: Yes Advance Directives on File: No Advance Directives Date on File: 01/17/21 service: No Current occupational status: employed Meds Allergies Allergy/AdvReac Type Severity Reaction Status Date / Time No Known Allergies Allergy Verified 07/11/24 08:21 Home Medications ?Medication ?Instructions ?Recorded ?Confirmed ?Last Taken ?Type aspirin 81 mg tablet,delayed 81 mg PO DAILY 06/08/24 10/20/24 10/19/24 History release Exam Height,Weight and Vital Signs: Height 5 ft 5 in Weight 69.853 kg Narrative Narrative: ECHO 08/2024 Conclusions: - 1. Low normal LV ejection fraction 50-55% with impaired relaxation filling pattern 2. Severely reduced RV systolic function by TAPSE 3. Stenosis of the bioprosthetic aortic valve with mean gradient of 29 mm Hg, gradients are worse compared to prior study consider an alternative imaging such as JIM 4. Normal measured RV systolic pressure Assessment and Plan Assessment Anesthesia Assessment: Chart Reviewed Final Anesthetic Review Family History of Problems with Anesthesia: No History of Problems with Anesthesia: No Documented by User: Wanda Barrow MD 10/20/24 12:20 HPI - Anesthesia Eval Consult details Narrative: 69yo M for Transesophageal Echocardiogram s/p CABG x 4 and AVR 2020. Murmur. TTE with worsening gradient across aortic valve. For JIM PMFSH Active Problems Active Problems: All Active Problems Prosthetic valve dysfunction (Acute) Abnormal echocardiography (Acute) Abnormal EKG (Acute) HTN (hypertension) (Acute) Carotid stenosis (Acute) Status post cardiac catheterization (Acute) ?Severe aortic stenosis (Acute)- asymptomatic. Abnormal AV gradient on TTE S/P AVR (Acute) CAD (coronary artery disease) (Acute) S/P CABG x 4 (Acute) On plavix and baby aspirin. Was not told to stop Past Medical History Medical History Pulmonary hypertension Carotid stenosis CAD (coronary artery disease) Severe aortic stenosis HTN (hypertension) Family History Family History Mother Brain aneurysm Father Prostate cancer H/O heart bypass surgery Family history of problems with anesthesia: No Surgical History Surgical History History of right-sided carotid endarterectomy Status post cardiac catheterization S/P AVR S/P CABG x 4 History of Problems with Anesthesia: No Social History Social History Household Members: Family Housing: House Are you a primary health care attorney to a significant other at home: No Do you presently have visiting nurse or other home services: No Alcohol intake: former Year quit: 2020 Patient Tobacco Use Status: Never used Tobacco Second Hand Smoke Exposure: No Use of substances other than those prescribed or required for medical reasons: No Have you been hit, kicked, punched, or otherwise hurt by someone within the past year? If so, by whom?: No Are you DNR?: No Advance Directives: No Advance Directives Information Provided: Yes Advance Directives on File: No Advance Directives Date on File: 01/17/21 service: No Current occupational status: employed Meds Allergies Allergy/AdvReac Type Severity Reaction Status Date / Time No Known Allergies Allergy Verified 07/11/24 08:21 Home Medications ?Medication ?Instructions ?Recorded ?Confirmed ?Last Taken ?Type aspirin 81 mg tablet,delayed 81 mg PO DAILY 06/08/24 10/20/24 10/19/24 History release Exam Height,Weight and Vital Signs: Height 5 ft 5 in Weight 69.853 kg Vital Signs Temp Pulse Resp BP Pulse Ox O2 Del Method 10/20/24 10:05 97.9 F 69 15 167/84 H 98 Room Air Airway Mallampati Class: III TM Dist: >3cm Neck ROM: Full Partial: Upper Loose/Missing/Broken Teeth: Yes (Missing molars. Top partial denture- single tooth. Denies broken or loose teeth) Heart: RRR+ systolic murmur Lungs: CTAB Assessment and Plan Assessment Anesthesia Assessment: Anesthesia Plan Discussed and Chart Reviewed Final Anesthetic Review Family History of Problems with Anesthesia: No History of Problems with Anesthesia: No NPO: Yes ASA Class: III Final Preanesthetic Review: No Changes in Pt Med Stat, Meds/Allgs Chart Reviewed, Consent Obtained/Reviewed and Anes Risks/Benef Reviewed Patient Risk: Intermediate Procedure Risk: Low Assessment/Block/Sedation in SS: Assess/Block/Sedation-SS Anesthetic Plan Anesthetic Plan: TIVA Disposition: Standard PACU
[2024-10-20 09:57] VITALS: BMI 25.2
[2024-10-20 10:05] VITALS: BP 167/84; PULSE 69; RESP 15; TEMP 36.6; O2SAT 98
[2024-10-20] MEDS: Lactated Ringers 1,000 ML 100 ML IVCONT (10:31)
--- NOTE | 2024-10-20 11:27 | MHC.SHP ---
Pre-Procedural Eval Section A - 24 Hr Update-Section A only Date of Service: 10/20/24 Section B - Complete if H&P > 30 days Chief Complaint: Abnormal findings on diagnostic imaging of heart a Details of Present Illness: 69-year-old male with prior history of aortic valve replacement and coronary artery bypass grafting. Recent echocardiogram shows worsening gradient across the bioprosthetic aortic valve. No clinical symptoms reported. Relevant Family History (Specify if Yes): No Relevant Social History: Tobacco Use Present Medications: see Short Stay Collaborative assessment Medical History: Significant History History of Previous Operations: Relevant previous surgery/procedure and date(s) Allergies: Allergies Allergy/AdvReac Type Severity Reaction Status Date / Time No Known Allergies Allergy Verified 07/11/24 08:21 Review of Systems Sugical H&P ROS: Negative: Constitution, Cardiovascular, Respiratory, Neurological, Psychiatric, Hem-Onc, Allergic/Immunologic, Gastrointestinal, Genitourinary and Musculoskeletal Exam Surgical H&P Exam: Normal: HEENT, Normal: Lungs, Normal: Extremities, Normal: Abdomen and Normal: Skin and Significant Findings: Heart (Systolic murmur) Plan Diagnosis/Plan: Unchanged I have reviewed the history and physical and performed a pertinent physical examination on my patient. No changes have occurred unless specified. Time Spent With Patient Time: Total time managing care of this patient today ____ minutes.
--- NOTE | 2024-10-20 11:30 | CA_ITS ---
Transesophageal Echocardiogram Patient (Last, First, Middle): Mathew Birch A Gender: Male Date of : 1955 Age: 69 Procedure Date: 10/20/2024 Procedure Type: Transesophageal Echocardiogram Location: OP Height: 167.64 cm Weight: kg Statistical Machine Servicer: VICKIE Referring MD: Cortez Hanson MD Cutter Grinder Operator: Cortez Hanson MD Symptoms: Evaluate bioprosthetic aortic valve Conclusion: ??? 1. Increased gradient across the bioprosthetic aortic valve with mild thickening of the leaflet. Consider CT scan to evaluate for valve thrombosis 2. Normal LV systolic function 3. Mild mitral regurgitation 4. No intracardiac thrombi, masses, vegetations 5. No intracardiac shunting Findings Procedure Information Consent was obtained prior to the procedure. Pre JIM oral cavity was checked and revealed no overcrowding. The adult 3D probe was passed with no difficulty. This was a technically good study. Left Ventricle Normal left ventricular size, thickness, and systolic function. The visually estimated ejection fraction is between 60-65%. Spectral Doppler is indicative of an impaired relaxation filling pattern. There is no evidence of a mass in the left ventricle. Right Ventricle Normal right ventricular cavity size and systolic function. Atria The left atrium is mildly dilated. There is no evidence of a patent foramen ovale. There is no evidence of thrombus or mass in the left atrium. No masses or thrombi noted in left atrium or left atrial appendage. The left upper, right upper and right lower pulmonary related normally into the left atrium. There is no evidence of thrombus or mass in the right atrium. No thrombi or masses noted in the right atrium. IVC and SVC draining normally into the left atrium. Aortic Valve A bioprosthetic aortic valve is present. The mean gradient is 24 mmHg. There is no evidence of a mass on the aortic valve. on transgastric view increased gradient noted at 24 mm Hg, slightly lower than noted on transthoracic views probably related to slight off axis views. The leaflet mobility and bioprosthetic valve appears to be preserved but mild thickness can not be entirely excluded. There was no periprosthetic aortic regurgitation. The valve is well seated with no abnormal rocking motion. Mitral Valve There is mild anterior and posterior mitral leaflet thickening. There is mild mitral valve regurgitation. There is no mitral valve stenosis. Pulmonic Valve The pulmonic valve is normal. There is trace pulmonic valve regurgitation. Tricuspid Valve Normal tricuspid valve structure. There is mild tricuspid valve regurgitation. The right ventricular systolic pressure is normal. Great Vessels All visible segments of the aorta are normal in size. The visualized portions of the pulmonary artery and branches are normal. moderate atherosclerotic changes noted in his descending thoracic as well as the arch of the aorta Venous The inferior vena cava is normal in size and collapses greater than 50% with inspiration. Pericardium/Pleural There is no evidence of pericardial effusion. Measurements 2D Linear Measurements LVOT Diam: 2.20 3.0+(-)1.3 cm Aortic Valve AoV Pk Ramin: 3.27 AoV Mn Ramin: 2.26 AoV VTI: 0.74 AoV Pk Grad: 43.00 Aov Mn Grad: 24.00 JENNIFER Cont.VTI: 1.56 LVOT LVOT Pk Ramin: 1.38 LVOT Mn Ramin: 0.94 LVOT VTI: 0.30 LVOT Pk Grad: 8.00 LVOT Mn Grad: 4.00 LVOT Diam: 2.20 LVOT Area: 3.80 Updated by Cortez Hanson on 01:14 PM with Status of Final Cortez Hanson MD electronically signed on 10/21/2024 1:14:54 PM with status of Final
[2024-10-20 12:30] VITALS: BP 116/56; PULSE 58; RESP 16; TEMP 36.3; O2SAT 97
[2024-10-20 12:45] VITALS: BP 125/68; PULSE 60; RESP 16; TEMP 36.3; O2SAT 98
== END 2024-10-20 14:04 | disposition home or self-care (01) ==
PROVIDERS: PCP Internal Medicine; Visit Provider Internal Medicine Cardiovascular Disease
PROC: (CPT 93312; principal; 2024-10-20 11:30)
DX: R93.1 Abnormal findings on diagnostic imaging of heart and coronary circulation (principal); I25.10 Atherosclerotic heart disease of native coronary artery without angina pectoris; I10 Essential (primary) hypertension; I35.0 Nonrheumatic aortic (valve) stenosis; I07.1 Rheumatic tricuspid insufficiency; I34.0 Nonrheumatic mitral (valve) insufficiency; Z95.2 Presence of prosthetic heart valve; Z95.1 Presence of aortocoronary bypass graft
CPT/HCPCS: 93312; J2003; J2704; J3010

== ENCOUNTER → 2024-10-20 11:30 | Outpatient (BNV) | payer BC, SELFPAY | PROVIDERS: PCP Internal Medicine; Visit Provider Internal Medicine Cardiovascular Disease | DX: I70.0 Atherosclerosis of aorta (principal); I34.0 Nonrheumatic mitral (valve) insufficiency; Z95.3 Presence of xenogenic heart valve; I36.1 Nonrheumatic tricuspid (valve) insufficiency | CPT/HCPCS: 76376; 93312; 93320; 93325 ==

== ENCOUNTER 2024-11-02 16:25 | Outpatient (REF) | payer BC, SELFPAY ==
--- NOTE | ~2024-11-02 | CT_ITS ---
CLINICAL HISTORY: R93.1 - Abnormal findings on diagnostic imaging of heart and coronary ci... assessi ng for valve thrombosis. Just had JIM CT chest without contrast Comparison: CT - CT ANGIO CHEST PE PROTOCOL - 01/17/21 17:06 EDT Findings: The prior CT report is not available for review. Heart is enlarged. Severe Atherosclerosis calcification of the coronary artery. There is calcification of the aortic valve and mitral valve. Status post CABG. The visualized thyroid and mediastinum are unremarkable. Evaluation of the mediastinum is limited due to lack of IV contrast. The lungs are clear. Calcified granulomas. The upper abdomen is unremarkable. The bones are intact. IMPRESSION: No acute findings. This document has been electronically signed by: Tracy Wolf MD on 11/03/2024 16:40:52
--- OUTSIDE RECORDS SUMMARY | 2024-11-02 18:04 | XMS_ITS ---
Author Organization [facility] Address [address] [place] [address] Care Team Providers Care Still Operator Helper Name Role Phone Lea HAY, Jose Primary Care Provider Attila Lewis Jr [phone] REASON FOR VISIT screening Encounters Encounter Location Date Provider Diagnosis [facility] [place] [address] [place], [place] [phone] 07/11/2024 Attila Rivas Jr Colon cancer screening Z12.11 and Colon polyp K63.5 Assessments Encounter Date Diagnosis (ICD Code) Assessment Notes Treatment Notes Treatment Clinical Notes Section Notes 07/11/2024 Colon cancer screening (ICD-10 - Z12.11) 07/11/2024 Colon polyp (ICD-10 - K63.5) Plan Of Treatment No Information Progress Notes * PIYUSH SWEENEY ADOB: [birth year] (69 yo M)Acc No.[id number]:07/11/2024 COLON WITH MAC Patient:?PIYUSH SWEENEY Provider:?Attila Rivas MD :1955???Age:69 Y???Sex:Male [place] e:07/11/2024 Address:[address] , [address] , [place], [place] Pcp:Jose Tate MD Subjective: * Chief Complaints: * ???1. Screening. * Medical History:? Objective: * Vitals:? Assessment: * Assessment: 1.?Colon cancer screening - Z12.11 (Primary)???2.?Colon polyp - K63.5??? Plan: * Treatment: * Procedure Codes:?40072 COLON OSCOPY AND BIOPSY, 0529F INTRVL 3+YRS PTS CLNSCP DOCD * * The named appointment provid er may or may not be the originator of this progress note, and it is not deemed complete until electronically signed by the appointment provider. Sign off status: Pending * Provider:?Attila Rivas MD Date:?1 09/11/2023 Generated for Keli velazquez/Gino/Ashleeitting on:?11/02/2024 06:04 PM EDT
--- OUTSIDE RECORDS SUMMARY | 2024-11-02 18:04 | XMS_ITS ---
Author Organization [facility] Address [address] [place] [address] Care Team Providers Care Senior Shipping Clerk Name Role Phone Lea HAY, Jose Primary Care Provider Attila Lewis Jr REASON FOR VISIT screening Encounters Encounter Location Date Provider Diagnosis [facility] [place] [address] [place], [place] [phone] 06/20/2024 Attila Rivas Jr Plan Of Treatment No Information Progress Notes * ZAHRA PIYUSH ADOB: [birth year] (69 yo M)Acc No.[id number]:06/20/2024 COLON WITH MAC Patient:?PIYUSH SWEENEY Provider:?Attila Rivas MD :1955???Age:69 Y???Sex:Male [place] e:06/20/2024 Address:[address] , [address] , [facility] Pcp:Jose Tate MD Subjective: * Chief Complaints: * ???1. Screening. * Medical History:? Objective: * Vitals:? Assessment: Plan: * Treatment: * * The named appointment provid er may or may not be the originator of this progress note, and it is not deemed complete until electronically signed by the appointment provider. Sign off status: Pending * Provider:?Attila Rivas MD Date:?1 08/20/2023 Generated for Keli velazquez/Gino/eTransmitting on:?11/02/2024 06:04 PM EDT
--- OUTSIDE RECORDS SUMMARY | 2024-11-02 18:04 | XMS_ITS | Patient Health Record ---
Author Organization [facility] Address [address] [place] [address] Care Team Providers Care Golf Manager Name Role Phone Lea HAY, Jose Primary Care Provider Attila Lewis Jr Unavailable [phone] Allergies No Known Allergies Results Component Value Reference Range Notes Pathology Reviewed date:07/13/2024 09:11:06 AM Interpretation: Performing Lab:[facility], [address] [place] [phone] Notes/Report: Name: Piyush Sweeney Age/Sex: 69/M : 1955 Unit#: [id number] Attend Dr: Attila Rivas MD Re07/11/24 Status : [facility] Location: [facility] Disch: SPEC : [id number] RECD : 07/11/24 STATUS: NAM GARNICA NUM: [id number] ARABELLA: 07/11/24 [facility] [place] DR: Attila Rivas MD ENTERED: 07/11/24- 15 SP TYPE: Surgical OTHR DR: Jose Tate MD ORDERED: HE Stain/6, Gross Micro L4/2 Diagnosis A. Colon, 30 cm, juan c ypectomy: Tubular adenoma; negative for high-grade dysplasia or carcinoma. B. Rectum, polypecto my: Hyperplastic mucosal polyp. Clinical History Pre-Op Dx: Screening Post-Op Dx: Colon polyps Microscopic Description A, B. Microscopic se ctions reviewed. Material Received A. Polyp at 30 B. Rectal polyp Gross Description Received in two parts. Part A: Received in formalin labeled ?polyp at 30? is a 0.2 cm rooney irregular tissue fragment, submitted in toto in a cassette labeled A. Part B: Received in formalin labeled ?rectal polyp? is a 0.25 cm rooney-pink irregular tissue fragment, submitted in toto in a cassette labeled B. CEDS Copies To: Attila Rivas MD [facility] [address] [place] [address] [address] [place] [address] Jose Tate MD [facility] [address] [place] [address] CONTINUED ON NEXT PAGE Name: QuetaPiyush Huber Age/Sex: 69/M : 1955 Unit#: [id number] Attend Dr: Attila Rivas MD Re07/11/24 Status : [facility] Location: [facility] Disch: SPEC : [id number] RECD : 07/11/24 STATUS: NAM GARNICA NUM: [id number] ARABELLA: 07/11/24 [facility] [place] DR: Attila Rivas MD ENTERED: 07/11/24 SP TYPE: Surgical OTHR DR: Jose Tate MD ORDERED: PACO Stain/6, Gross Micro L4/2 Copies To: (Continued) [phone] Signed (si gnature on file) Neri Olivier MD 07/13/24 0816 END OF REPORT Reason For Referral No Information Medications Medication SIG (Take, Route, Frequency, Duration) Notes [...] the procedure for 1 day 04/26/2024 Active Immunizations Vaccine Route Administration Date Status Comme nts Influenza Unknown 06/08/2023 Administered Social History Tobacco Use: Social History Observation Description Date Details (start date - stop date) Never Smoker NA - NA Tobacco Use/Smoking Question Answer Notes Patient is a nonsmoker Alcohol Screen Question Answer Notes Did you have a drink containing alcohol in the p ast year? 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 [address] [place] [phone] 04/26/2024 Attila Rivas Jr Long-term use of aspirin therapy Z79.82 ; Colon cancer screening Z12.11 and MCFP current use of diuretic Z79.899 [facility] [address] [place] [phone] 04/28/[address] [facility] [address] [place] [phone] 06/05/[address] [facility] [address] [place] [phone] 07/13/2024 Attila Rivas Jr Assessments Encounter Date Diagnosis (ICD Code) Assessment Notes Treatment Notes Treatment Clinical Notes Section Notes 07/11/2024 Colon cancer screening (ICD-10 - Z12.11) 07/11/2024 Colon polyp (ICD-10 - K63.5) 04/26/2024 Colon cancer screening (ICD-10 - Z12.11) Colonoscopy material was printed We discussed colonoscopy today. We discussed risks and benefits of the procedure today. He understands these and agrees to proceed. This will be arranged at his convenience. He is advised to stop aspirin and Plavix one week before the procedure. He will stop his spironolactone the day before the procedure. 04/26/2024 Long-term use of aspirin therapy (ICD-10 - Z79.82) We discussed colonoscopy today. We discussed risks and benefits of the procedure today. He understands these and agrees to proceed. This will be arranged at his convenience. He is advised to stop aspirin and Plavix one week before the procedure. He will stop his spironolactone the day before the procedure. 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 We discussed risks and benefits of the procedure today. He understands these and agrees to proceed. This will be arranged at his convenience. He is advised to stop aspirin and Plavix one week before the procedure. He will stop his spironolactone the day before the procedure. 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
--- OUTSIDE RECORDS SUMMARY | 2024-11-02 18:05 | XMS_ITS ---
Author Organization [facility] Address [address] [place] [address] Care Team Providers Care Petrophysical Engineer Name Role Phone Jose Tate MD Primary Care Provider Attila Lewis Jr REASON FOR VISIT pathology Encounters Encounter Location Date Provider Diagnosis [facility] [address] [place] [address] 07/13/2024 Attila Rivas Jr Plan Of Treatment No Information Progress Notes * PIYUSH SWEENEY ADOB: [birth year] (69 yo M)Acc No.[id number]:07/13/2024 Patient:?PIYUSH SWEENEY :1955???Age:69 Y???Sex:Male Address:[address] , [address] , [place] [address] * true * Date:? Generated for Jakobi caroline/Gino/eTransmitting on:?11/02/2024 06:04 PM EDT
== END 2024-11-02 16:26 | disposition home or self-care (01) ==
LOC: HO.CT 16:25
PROVIDERS: Visit Provider Nurse Practitioner Family
DX: R93.1 Abnormal findings on diagnostic imaging of heart and coronary circulation (principal); T82.09XA Other mechanical complication of heart valve prosthesis, initial encounter
CPT/HCPCS: 71250

== ENCOUNTER → 2024-11-02 16:26 | Outpatient (BNV) | payer BC, SELFPAY | PROVIDERS: Visit Provider Nuclear Medicine | DX: R93.1 Abnormal findings on diagnostic imaging of heart and coronary circulation (principal); I51.7 Cardiomegaly; I25.10 Atherosclerotic heart disease of native coronary artery without angina pectoris; I35.0 Nonrheumatic aortic (valve) stenosis | CPT/HCPCS: 71250 ==

== ENCOUNTER 2024-11-08 14:16 | Outpatient (AMB) | payer BC, SELFPAY ==
--- NOTE | 2024-11-08 14:27 | MHC.OFFVIS ---
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 He was seen at [facility] when he presented with congestive heart failure and complained of exertional angina. His echocardiography showed concern for low-flow low gradient severe aortic valve stenosis with severely reduced ejection fraction. He was taken for left and right heart catheterization which showed severe multivessel disease along with low-flow low gradient severe . With these findings he was referred for bypass surgery and aortic valve replacement. He underwent surgery and had a bioprosthetic aortic valve. He has clinically done well since then. His repeat echocardiography has shown ejection fraction of 45-50% with inferior wall motion abnormality which is similar to before. Previously his ejection fraction was severely reduced. He also has a mean gradient 26 across the bioprosthetic aortic valve. There is some bioprosthetic valve dysfunction present. He continues to be clinically asymptomatic and has been active at work without any issues. He had repeat echocardiography in June 2022. His ejection fraction was 55-60% with some wall motion abnormalities. He had mean gradient of 27 mm Hg across the bioprosthetic valve at that time. He had a 23 mm Medtronic mosaic bioprosthetic valve which was used for AVR. He continues to be asymptomatic. He is working and has no functional limitations at this point. 07/12/2023: He returns for follow-up. He has been doing well. No chest discomfort shortness of breath. Taking medications regularly. No active concerns right now. 11/08/2024: Mathew is here for follow-up. He has been following with [facility] over the last 2 years. Apparently had echocardiography performed in August of 2024 which showed low-normal ejection fraction 50 55%, severely reduced RV systolic function, bioprosthetic aortic valve with mean gradient of 29 mm Hg. Previous gradient was 20 mm Hg in July of 2023. Subsequent to that he had a JIM performed by Dr. Hanson which showed mean gradient across aortic valve 24 mm Hg. Normal leaflet mobility with mild thickness of the leaflets noted. He continues to be active and has no exertional symptoms. His blood pressure is elevated today but he is quite nervous appearing today. We discussed in detail about the findings and potential explanations and further workup. [facility] Medical History Pulmonary hypertension Carotid stenosis CAD (coronary artery disease) Severe aortic stenosis HTN (hypertension) Surgical History History of right-sided carotid endarterectomy Status post cardiac catheterization S/P AVR S/P CABG x 4 Family History Mother Brain aneurysm Father Prostate cancer H/O heart bypass surgery Social History Household Members: Family Housing: House Are you a primary career technical counselor to a significant other at home: No Do you presently have visiting nurse or other home services: No Alcohol intake: former Year quit: 2020 Patient Tobacco Use Status: Never used Tobacco Second Hand Smoke Exposure: No Advance Directives Date on File: 01/17/21 service: No Current occupational status: employed Review of Systems Const Denies chills, Denies fatigue, Denies fever(s), Denies frequent falls, Denies weakness, Denies weight gain and Denies weight loss ENT Denies dizziness Card Denies chest pain, Denies leg edema, Denies lightheadedness, Denies palpitations, Denies dyspnea and Denies dyspnea on exertion Resp Denies cough, Denies dyspnea and Denies dyspnea on exertion GI Denies hematochezia Musc Denies abnormal gait, Denies muscle weakness, Denies numbness, Denies radiating pain into limb and Denies tingling Neuro Denies abnormal gait, Denies dizziness, Denies frequent falls, Denies numbness, Denies tingling and Denies weakness Endo Denies fatigue and Denies palpitations Physical Exam Vital Signs: Last Vital Signs Pulse 73 11/08/24 14:31 BP 160/90 H 11/08/24 14:31 BMI result Body Mass Index 25.3 GENERAL APPEARANCE: in no acute distress, pleasant. NECK: Right carotid endarterectomy scar,, no jugular venous distention. SKIN: Well-healed midline sternotomy scar. HEART: Systolic murmur aortic area radiating to the carotids, regular rate and rhythm. LUNGS: clear to auscultation bilaterally. ABDOMEN: soft, nontender. EXTREMITIES: no edema. PERIPHERAL PULSES: equal. NEUROLOGIC: No gross deficits, AAO X 3 Assessment & Plan Assessment & Plan (1) Prosthetic valve dysfunction: Code(s): T82.09XA - Other mechanical complication of heart valve prosthesis, initial encounter Category: Medical (2) S/P AVR: Comment: 01/29/21 23mm Mosiac Bioprosthetic AVR Code(s): Z95.2 - Presence of prosthetic heart valve Category: Surgical (3) S/P CABG x 4: Comment: 01/29/2021 MANN to mid LAD, SVG to PDA, SVG to OM, left radial artery to diagonal Code(s): Z95.1 - Presence of aortocoronary bypass graft Category: Surgical Plan Pleasant 61 year gentleman with background of bioprosthetic aortic valve replacement and CABG. He had moderate gradient across the aortic valve after the surgery and it is possible that this was related to patient prosthesis mismatch. More recently he has gradients changed and his mean gradient was 29 by echocardiography. He underwent JIM which actually showed mean gradient of 24 mm Hg and the valve leaflets appear to be moving normally but there was mild thickening of the leaflets noticed. Question was raised about subclinical thrombosis. He is already on aspirin Plavix which she will be continuing. I think we confirmed this by doing CT scan to see if there is any evidence of HALT. If CT confirms HALT, then I would favor changing him from Plavix to Eliquis for at least 3 months and we can reassess the gradients after that. My impression so far is that this is patient prosthesis mismatch related issue but given mild thickening noticed on the JIM and concerns raised I think we have to rule out subclinical thrombosis. Clinically he is stable and has no exertional issues. I have advised him to continue to stay active in his day-to-day life. Blood pressure is elevated but he was quite nervous. He has a blood pressure cuff at home and we will monitor his blood pressure and we will keep a log for the next week and report to us. Follow-up in few months. Thank you for allowing me to participate in the care of your patient. Please feel free to contact me if you have any questions. Orders: Orders CT Cardiac Coronary Angio Today T82.09XA - Other mechanical complication of heart valve prosthesis, initial encounter Basic Metabolic Panel Today T82.09XA - Other mechanical complication of heart valve prosthesis, initial encounter Coding Level of Care Code Est Pt Level 5 (73008) Diagnoses Prosthetic valve dysfunction T82.09XA S/P AVR Z95.2 S/P CABG x 4 Z95.1
[2024-11-08 14:31] VITALS: BP 160/90; PULSE 73; BMI 25.3
--- OUTSIDE RECORDS SUMMARY | 2024-11-08 17:00 | XMS_ITS | Patient Health Record ---
Author Organization [facility] Address [address] [place] [address] Care Team Providers Care Field Laboratory Operator Name Role Phone Lea HAY, Jose Primary Care Provider Attila Lewis Jr Unavailable Allergies No Known Allergies Results Component Value Reference Range Notes Pathology Reviewed date:07/13/2024 09:11:06 AM Interpretation: Performing Lab:[facility], [address] [place] [phone] Notes/Report: Name: Piyush Sweeney Age/Sex: 69/M : 1955 Unit#: [id number] Attend Dr: Attila Rivas MD Re07/11/24 Status : [facility] Location: [facility] Disch: SPEC : [id number] RECD : 07/11/24 STATUS: NAM GARNICA NUM: [id number] ARABELLA: 07/11/[address] [facility] [address]: Attila Rivas MD ENTERED: 07/11/24- 15 [...] B. CEDS Copies To: Attila Rivas MD [facility] [address] [place] [address] [address] [place] [address] Jose Tate MD [facility] [address] [place] [address] CONTINUED ON NEXT PAGE Name: QuetaPiyush Huber Age/Sex: 69/M : 1955 Unit#: [id number] Attend Dr: Attila Rivas MD Re07/11/24 Status : [facility] Location: [facility] Disch: SPEC : [id number] RECD : 07/11/24 STATUS: NAM GARNICA NUM: [id number] ARABELLA: 07/11/[address] [facility] [address]: Attila Rivas MD ENTERED: 07/11/24 SP TYPE: Surgical OTHR DR: Jose Tate MD ORDERED: PACO Stain/6, Gross Micro L4/2 Copies To: (Continued) [phone] Signed (si gnature on file) Neri Olivier [...] Problem Status W/U Status Risk Notes Problem 454346575 Colon cancer screening (Z12.11) Active confirmed Problem 029971647 Long-term use of aspirin therapy (Z79.82) Active confirmed Problem 59211661569782013 terminal 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 (Z79.899) Active confirmed Vital Signs Temperature 98.0 degrees Fahrenheit 04/26/2024 Blood pressure diastolic 00 mm Hg 04/26/2024 Height 5 ft 5 in in 04/26/2024 Blood pressure systolic 000 mm Hg 04/26/2024 Weight 158 lb 2 oz lbs 04/26/2024 BMI 26.31 kg/m2 04/26/2024 Encounters Encounter Location Date Provider Diagnosis [facility] Outpatient [address] [place] [phone] 07/11/2024 Attila Rivas Jr Colon cancer screening Z12.11 and Colon polyp K63.5 [facility] [address] [place] [phone] 04/26/2024 Attila Rivas Jr Long-term use of aspirin therapy Z79.82 ; Colon cancer screening Z12.11 and USP current use of diuretic Z79.899 [facility] [address] [place] [phone] 04/28/2024 Attila Rivas Jr [facility] [address] [place] [phone] 06/05/2024 Attila Rivas Jr [facility] [address] [place] [phone] 07/13/2024 Attila Rivas Jr Assessments Encounter Date [...] spironolactone the day before the procedure. 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
--- OUTSIDE RECORDS SUMMARY | 2024-11-08 17:00 | XMS_ITS ---
Author Organization [facility] Address [address] [place] [address] Care Team Providers Care Distributor Cleaner Name Role Phone Lea HAY, Jose Primary Care Provider Attila Lewis Jr [phone] REASON FOR VISIT screening Encounters Encounter Location Date Provider Diagnosis [facility] [address] [place], [place] [phone] 07/11/2024 Attila Rivas Jr Colon cancer screening Z12.11 and Colon polyp K63.5 Assessments Encounter Date Diagnosis (ICD Code) Assessment Notes Treatment Notes Treatment Clinical Notes Section Notes 07/11/2024 Colon cancer screening (ICD-10 - Z12.11) 07/11/2024 Colon polyp (ICD-10 - K63.5) Plan Of Treatment No Information Progress Notes * PIYUSH SWEENEY ADOB: [birth year] (69 yo M)Acc No.[id number]:07/11/2024 COLON WITH MAC Patient:?PIYUSH SWEENEY Provider:?Attila Rivas MD :1955???Age:69 Y???Sex:Male Dakota e:07/11/2024 Address:[address] , [address] , [place], [place] Pcp:Jose Tate MD Subjective: * Chief Complaints: * ???1. Screening. * Medical History:? Objective: * Vitals:? Assessment: * Assessment: 1.?Colon cancer screening - Z12.11 (Primary)???2.?Colon polyp - K63.5??? Plan: * Treatment: * Procedure Codes:?89915 COLON OSCOPY AND BIOPSY, 0529F INTRVL 3+YRS PTS CLNSCP DOCD * * The named appointment provid er may or may not be the originator of this progress note, and it is not deemed complete until electronically signed by the appointment provider. Sign off status: Pending * Provider:?Attila Rivas MD Date:?1 09/11/2023 Generated for Keli velazquez/Gino/Ashleeitting on:?11/08/2024 04:59 PM EDT
--- OUTSIDE RECORDS SUMMARY | 2024-11-08 17:00 | XMS_ITS ---
Author Organization [facility] Address [address] [place] [address] Care Team Providers Care Edger Runner Name Role Phone Lea HAY, Jose Primary Care Provider Attila Lewis Jr REASON FOR VISIT screening Encounters Encounter Location Date Provider Diagnosis [facility] [place] [address] [place], [place] [phone] 06/20/2024 Attila Rivas Jr Plan Of Treatment No Information Progress Notes * ZAHRA PIYUSH ADOB: [birth year] (69 yo M)Acc No.[id number]:06/20/2024 COLON WITH MAC Patient:?PIYUSH SWEENEY Provider:?Attila Rivas MD :1955???Age:69 Y???Sex:Male Dakota e:06/20/2024 Address:[address] , [address] , [facility] Pcp:Jose Tate MD Subjective: * Chief Complaints: * ???1. Screening. * Medical History:? Objective: * Vitals:? Assessment: Plan: * Treatment: * * The named appointment provid er may or may not be the originator of this progress note, and it is not deemed complete until electronically signed by the appointment provider. Sign off status: Pending * Provider:?Attila Rivas MD Date:?1 08/20/2023 Generated for Jakobi caroline/Gino/eTransmitting on:?11/08/2024 04:59 PM EDT
--- OUTSIDE RECORDS SUMMARY | 2024-11-08 17:00 | XMS_ITS ---
Author Organization [facility] Address [address] [place] [address] Care Team Providers Care Human Resource Advisor Name Role Phone Jose Tate MD Primary Care Provider Attila Lewis Jr [phone] REASON FOR VISIT pathology Encounters Encounter Location Date Provider Diagnosis [facility] [address] [place] [address] 07/13/2024 Attila Rivas Jr Plan Of Treatment No Information Progress Notes * PIYUSH SWEENEY ADOB: [birth year] (69 yo M)Acc No.[id number]:07/13/2024 Patient:?PIYUSH SWEENEY :1955???Age:69 Y???Sex:Male Address:[address] , [address] , [place] [address] * true * Date:? Generated for Jakobi caroline/Gino/eTransmitting on:?11/08/2024 05:00 PM EDT
== END 2024-11-08 15:02 | disposition home or self-care (01) ==
LOC: HO.HCS 14:16
PROVIDERS: PCP Internal Medicine; Visit Provider Internal Medicine Cardiovascular Disease
DX: T82.09XA Other mechanical complication of heart valve prosthesis, initial encounter (principal); Z95.2 Presence of prosthetic heart valve; Z95.1 Presence of aortocoronary bypass graft
CPT/HCPCS: 99214

== ENCOUNTER 2024-12-07 14:36 | Outpatient (AMB) | payer BC, SELFPAY ==
[2024-12-07 14:53] VITALS: BP 180/82; PULSE 76; BMI 25.1
--- NOTE | 2024-12-07 14:53 | A.OFFVIS_ITS ---
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: No Allergies No Known Allergies Allergy (Verified 12/07/24 14:55) Medication List - Last Reconciled 12/07/24 by Elzbieta Kauffman NP-C aspirin 81 mg PO DAILY atorvastatin 80 mg PO DAILY 90 days clopidogrel 75 mg PO DAILY 90 days ezetimibe 10 mg PO DAILY 90 days metoprolol succinate ER 25 mg PO DAILY 90 days spironolactone 25 mg PO DAILY 90 days valsartan 40 mg PO DAILY HPI HPI 6m s/p Echo: Details: Mathew is a 69-year-old male past medical history of hypertension, hyperlipidemia, coronary artery disease, aortic stenosis status post 4 vessel coronary artery bypass grafting and bioprosthetic AVR with increasing gradient across the aortic valve who presents for follow-up. Today he reports that he is scheduled for these CAT scan of his heart at [facility] later today. This test was ordered to evaluate for subclinical thrombosis of the valve. He was in [place] on vacation last week and came back 3 days ago. He tells me he ate out in restaurants daily and most likely had increased salt intake. He has been compliant with his medications but can tell that his blood pressure is elevated. He has not been checking his readings consistently at home. No chest discomfort at rest or with activity. No concerning shortness of breath, PND, orthopnea or edema. No palpitations, lightheadedness, presyncope, syncope, falls. 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 [facility] Medical History Pulmonary hypertension Carotid stenosis CAD (coronary artery disease) Severe aortic stenosis HTN (hypertension) Surgical History History of colonoscopy (~07/11/24) History of right-sided carotid endarterectomy Status post cardiac catheterization S/P AVR S/P CABG x 4 Family History Mother Brain aneurysm Father Prostate cancer H/O heart bypass surgery Social History Household Members: Family Housing: House Are you a primary career resource specialist to a significant other at home: No Do you presently have visiting nurse or other home services: No Alcohol intake: former Year quit: 2020 Patient Tobacco Use Status: Never used Tobacco Second Hand Smoke Exposure: No Advance Directives Date on File: 01/17/21 service: No Current occupational status: employed Review of Systems Const All systems reviewed & are unremarkable except as noted in HPI and below ENT Denies dizziness Card Denies chest pain, Denies chest pain at rest, Denies chest pain with activity, Denies rapid heart rate, Denies pedal edema, Denies edema, Denies leg edema, Denies lightheadedness, Denies palpitations, Denies dyspnea, Denies dyspnea on exertion and Denies orthopnea Resp Denies cough, Denies dyspnea and Denies dyspnea on exertion GI Denies hematochezia and Denies change in stool character Musc Denies abnormal gait, Denies limited range of motion, Denies muscle cramps, Denies muscle weakness, Denies numbness, Denies radiating pain into limb, Denies stiffness and Denies tingling Neuro Denies abnormal gait, Denies dizziness, Denies numbness and Denies tingling Endo Denies palpitations Physical Exam Vital Signs: Last Vital Signs Pulse 76 12/07/24 14:53 BP 180/82 H 12/07/24 14:53 BMI result Body Mass Index 25.1 Const General: cooperative, healthy appearing, comfortable and no acute distress Orientation/consciousness: patient oriented x3 Neck Neck: Yes normal visual inspection Resp Effort & Inspection: normal respiratory effort Auscultation: clear to auscultation bilaterally, no rales, no rhonchi and no wheezes Cardio Rate: regular rate Rhythm: regular rhythm Heart sounds: S1 normal heart sound present, S2 normal heart sound present, Murmur heart sound present and no rubs Neuro General: patient oriented x3 Extrem General: Yes normal to inspection Psych Appearance: grossly normal Mental Status: mental status grossly normal Speech and movement: Normal speech and movement present Assessment & Plan Assessment & Plan (1) HTN (hypertension): Code(s): I10 - Essential (primary) hypertension Category: Medical Plan: Blood pressure goal less than 130/80. Blood pressure elevated on last visit and again today. He did have increased salt intake this past week. Will have him increase valsartan to 40 mg b.i.d.. Continue spironolactone, metoprolol. Reviewed the reduction of salt in his diet. (2) CAD (coronary artery disease): Code(s): I25.10 - Atherosclerotic heart disease of [place] coronary artery without angina pectoris Category: Medical Plan: He presented to [facility] in 12/2020 with chest discomfort and shortness of breath and found to have abnormal EKG and troponin. Echo with reduced EF, low flow severe . Transferred to [facility] and had cardiac catheterization showing multi-vessel coronary artery disease. He then underwent a four-vessel coronary artery bypass grafting and bioprosthetic aortic valve replacement on 01/29/2021. from last. Continue Plavix, metoprolol, valsartan, atorvastatin. Marked Tree LDL goal less than 70. Labs done on 12/14/2023 showed LDL 49. Labs done 11/02/23 shows creatinine 0.82. Updated labs are due, orders entered. Signs and symptoms of angina reviewed with him. (3) S/P CABG x 4: Comment: 01/29/2021 MANN to mid LAD, SVG to PDA, SVG to OM, left radial artery to diagonal Code(s): Z95.1 - Presence of aortocoronary bypass graft Category: Surgical Plan: As above (4) S/P AVR: Comment: 01/29/21 23mm Mosiac Bioprosthetic AVR Code(s): Z95.2 - Presence of prosthetic heart valve Category: Surgical Plan: Bioprosthetic AVR 12/2020. Follow-up echocardiograms have shown evidence of patient prosthesis mismatch. Last echocardiogram done 09/05/2024 showed EF 50- 55%, severe reduce RV systolic function, stenosis of bio AVR with mean gradient 29 mmHg. He then had transesophageal echocardiogram which showed aortic valve gradient [address] scan is being done at [facility] today for further evaluation. Follow-up appointment and plan to be determined. (5) Carotid stenosis: Code(s): I65.29 - Occlusion and stenosis of unspecified carotid artery Category: Medical Plan: CT angio of the neck done at [facility] on 01/22/2021 shows moderate stenosis of the proximal left ICA, severe stenosis of the right carotid bulb and proximal right ICA. Since then he has undergone a right carotid endarterectomy at [facility] which was uneventful. No bruit on exam today. Will continue on Plavix, atorvastatin. Plan Time spent on chart review, documentation, assessment, interview Medications: Changed From valsartan Dose reduced 40 mg PO DAILY 90 tabs 5RF To valsartan Dose increased 40 mg PO BID 180 tabs 1RF 90 days Coding Level of Care Code Est Pt Level 4 (59569) Complex EM visit Add On G2211 Diagnoses HTN (hypertension) I10 CAD (coronary artery disease) I25.10 S/P CABG x 4 Z95.1 S/P AVR Z95.2 Carotid stenosis I65.29 Time Spent (min) 28
--- OUTSIDE RECORDS SUMMARY | 2024-12-07 15:13 | XMS_ITS ---
Author Organization [facility] Address [address] [place] [address] Care Team Providers Care Grape Crusher Name Role Phone Lea HAY, Jose Primary Care Provider Attila Lewis Jr [phone] REASON FOR VISIT screening Encounters Encounter Location Date Provider Diagnosis [facility] [address], [place] [phone] 06/20/2024 Attila Rivas Jr Plan Of Treatment No Information Progress Notes * ZAHRA PIYUSH ADOB: [birth year] (69 yo M)Acc No.[id number]:06/20/2024 COLON WITH MAC Patient:?PIYUSH SWEENEY Provider:?Attila Rivas MD :1955???Age:69 Y???Sex:Male Dakota e:06/20/2024 Address:[address] , [address] , [facility] Pcp:Jose Tate MD Subjective: * Chief Complaints: [...] MD Date:?1 08/20/2023 Generated for Jakobi caroline/Gino/eTransmitting on:?12/07/2024 03:13 PM EDT
--- OUTSIDE RECORDS SUMMARY | 2024-12-07 15:13 | XMS_ITS ---
Author Organization [facility] Address [address] [place] [address] Care Team Providers Care Mechanical Commissioning Engineer Name Role Phone Lea HAY, Jose Primary Care Provider Attila Lewis Jr [phone] REASON FOR VISIT screening Encounters Encounter Location Date Provider Diagnosis [facility] [place] [address], [place] [phone] 07/11/2024 Attila Rivas Jr Colon cancer screening Z12.11 and Colon polyp K63.5 Assessments Encounter Date Diagnosis (ICD Code) Assessment Notes Treatment Notes Treatment Clinical Notes Section Notes 07/11/2024 Colon cancer screening (ICD-10 - Z12.11) 07/11/2024 Colon polyp (ICD-10 - K63.5) Plan Of Treatment No Information Progress Notes * PIYUSH SWEENEY ADOB: [birth year] (69 yo M)Acc No.[id number]:07/11/2024 COLON WITH MAC Patient:?PIYUSH SWEENEY Provider:?Attila Rivas MD :1955???Age:69 Y???Sex:Male Dakota e:07/11/2024 Address:[address] , [address] , [place], [place] Pcp:Jose Tate MD Subjective: * Chief Complaints: * ???1. Screening. * Medical History:? Objective: * Vitals:? Assessment: * Assessment: 1.?Colon cancer screening - Z12.11 (Primary)???2.?Colon polyp - K63.5??? Plan: * Treatment: * Procedure Codes:?10330 COLON OSCOPY AND BIOPSY, 0529F INTRVL 3+YRS PTS CLNSCP DOCD * * The named appointment provid er may or may not be the originator of this progress note, and it is not deemed complete until electronically signed by the appointment provider. Sign off status: Pending * Provider:?Attila Rivas MD Date:?1 09/11/2023 Generated for Keli velazquez/Gino/Ashleeitting on:?12/07/2024 03:13 PM EDT
--- OUTSIDE RECORDS SUMMARY | 2024-12-07 15:13 | XMS_ITS | Patient Health Record ---
Author Organization [facility] Address [address] [place] [address] Care Team Providers Care Personnel Arbitrator Name Role Phone Lea HAY, Jose Primary Care Provider Attila Lewis Jr Unavailable Allergies No Known Allergies Results Component Value Reference Range Notes Pathology Reviewed date:07/13/2024 09:11:06 AM Interpretation: Performing Lab:[facility], [address] [place] [id number] Notes/Report: Name: Piyush Sweeney Age/Sex: 69/M : 1955 Unit#: [id number] Attend Dr: Attila Rivas MD Re07/11/24 Status : [facility] Location: [facility] Disch: SPEC : [id number] RECD : 07/11/24 STATUS: NAM GARNICA NUM: [id number] ARABELLA: 07/11/[address] [facility] DR: Attila Rivas MD ENTERED: 07/11/24- 15 [...] B. CEDS Copies To: Attila Rivas MD [facility] [address] [place] [address] [address] [place] [address] Jose Tate MD [facility] [address] [place] [address] CONTINUED ON NEXT PAGE Name: QuetaPiyush Huber Age/Sex: 69/M : 1955 Unit#: [id number] Attend Dr: Attila Rivas MD Re07/11/24 Status : [facility] Location: [facility] Disch: SPEC : [id number] RECD : 07/11/24 STATUS: NAM GARNICA NUM: [id number] ARABELLA: 07/11/[address] [facility] [address]: Attila Rivas MD ENTERED: 07/11/24 SP TYPE: Surgical OTHR DR: Jose Tate MD ORDERED: PACO Stain/6, Gross Micro L4/2 Copies To: (Continued) [phone] Signed (si gnature on file) Nrei Olivier MD 07/13/24 0816 END OF REPORT [...] Problem Status W/U Status Risk Notes Problem [id number] Colon cancer screening (Z12.11) Active confirmed Problem [id number] Long-term use of aspirin therapy (Z79.82) Active confirmed Problem [id number] nursing home current use of diuretic (Z79.899) Active confirmed Vital Signs Temperature 98.0 degrees Fahrenheit 04/26/2024 Blood pressure diastolic 00 mm Hg 04/26/2024 Height 5 ft 5 in in 04/26/2024 Blood pressure systolic 000 mm Hg 04/26/2024 Weight 158 lb 2 oz lbs 04/26/2024 BMI 26.31 kg/m2 04/26/2024 Encounters Encounter Location Date Provider Diagnosis [facility] [address] [place] [phone] 07/11/2024 Attila Rivas Jr Colon cancer screening Z12.11 and Colon polyp K63.5 [facility] [address] [place] [phone] 04/26/2024 Attila Rivas Jr Long-term use of aspirin therapy Z79.82 ; Colon cancer screening Z12.11 and nursing home current use of diuretic Z79.899 [facility] [address] [place] [phone] 04/28/2024 Attila Rivas Jr [facility] [address] [place] [phone] 06/05/2024 Attila Rivas Jr [facility] [address] [place] [phone] 07/13/2024 Attila Rivas Jr Assessments Encounter Date [...] spironolactone the day before the procedure. 04/26/2024 nursing home current use of diuretic (ICD-10 - Z79.899) [...] Insured Coverage Start Date Coverage End Date [facility] [id number] [place] [address] [id number] PIYUSH SWEENEY Self - patient is the insured Medical (General) History Medical History History ICD Code Colonoscopy 02/01, normal, ten-year follo wup 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
--- OUTSIDE RECORDS SUMMARY | 2024-12-07 15:13 | XMS_ITS ---
Author Organization [facility] Address [address] [place] [address] Care Team Providers Care Reservations Specialist Name Role Phone Jose Tate MD Primary Care Provider Attila Lewis Jr [phone] REASON FOR VISIT pathology Encounters Encounter Location Date Provider Diagnosis [facility] [address] [place] [address] 07/13/2024 Attila Rivas Jr Plan Of Treatment No Information Progress Notes * PIYUSH SWEENEY ADOB: [birth year] (69 yo M)Acc No.[id number]:07/13/2024 Patient:?PIYUSH SWEENEY :1955???Age:69 Y???Sex:Male Address:[address] , [address] , [place] [address] * true * Date:? Generated for Jakobi caroline/Gino/eTransmitting on:?12/07/2024 03:13 PM EDT
== END 2024-12-07 15:29 | disposition home or self-care (01) ==
LOC: HO.HCS 14:37
PROVIDERS: PCP Internal Medicine; Visit Provider Nurse Practitioner Family
DX: I10 Essential (primary) hypertension (principal); I25.10 Atherosclerotic heart disease of native coronary artery without angina pectoris; Z95.1 Presence of aortocoronary bypass graft; Z95.2 Presence of prosthetic heart valve; I65.29 Occlusion and stenosis of unspecified carotid artery
CPT/HCPCS: 99214

== ENCOUNTER 2025-01-18 13:56 | Outpatient (REF) | payer BC, SELFPAY ==
[2025-01-18 14:41] LABS: MANUAL DIFF FLAG NO
[2025-01-18 15:09] LABS: Basophils Percent Auto 0.5 % (0-2); Eosinophils Absolute Auto 0.1 X10*3/uL (0.0-0.4); Eosinophils Percent Auto 1.9 % (0-4); Hematocrit 42.2 % (42.0-52.0); Hemoglobin 14.8 g/dl (14.0-18.0); Imm Gran Abs Auto 0.02 X10*3/uL (0.00-0.03); Imm Gran Pct Auto 0.3 % (0.0-0.4); Lymphocytes Absolute Auto 1.6 X10*3/uL (1.2-4.9); Lymphocytes Percent Auto 24.4 % (20-40); Mean Corpuscular HGB Conc 35.1 g/dl (31.0-36.0); Mean Corpuscular Hemoglobin 31.8 pg (27.0-33.0); Mean Corpuscular Volume 90.8 fL (80.0-98.0); Mean Platelet Volume 8.3 fL (9.4-12.4); Monocytes Absolute Auto 0.8 X10*3/uL (0.1-1.2); Monocytes Percent Auto 13.1 % (2-11); Neutrophils Absolute Auto 3.9 x10*3/uL (2.0-8.3); Neutrophils Percent Auto 59.8 % (45-73); Platelet Count 246 X10*3/uL (160-400); Red Blood Count 4.65 X10*6/uL (4.60-5.80); Red Cell Distribution Width 12.7 % (11.0-16.0); White Blood Count 6.4 X10*3/uL (4.8-10.8)
[2025-01-18 15:25] LABS: Estimated Average Glucose 120 mg/dL; Hemoglobin A1C 151.6375 umol/L; Hemoglobin A1c % 5.8 % (<6.0)
[2025-01-18 15:32] LABS: Alanine Aminotransferase 37 U/L (0-40); Albumin Level 4.6 g/dL (3.5-5.0); Alkaline Phosphatase 90 U/L (39-117); Anion Gap 12 (12-20); Aspartate Amino Transferase 35 U/L (5-37); Bilirubin Total 0.8 mg/dL (0.0-1.0); Blood Urea Nitrogen 23 mg/dL (9-16); Calcium 9.8 mg/dL (8.4-10.2); Carbon Dioxide 27 mmol/L (22-29); Chloride 106 mmol/L (96-108); Estimated Glomerular Filt Rate > 60; Glucose Random 97 mg/dL (60-115); Potassium 4.3 mmol/L (3.3-5.1); Sodium 141 mmol/L (135-145)
[2025-01-19 13:13] LABS: LDL Cholesterol Direct 47 mg/dL (<100)
== END 2025-01-18 13:57 | disposition home or self-care (01) ==
LOC: HO.LAB 13:56
PROVIDERS: PCP Internal Medicine; Visit Provider Internal Medicine
DX: I10 Essential (primary) hypertension (principal); I25.810 Atherosclerosis of coronary artery bypass graft(s) without angina pectoris; R73.09 Other abnormal glucose; Z79.82 Long term (current) use of aspirin; Z79.02 Long term (current) use of antithrombotics/antiplatelets; Z79.899 Other long term (current) drug therapy; Z95.1 Presence of aortocoronary bypass graft; Z95.2 Presence of prosthetic heart valve; Z12.5 Encounter for screening for malignant neoplasm of prostate; Z13.0 Encounter for screening for diseases of the blood and blood-forming organs and certain disorders involving the immune mechanism; Z13.30 Encounter for screening examination for mental health and behavioral disorders, unspecified; Z13.31 Encounter for screening for depression
CPT/HCPCS: 36415; 80053; 83036; 83721; 84153; 85025; 96127

== ENCOUNTER 2025-01-18 13:56 | Outpatient (AMB) | payer BC, SELFPAY ==
--- NOTE | 2025-01-18 13:29 | A.OFFPC_ITS ---
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 Last seen by pcp Jul CV: Following with cardiology. Had CT angio at [facility]. Has follow up booked in January. On ASA, lipitor, plavix, zetia. toprol, aldactone and valsartan. BP 142/80. Denies chest pain shortness of breath Colonoscopy 06/2024 ROS CONSTITUTIONAL: Denies weight loss, fever and chills. HEENT: Denies changes in vision and hearing. RESPIRATORY: Denies SOB and cough. CV: Denies palpitations and CP GI: Denies abdominal pain, nausea, vomiting and diarrhea. : Denies dysuria and urinary frequency. MSK: Denies new myalgia and joint pain. SKIN: Denies rash and pruritus. NEUROLOGICAL: Denies headache PSYCHIATRIC: Denies recent changes in mood. PHYSICAL EXAM: GENERAL: Alert and oriented x 3. NAD EYES: EOMI. Anicteric. HENT: Moist mucous membranes. No scleral icterus. No cervical lymphadenopathy. LUNGS: Clear to auscultation bilaterally. CARDIOVASCULAR: Regular rate and rhythm. No murmur. No JVD. ABDOMEN: Soft, non-tender +bs EXTREMITIES: No edema. Non-tender. SKIN: No rashes or lesions. Warm. NEUROLOGIC: No focal neurological deficits. CN II-XII grossly intact PSYCHIATRIC: Cooperative. Appropriate mood and affect . [facility] Medical History Pulmonary hypertension Carotid stenosis CAD (coronary artery disease) Severe aortic stenosis HTN (hypertension) Surgical History History of colonoscopy (~07/11/24) History of right-sided carotid endarterectomy Status post cardiac catheterization S/P AVR S/P CABG x 4 Family History Mother Brain aneurysm Father Prostate cancer H/O heart bypass surgery Social History Household Members: Family Housing: House Are you a primary coronary care unit nurse to a significant other at home: No Do you presently have visiting nurse or other home services: No Alcohol intake: former Year quit: 2020 Patient Tobacco Use Status: Never used Tobacco Second Hand Smoke Exposure: No Advance Directives Date on File: 01/17/21 service: No Current occupational status: employed Cognitive needs: No Hearing needs: No Vision needs: Yes (reading glasses) Questionnaire PHQ-9 Over the last 2 weeks, how often have you been bothered by any of the following problems? 1. Little interest or pleasure in doing things: not at all 2. Feeling down, depressed, or hopeless: not at all 3. Trouble falling or staying asleep, or sleeping too much: not at all 4. Feeling tired or having little energy: not at all 5. Poor appetite or overeating: not at all 6. Feeling bad about yourself - or that you are a failure or have let yourself or your family down: not at all 7. Trouble concentrating on things, such as reading the newspaper or watching television: not at all 8. Moving or speaking so slowly that other people could have noticed. Or the opposite - being so fidgety or restless that you have been moving around a lot more than usual: not at all 9. Thoughts that you would be better off or of hurting yourself in some way: not at all Total score: 0 Depression Screening Interpretation: Negative Depression Screening Done: Yes 44697 - PHQ-9 Billing: Yes Source: Developed by Drs. Yohannes L. AnaliliaDevora samuel Kurt Kroenke and colleagues, with an educational michael from [employer]. Thrive Questionnaire Date Thrive assessed: 01/18/25 I am a: Patient Within the past 12 months, did the food you bought not last and you didn't have the money to get more?: Never true Within the past 12 months, did you worry whether your food would run out before you got money to buy more?: Never true Do you have trouble paying for medicines?: No Do you have trouble getting transportation to medical appointments?: No Do you have trouble paying your heating and electricity bill?: No Do you have trouble taking care of your child, family member or friend?: No Do you have trouble with day-to-day activities such as bathing, preparing meals, shopping, managing finances, etc.?: No Are you currently unemployed and looking for a job?: No Are you interested in more education?: No THRIVE Score: 0 AUDIT C Alcohol Use Questionnaire (AUDIT-C) 1. How often do you have a drink containing alcohol?: Never 3. How often do you have six or more drinks on one occasion?: Never Total Score: 0 ELOY-7 AMB Questionnaire ELOY-7 Date ELOY - 7 assessed: 01/18/25 Feeling nervous, anxious, or on edge: 0 = Not at all Not being able to stop or control worryin = Not at all Worrying too much about different things: 0 = Not at all Trouble relaxin = Not at all Being so restless that it is hard to sit still: 0 = Not at all Becoming easily annoyed or irritable: 0 = Not at all Feeling afraid as if something awful might happen: 0 = Not at all Total ELOY-7 score (0-4 normal; 5-9 mild; 10-14 moderate; 15-21 severe): 0 Source: Developed by Drs. Yohannes Billingsley, Renan Garcia and colleagues, with an educational michael from [employer]. Physical exam (Primary Care) Tobacco/Smoking Status: Tobacco use Status Patient Tobacco Use Status Never used Tobacco 01/18/25 13:29 Depression Screening Interpretation: Negative Coding Level of Care Code New Pt Level 4 (46715) Complex EM visit Add On G2211 Diagnoses Primary hypertension I10 Hypertension type: primary hypertension S/P AVR Z95.2 Coronary artery disease involving other coronary artery bypass graft without angina pectoris I25.810 Coronary Disease-Associated Artery/Lesion type: bypass graft, other Associated angina: without angina Additional Codes PHQ-9 - 29326 - PHQ-9 Billing: Yes ([id number]) Assessment & Plan Assessment & Plan (1) HTN (hypertension): Code(s): I10 - Essential (primary) hypertension Category: Medical Qualifiers: Hypertension type: primary hypertension Qualified Code(s): I10 - Essential (primary) hypertension (2) S/P AVR: Comment: 01/29/21 23mm Mosiac Bioprosthetic AVR Code(s): Z95.2 - Presence of prosthetic heart valve Category: Surgical (3) CAD (coronary artery disease): Code(s): I25.10 - Atherosclerotic heart disease of [place] coronary artery without angina pectoris Category: Medical Qualifiers: Coronary Disease-Associated Artery/Lesion type: bypass graft, other Associated angina: without angina Qualified Code(s): I25.810 - Atherosclerosis of coronary artery bypass graft(s) without angina pectoris Plan 69 yo to establish care Past medical, surgical, social reviewed HTN-improved controled. Labs ordered. Follow up [id number] sooner as needed Orders: Orders Comprehensive Met. Panel Today I10 - Essential (primary) hypertension, R73.09 - Other abnormal glucose, Z12.5 - Encounter for screening for malignant neoplasm of prostate, Z13.0 - Encounter for screening for diseases of the blood and blood-forming organs and certain disorders involving the immune mechanism LDL Cholesterol Direct Today I10 - Essential (primary) hypertension Complete Blood Count Auto Diff Today I10 - Essential (primary) hypertension, R73.09 - Other abnormal glucose, Z12.5 - Encounter for screening for malignant neoplasm of prostate, Z13.0 - Encounter for screening for diseases of the blood and blood-forming organs and certain disorders involving the immune mechanism Prostate Specific Antigen Today I10 - Essential (primary) hypertension, R73.09 - Other abnormal glucose, Z12.5 - Encounter for screening for malignant neoplasm of prostate, Z13.0 - Encounter for screening for diseases of the blood and blood-forming organs and certain disorders involving the immune mechanism Hemoglobin A1c Today I10 - Essential (primary) hypertension, R73.09 - Other abnormal glucose, Z12.5 - Encounter for screening for malignant neoplasm of prostate, Z13.0 - Encounter for screening for diseases of the blood and blood- forming organs and certain disorders involving the immune mechanism
[2025-01-18 14:10] VITALS: BP 142/80; PULSE 67; TEMP 36.2; O2SAT 98; BMI 25.3
--- OUTSIDE RECORDS SUMMARY | 2025-01-18 16:49 | XMS_ITS | Patient Health Record ---
Author Organization [facility] Address [address] [place] [address] Care Team Providers Care Finance Clerk Name Role Phone Jose Tate MD Primary Care Provider Attila Lewis Jr Unavailable Allergies No Known Allergies Results Component Value Reference Range Notes Pathology Reviewed date:07/13/2024 09:11:06 AM Interpretation: Performing Lab:[facility], [address] [place] [phone] Notes/Report: Reason For Referral No Information Medications Medication [...] 40 MG TAKE 1 TABLET BY ANTHONY TH EVERY DAY Oral for 30 Active MiraLax [...] Problem Status W/U Status Risk Notes Problem 200952394 Colon cancer screening (Z12.11) Active confirmed Problem 887216619 Long-term use of aspirin therapy (Z79.82) Active confirmed Problem [id number] termination clerk current use of diuretic (Z79.899) Active confirmed Vital Signs Temperature 98.0 degrees Fahrenheit 04/26/2024 Blood pressure diastolic 00 mm Hg 04/26/2024 Height 5 ft 5 in in 04/26/2024 Blood pressure systolic 000 mm Hg 04/26/2024 Weight 158 lb 2 oz lbs 04/26/2024 BMI 26.31 kg/m2 04/26/2024 Encounters Encounter Location Date Provider Diagnosis [facility] Outpatient [address] [place] [id number] 07/11/2024 Attila Rivas Jr Colon cancer screening Z12.11 and Colon polyp K63.5 [facility] [address] [place] [phone] 04/26/2024 Attila Rivas Jr Long-term use of aspirin therapy Z79.82 ; Colon cancer screening Z12.11 and termination clerk current use of diuretic Z79.899 [facility] [address] [place] [phone] 04/28/2024 Attila Rivas Jr [facility] [address] [place] [phone] 06/05/2024 Attila Rivas Jr [facility] [address] [phone] 07/13/2024 Attila Rivas Jr Assessments Encounter Date [...] spironolactone the day before the procedure. 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
== END 2025-01-18 14:25 | disposition home or self-care (01) ==
LOC: HO.HMCHD 13:57
PROVIDERS: PCP Internal Medicine; Visit Provider Internal Medicine
DX: I10 Essential (primary) hypertension (principal); Z95.2 Presence of prosthetic heart valve; I25.810 Atherosclerosis of coronary artery bypass graft(s) without angina pectoris

== ENCOUNTER 2025-02-19 14:03 | Outpatient (AMB) | payer BC, SELFPAY ==
--- NOTE | 2025-02-19 14:09 | MHC.OFFVIS ---
Vital Signs 02/19/25 14:10 Height 5 ft 5 in Weight 152 lb 1.903 oz BMI 25.3 BP 142/80 H Blood Pressure Location Lt brachial Position Sitting Pulse 73 Pulse Source Monitor Intake Visit Reasons: f/up CTA Transcription Specialist: Transcription Specialist Present Allergies No Known Allergies Allergy (Verified 02/19/25 14:12) Medication List - Last Reconciled 02/19/25 by Luiz Ruiz MD aspirin 81 mg PO DAILY atorvastatin 80 mg PO DAILY 90 days clopidogrel 75 mg PO DAILY 90 days ezetimibe 10 mg PO DAILY 90 days metoprolol succinate ER 25 mg PO DAILY 90 days spironolactone 25 mg PO DAILY 90 days valsartan 40 mg PO BID 90 days HPI Comments Details: Taz 69-year-old gentleman here for follow-up. He was seen at [facility] when he presented with congestive heart failure and complained of exertional angina. His echocardiography showed concern for low-flow low gradient severe aortic valve stenosis with severely reduced ejection fraction. He was taken for left and right heart catheterization which showed severe multivessel disease along with low-flow low gradient severe . With these findings he was referred for bypass surgery and aortic valve replacement. He underwent surgery and had a bioprosthetic aortic valve. He has clinically done well since then. His repeat echocardiography has shown ejection fraction of 45-50% with inferior wall motion abnormality which is similar to before. Previously his ejection fraction was severely reduced. He also has a mean gradient 26 across the bioprosthetic aortic valve. There is some bioprosthetic valve dysfunction present. He continues to be clinically asymptomatic and has been active at work without any issues. He had repeat echocardiography in June 2022. His ejection fraction was 55-60% with some wall motion abnormalities. He had mean gradient of 27 mm Hg across the bioprosthetic valve at that time. He had a 23 mm Medtronic mosaic bioprosthetic valve which was used for AVR. He continues to be asymptomatic. He is working and has no functional limitations at this point. 07/12/2023: He returns for follow-up. He has been doing well. No chest discomfort shortness of breath. Taking medications regularly. No active concerns right now. 11/08/2024: Mathew is here for follow-up. He has been following with [facility] over the last 2 years. Apparently had echocardiography performed in August of 2024 which showed low-normal ejection fraction 50 55%, severely reduced RV systolic function, bioprosthetic aortic valve with mean gradient of 29 mm Hg. Previous gradient was 20 mm Hg in July of 2023. Subsequent to that he had a JIM performed by Dr. Hanson which showed mean gradient across aortic valve 24 mm Hg. Normal leaflet mobility with mild thickness of the leaflets noted. He continues to be active and has no exertional symptoms. His blood pressure is elevated today but he is quite nervous appearing today. We discussed in detail about the findings and potential explanations and further workup. 02/19/2025: Mathew is here for follow-up. He has been doing well. No exertional complaints. 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 He had TAVR protocol CT performed which showed 5 mm thickening of the aortic valve leaflets. The radiology report describes this as fibrosis but thrombus can not be ruled out. He continues to be asymptomatic. He is taking aspirin and Plavix. [facility]LY [facility], [facility] Medical History Pulmonary hypertension Carotid stenosis CAD (coronary artery disease) Severe aortic stenosis HTN (hypertension) Surgical History History of colonoscopy (~07/11/24) History of right-sided carotid endarterectomy Status post cardiac catheterization S/P AVR S/P CABG x 4 Family History Mother Brain aneurysm Father Prostate cancer H/O heart bypass surgery Social History Household Members: Family Housing: House Are you a primary transitional care manager to a significant other at home: No Do you presently have visiting nurse or other home services: No Alcohol intake: former Year quit: 2020 Patient Tobacco Use Status: Never used Tobacco Second Hand Smoke Exposure: No Advance Directives Date on File: 01/17/21 service: No Current occupational status: employed Cognitive needs: No Hearing needs: No Vision needs: Yes (reading glasses) Review of Systems ENT Reports dizziness Card Denies chest pain, Denies chest pain at rest, Denies chest pain with activity, Denies rapid heart rate, Denies pedal edema, Denies edema, Denies leg edema, Denies lightheadedness, Denies palpitations, Denies dyspnea, Denies dyspnea on exertion and Denies orthopnea Resp Denies cough, Denies dyspnea and Denies dyspnea on exertion GI Denies hematochezia and Denies change in stool character Musc Denies abnormal gait, Reports limited range of motion, Reports muscle cramps, Denies muscle weakness, Denies numbness, Denies radiating pain into limb, Denies stiffness and Denies tingling Neuro Denies abnormal gait, Reports dizziness, Denies numbness and Denies tingling Endo Denies palpitations Physical Exam Vital Signs: Last Vital Signs Pulse 73 02/19/25 14:10 BP 142/80 H 02/19/25 14:10 BMI result Body Mass Index 25.3 GENERAL APPEARANCE: in no acute distress, pleasant. NECK: Right carotid endarterectomy scar,, no jugular venous distention. SKIN: Well-healed midline sternotomy scar. HEART: Systolic murmur aortic area radiating to the carotids with preserved 2nd heart sound, regular rate and rhythm. LUNGS: clear to auscultation bilaterally. ABDOMEN: soft, nontender. EXTREMITIES: no edema. PERIPHERAL PULSES: equal. NEUROLOGIC: No gross deficits, AAO X 3 Assessment & Plan Assessment & Plan (1) HTN (hypertension): Code(s): I10 - Essential (primary) hypertension Category: Medical Qualifiers: Hypertension type: primary hypertension Qualified Code(s): I10 - Essential (primary) hypertension (2) Prosthetic valve dysfunction: Code(s): T82.09XA - Other mechanical complication of heart valve prosthesis, initial encounter Category: Medical Plan Pleasant 69 year gentleman who is here for follow-up. He has background history of bioprosthetic aortic valve replacement and CABG for severe aortic valve stenosis and cardiomyopathy. His ejection fraction improved after surgery. More recently his echo gradients across aortic valve were high and he underwent JIM to rule out any thrombus in his JIM mean gradient was 24 mm Hg. Subsequently he had a TAVR protocol CT to assess the valve leaflets for HALT. CT scan has shown thickness of the leaflets approximately 5 mm and differential left fibrosis and can not rule out small amount of thrombus. Mathew's echocardiography after aortic valve replacement was abnormal and he had moderate gradient across the aortic valve with a mean gradient of 20 mm Hg soon after surgery. It was felt that this is due to patient prosthesis mismatch. I had a detailed discussion with Mathew and his about the treatment options at this stage. I have explained to him that I am not very convinced that this scenario is related to valve thrombosis or HALT but it can not be ruled out. He does not have any bleeding issues. After long discussion we have decided to try Eliquis along with aspirin for 3 months. Plavix will be discontinued. At 3 months I will repeat the echocardiogram to see the gradient across the aortic valve. If they improved significantly then it is possible that there was some thrombus on the valve leaflets, otherwise this is just patient prosthesis mismatch and some fibrosis with thickening of the leaflets. He will follow-up with us after 3 months after doing an echocardiogram. Thank you for allowing me to participate in the care of your patient. Please feel free to contact me if you have any questions. Orders: Orders CA echo transthoracic complete 3 Months T82.09XA - Other mechanical complication of heart valve prosthesis, initial encounter Medications: New apixaban 5 mg PO BID 120 tabs 2RF T82.09XA - Other mechanical complication of heart valve prosthesis, initial encounter Discontinued clopidogrel Discontinued Reason: Doctor's Order 75 mg PO DAILY 90 days 90 tabs 3RF Coding Level of Care Code Est Pt Level 4 (89598) Diagnoses Primary hypertension I10 Hypertension type: primary hypertension Prosthetic valve dysfunction T82.09XA
[2025-02-19 14:10] VITALS: BP 142/80; PULSE 73; BMI 25.3
--- OUTSIDE RECORDS SUMMARY | 2025-02-19 14:48 | XMS_ITS | Patient Health Record ---
Author Organization [facility] Address [address] [place] [address] Care Team Providers Care Employment Recruiter Name Role Phone Lea (RETIRED) Jose HAY Primary Care Provide r Bridgett Rivas Jr Attila Unavailable [phone] Allergies No Known Allergies Results Component Value Reference Range Notes Pathology Reviewed date:07/13/2024 09:11:06 AM Interpretation: Performing Lab:[facility], [address] [place] [phone] Notes/Report: Reason For Referral No Information Medications [...] Problem Status W/U Status Risk Notes Problem 643223165 Colon cancer screening (Z12.11) Active confirmed Problem 339076653 Long-term use of aspirin therapy (Z79.82) Active confirmed Problem [id number] penitentiary current use of diuretic (Z79.899) Active confirmed Vital Signs Temperature 98.0 degrees Fahrenheit 04/26/2024 Blood pressure diastolic 00 mm Hg 04/26/2024 Height 5 ft 5 in in 04/26/2024 Blood pressure systolic 000 mm Hg 04/26/2024 Weight 158 lb 2 oz lbs 04/26/2024 BMI 26.31 kg/m2 04/26/2024 Encounters Encounter Location Date Provider Diagnosis [facility] Outpatient [address] [place] [phone] 07/11/2024 Attila Rivas Jr Colon cancer screening Z12.11 and Colon polyp K63.5 [facility] [address] [place] [phone] 04/26/2024 Attila Rivas Jr Long-term use of aspirin therapy Z79.82 ; Colon cancer screening Z12.11 and termite control representative current use of diuretic Z79.899 [facility] [address] [place] [phone] 04/28/2024 Attila Rivas Jr [facility] [address] [place] [phone] 06/05/2024 Attila Rivas Jr [facility] [address] [phone] 07/13/2024 Attila Rivas Jr Assessments Encounter Date [...] spironolactone the day before the procedure. 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
--- OUTSIDE RECORDS SUMMARY | 2025-02-19 14:48 | XMS_ITS | Clinical Summary ---
Author Organization [facility] Address [address] [place] [phone] Phone Care Team Providers Care Assistant Account Executive Name Role Phone Unavailable Primary Care Provider Unavailabl e Social History Tobacco Use Types Packs/Day Years Used Date Smoking Tobacco: Never Assessed Education Answer Date Recorded Are you interested in more education? Not on jeny e 11/21/2022 Are you concerned about learning? Not on file 11/21/2022 No 11/21/2022 No 11/21/2022 Digital Access Answer Date Recorded No 12/22/2022 No 12/22/2022 Reliable internet access at home? Not on file 12/22/2022 Device with a working camera? Not on file Sex and Gender Information Value Date Recorded Sex Assigned at Not on file Legal Sex Male 10:34 AM EDT Gender Identity Not on file Sexual Orientation Not on file Plan of Treatment Not on file Medical Devices Not on file Additional Source Comments The information contained in this document represents components of the legal health record. It is not the complete legal health record.[facility]
== END 2025-02-19 14:52 | disposition home or self-care (01) ==
LOC: HO.HCS 14:03
PROVIDERS: PCP Internal Medicine; Visit Provider Internal Medicine Cardiovascular Disease
DX: I10 Essential (primary) hypertension (principal); T82.09XA Other mechanical complication of heart valve prosthesis, initial encounter
CPT/HCPCS: 99214

== ENCOUNTER 2025-03-10 09:12 | Outpatient (REF) | payer BC, SELFPAY ==
--- OUTSIDE RECORDS SUMMARY | 2025-03-10 09:15 | XMS_ITS | Patient Health Record ---
Author Organization [facility] Address [address] [place] [address] Care Team Providers Care Budget Accountant Name Role Phone Lea (RETIRED) Jose HAY Primary Care Provide r Bridgett Rivas Jr Attila Unavailable Allergies No Known Allergies Results Component Value Reference Range Notes Pathology Reviewed date:07/13/2024 09:11:06 AM Interpretation: Performing Lab:[facility], [address] [place] [phone] Notes/Report: Reason For Referral No Information Medications [...] Problem Status W/U Status Risk Notes Problem 049635795 Colon cancer screening (Z12.11) Active confirmed Problem 619858182 Long-term use of aspirin therapy (Z79.82) Active confirmed Problem 48585393650346014 adjunct 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 current use of diuretic (Z79.899) Active confirmed Vital Signs Temperature 98.0 degrees Fahrenheit 04/26/2024 Blood pressure diastolic 00 mm Hg 04/26/2024 Height 5 ft 5 in in 04/26/2024 Blood pressure systolic 000 mm Hg 04/26/2024 Weight 158 lb 2 oz lbs 04/26/2024 BMI 26.31 kg/m2 04/26/2024 Encounters Encounter Location Date Provider Diagnosis [facility] Outpatient [address] [place] [id number] 07/11/2024 Attila Rivas Jr Colon cancer screening Z12.11 and Colon polyp K63.5 [facility] [address] [place] [phone] 04/26/2024 Attila Rivas Jr Long-term use of aspirin therapy Z79.82 ; Colon cancer screening Z12.11 and adjunct 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 current use of diuretic Z79.899 [facility] [address] [place] [phone] 04/28/2024 Attila Rvias Jr [facility] [address] [place] [phone] 06/05/2024 Attila Rivas Jr [facility] [address] [phone] 07/13/2024 Attila Rivas Jr Assessments Encounter Date [...] spironolactone the day before the procedure. 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
--- OUTSIDE RECORDS SUMMARY | 2025-03-10 09:15 | XMS_ITS | Clinical Summary ---
Author Organization [facility] Address [address] [place] [phone] Phone Care Team Providers Care Garnett Room Worker Name Role Phone Unavailable Primary Care Provider [...]
[2025-03-10 09:38] LABS: MANUAL DIFF FLAG NO
[2025-03-10 10:48] LABS: Hematocrit 44.0 % (42.0-52.0); Hemoglobin 15.1 g/dl (14.0-18.0); Imm Gran Abs Auto 0.01 X10*3/uL (0.00-0.03); Imm Gran Pct Auto 0.1 % (0.0-0.4); Lymphocytes Absolute Auto 1.3 X10*3/uL (1.2-4.9); Mean Corpuscular HGB Conc 34.3 g/dl (31.0-36.0); Mean Corpuscular Hemoglobin 31.4 pg (27.0-33.0); Mean Corpuscular Volume 91.5 fL (80.0-98.0); NRBC Abs Auto 0.000 X10*3/uL (0.0-0.012); NRBC Pct Auto 0.0 /100WBC (0.0-0.2); Platelet Count 214 X10*3/uL (160-400); Red Blood Count 4.81 X10*6/uL (4.60-5.80); White Blood Count 8.3 X10*3/uL (4.8-10.8)
[2025-03-10 11:14] LABS: Anion Gap 14 (12-20); Blood Urea Nitrogen 16 mg/dL (9-16); Calcium 9.6 mg/dL (8.4-10.2); Carbon Dioxide 28 mmol/L (22-29); Chloride 104 mmol/L (96-108); Estimated Glomerular Filt Rate > 60; Potassium 4.5 mmol/L (3.3-5.1); Sodium 141 mmol/L (135-145)
== END 2025-03-10 09:13 | disposition home or self-care (01) ==
LOC: HO.LAB 09:12
PROVIDERS: PCP Physician Assistant Medical; Visit Provider Internal Medicine Cardiovascular Disease
DX: I10 Essential (primary) hypertension (principal); T82.09XA Other mechanical complication of heart valve prosthesis, initial encounter
CPT/HCPCS: 36415; 80048; 85025

== ENCOUNTER 2025-03-15 12:59 | Outpatient (AMB) | payer BC, SELFPAY ==
--- NOTE | 2025-03-15 12:58 | AM.OFFWIN_ITS ---
Intake Vital Signs 03/15/25 13:03 Height 5 ft 5 in Weight 156 lb BMI 26.0 BP 156/68 H Blood Pressure Location Rt brachial Position Sitting Respiration 17 Pulse 54 Pulse Source Pulse Oximeter Temp 98.2 F Temp Source Oral Pulse Oximetry (%) 98 Oxygen Delivery Method Room Air Intake Visit Reasons: EP-lower rt back pain Intake Note: lower right back pain x 2 days Patient Tobacco Use Status: Never used Tobacco Fittings Tightener Required: No Accompanied by: Spouse Allergies No Known Allergies Allergy (Verified 03/15/25 12:58) Do you need a note to return to daycare/school/sports/work: No HPI HPI Comments History of Present Illness Details History - The patient is a 69-year-old male pres enting with his with right-sided back pain radiating to the front - The pain began while at work last nigh t and has become constant, with increasing intensity, affecting sleep. - The patient has no history of kidney s tones or back injury, and no visible blood in urine. - Denies fevers or urinary symptoms. - He states this happens with the change of seasons. - denies shooting pain down legs or pain into the buttocks or groin area. Physical Exam General: Cooperative, healthy appearing, comfortable, no acute distress and well developed Orientation: Patient oriented x3 Limitations: No limitations Head: Normal to inspection Ears: Hearing grossly normal bilaterally Face and sinus: Normal facial exam Neck: Normal visual inspection and Yes full ROM Respiratory: Normal respiratory effort and able to speak in complete sentences. Skin: No rashes or lesions noted Neuro: Patient oriented x3 Back/spine: negative CVA bilaterally, no TTP cervical, thoracic or lumbar spine, no TTP throughout back, no spasms noted PFSH Medical History Pulmonary hypertension Carotid stenosis CAD (coronary artery disease) Severe aortic stenosis HTN (hypertension) Surgical History History of colonoscopy (~07/11/24) History of right-sided carotid endarterectomy Status post cardiac catheterization S/P AVR S/P CABG x 4 Family History Mother Brain aneurysm Father Prostate cancer H/O heart bypass surgery Social History Household Members: Family Housing: House Are you a primary daycare teacher to a significant other at home: No Do you presently have visiting nurse or other home services: No Alcohol intake: former Year quit: 2020 Patient Tobacco Use Status: Never used Tobacco Second Hand Smoke Exposure: No Advance Directives Date on File: 01/17/21 service: No Current occupational status: employed Cognitive needs: No Hearing needs: No Vision needs: Yes (reading glasses) Review of Systems Const All systems reviewed & are unremarkable except as noted in HPI and below Physical Exam Vital Signs: Last Vital Signs Temp 98.2 F 03/15/25 13:03 Pulse 54 03/15/25 13:03 Resp 17 03/15/25 13:03 BP 156/68 H 03/15/25 13:03 Pulse Ox 98 03/15/25 13:03 Oxygen Delivery Method Room Air 03/15/25 13:03 BMI result Body Mass Index 26.0 Assessment & Plan Assessment & Plan (1) Acute flank pain: Code(s): R10.9 - Unspecified abdominal pain Plan: Plan Patient was informed and verbally consented to the use of an ambient scribe for clinic note documentation during this visit. - Performed urinalysis to check for infection and blood presence. UA was negative for leuks, nitrites and blood. - discussed the possibility of this being a kidney stone and there is just no blood in the urine yet. Recommended he monitor and if worsening pain develops or if he sees blood in his urine, he should go to the emergency department to have a workup for a kidney stone. - in the meanwhile, we can treat him for a musculoskeletal issue, recommended Voltaren gel as he can not take NSAIDs due to Eliquis use and I did send cyclobenzaprine in case it is a spasm. If these treatments work, then he will know it was musculoskeletal in nature. If they do not work then he should continue to monitor for signs and symptoms of a kidney stone. Orders: Orders AMB Urinalysis Automated Today Z13.9 - Encounter for screening, unspecified Medications: New cyclobenzaprine 5 mg PO Q8H PRN 20 tabs 0RF Muscle Spasm Coding Level of Care Code New Pt Level 3 (24435) Diagnoses Acute flank pain R10.9
[2025-03-15 13:03] VITALS: BP 156/68; PULSE 54; RESP 17; TEMP 36.8; O2SAT 98; BMI 26.0
--- OUTSIDE RECORDS SUMMARY | 2025-03-15 13:13 | XMS_ITS | Patient Health Record ---
Author Organization [facility] Address [address] [place] [address] Care Team Providers Care Wood Box Maker Name Role Phone Lea (RETIRED) Jose HAY Primary Care Provide r Bridgett Rivas Jr Attila Unavailable [phone] Allergies No Known Allergies Results Component Value Reference Range Notes Pathology Reviewed date:07/13/2024 09:11:06 AM Interpretation: Performing Lab:[facility], [address] [place] [phone] Notes/Report: Reason For Referral No Information Medications [...] Problem Status W/U Status Risk Notes Problem 144202717 Colon cancer screening (Z12.11) Active confirmed Problem 978483279 Long-term use of aspirin therapy (Z79.82) Active confirmed Problem [id number] terminal gauger current use of diuretic (Z79.899) Active confirmed Vital Signs Temperature 98.0 degrees Fahrenheit 04/26/2024 Blood pressure diastolic 00 mm Hg 04/26/2024 Height 5 ft 5 in in 04/26/2024 Blood pressure systolic 000 mm Hg 04/26/2024 Weight 158 lb 2 oz lbs 04/26/2024 BMI 26.31 kg/m2 04/26/2024 Encounters Encounter Location Date Provider Diagnosis [facility] [place] [address] [place] [id number] 07/11/2024 Attila Rivas Jr Colon cancer screening Z12.11 and Colon polyp K63.5 [facility] [address] [place] [phone] 04/26/2024 Attila Rivas Jr Long-term use of aspirin therapy Z79.82 ; Colon cancer screening Z12.11 and terminal gauger current use of diuretic Z79.899 [facility] [address] [place] [phone] 04/28/2024 Attila Rivas Jr [facility] [address] [place] [phone] 06/05/2024 Attila Rivas Jr [facility] [address] [phone] 07/13/2024 Attila Rivas Jr Assessments Encounter Date [...] spironolactone the day before the procedure. 04/26/2024 care home current use of diuretic (ICD-10 - [...] Insured Coverage Start Date Coverage End Date 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
--- OUTSIDE RECORDS SUMMARY | 2025-03-15 13:13 | XMS_ITS | Clinical Summary ---
Author Organization [facility] Address [address] [place] [phone] Phone Care Team Providers Care Relay Tester Name Role Phone Unavailable Primary Care Provider [...] It is not the complete legal health record.[facility]
== END 2025-03-15 17:31 | disposition home or self-care (01) ==
PROVIDERS: PCP Physician Assistant Medical; Visit Provider Physician Assistant
DX: R10.9 Unspecified abdominal pain (principal)

== ENCOUNTER → 2025-05-15 13:58 | Outpatient (REF) | payer BC, SELFPAY ==
--- OUTSIDE RECORDS SUMMARY | 2024-05-23 09:10 | XMS_ITS ---
Author Organization [facility] Address [address] [place] [address] Care Team Providers Care Foundry Engineer Name Role Phone Lea (RETIRED) , Jose Primary Care Provide r Attila Cueto Jr REASON FOR VISIT screening Encounters Encounter Location Date Provider Diagnosis [facility] [address] [address] [place], [place] [id number] 05/23/2024 Attila Rivas Jr Plan Of Treatment No Information Progress Notes * PIYUSH SWEENEY ADOB: [birth year] (69 yo M)Acc No.[id number]:05/23/2024 COLON WITH MAC Patient: PIYUSH MENG Provider: Piero Rivas MD :[id number] A ge:68 Y S ex:Male Date:05/23/2024 Address:[address] , [address] [id number] Pcp:Jose Tate (RETIRED )MD Subjective: * Chief Complaints: * 1 . Screening. * Medical History: Objective: * Vitals: Assessment: Plan: * Treatment: * * The named appointment provid er may or may not be the originator of this progress note, and it is not deemed complete until electronically signed by the appointment provider. Sign off status: Pending * Provider: Piero Rivas MD Date: Generated for Jakobi ng/Famarcosg/eTransmitting on: 06:44 PM EDT
--- OUTSIDE RECORDS SUMMARY | 2024-06-20 04:20 | XMS_ITS ---
Author Organization [facility] Address [address] [place] [address] Care Team Providers Care Director International Name Role Phone Lea (RETIRED) , Jose Primary Care Provide r Attila Cueto Jr [phone] REASON FOR VISIT screening Encounters Encounter Location Date Provider Diagnosis [facility] [place] [address], [place] [id number] 06/20/2024 Attila Rivas Jr Plan Of Treatment No Information Progress Notes * PIYUSH SWEENEY ADOB: [birth year] (69 yo M)Acc No.[id number]:06/20/2024 COLON WITH MAC Patient: PIYUSH MENG Provider: Piero Rivas MD :1955 A ge:69 Y S ex:Male Date:06/20/2024 Address:[address] , [address] [place], [place] Pcp:Jose Tate (RETIRED )MD Subjective: * Chief Complaints: * 1 . Screening. * Medical History: Objective: * Vitals: Assessment: Plan: * Treatment: * * The named appointment provid er may or may not be the originator of this progress note, and it is not deemed complete until electronically signed by the appointment provider. Sign off status: Pending * Provider: Piero Rivas MD Date: 08/20/2023 Generated for Jakobi ng/Famarcosg/eTransmitting on: 06:45 PM EDT
--- OUTSIDE RECORDS SUMMARY | 2024-07-11 05:10 | XMS_ITS ---
Author Organization [facility] Address [address] [place] [address] Care Team Providers Care Insurance Agency Manager Name Role Phone Lea (RETIRED) , Jose Primary Care Provide r Attila Cueto Jr REASON FOR VISIT screening Encounters Encounter Location Date Provider Diagnosis [facility] [place] [address] [place], [place] [phone] 07/11/2024 Attila Rivas Jr Colon cancer screening Z12.11 and Colon polyp K63.5 Assessments Encounter Date Diagnosis (ICD Code) Assessment Notes Treatment Notes Treatment Clinical Notes Section Notes 07/11/2024 Colon cancer screening (ICD-10 - Z12.11) 07/11/2024 Colon polyp (ICD-10 - K63.5) Plan Of Treatment No Information Progress Notes * BHUPINDERLESLYECYNDI PIYUSH ADOB: [birth year] (69 yo M)Acc No.[id number]:07/11/2024 COLON WITH MAC Patient: PIYUSH MENG Provider: Piero Rivas MD :1955 A ge:69 Y S ex:Male Date:07/11/2024 Address:[address] , [address] , [place], [place] Pcp:Jose Tate (RETIRED )MD Subjective: * Chief Complaints: * 1 . Screening. * Medical History: Objective: * Vitals: Assessment: * Assessment: 1. C olon cancer screening - Z12.11 (Primary) 2 . C olon polyp - K63.5 Plan: * Treatment: * Procedure Codes: 4 5380 COLONOSCOPY AND BIOPSY, 0529F INTRVL 3+YRS PTS CLNSCP DOCD * * The named appointment provid er may or may not be the originator of this progress note, and it is not deemed complete until electronically signed by the appointment provider. Sign off status: Pending * Provider: Piero Rivas MD Date: 1 09/11/2023 Generated for Keli velazquez/Gino/Rodrigo on: 1 06:44 PM EDT
--- NOTE | 2025-05-15 14:03 | CA_ITS ---
Transthoracic Echocardiogram Patient (Last, First, Middle): Mathew Birch A Gender: Male Date of : 1955 Age: 69 Procedure Date: 05/15/2025 Procedure Type: Transthoracic Echocardiogram Location: OP Height: 165.1 cm Weight: 67.13 kg BSA: 1.74 m2 Heart Rate: bpm BP: 126 / 56 mmHg Quality Systems Technician: TO/RC Referring MD: Luiz Ruiz MD Vehicle Modification Technician: Cortez Hanson MD Symptoms: T82.09XA - Other mechanical complication of heart valve prosthesis, init... Study Quality: Adequate ECG Rhythm: Sinus Conclusions: - 1. Mildly reduced LV ejection fraction 45-50% with elevated filling pressures 2. Stenosis of bioprosthetic aortic valve mean gradient of 21 mm Hg which is improved compared to before 3. Severely reduced RV systolic function by TAPSE 4. No gross pericardial effusion Findings Left Ventricle Normal left ventricular cavity size. There is mildly increased left ventricular wall thickness. The left ventricular systolic function is mildly decreased. The visually estimated ejection fraction is between 45-50%. Spectral Doppler is indicative of an impaired relaxation filling pattern. Elevated filling pressures.Peak GLS is -14.1%, moderately reduced. Right Ventricle Normal right ventricular cavity size. There is severely decreased right ventricular systolic function. Atria The left atrium is normal in size. There is no evidence of interatrial shunt. The right atrium is likely dilated. Aortic Valve A bioprosthetic aortic valve is present. The prosthetic aortic valve appears to be functioning abnormally. Echo findings are consistent with stenosis of the aortic valve prosthesis. The mean gradient is 21 mmHg. The aortic valve area is 1.14 cm2. Mitral Valve There is mild anterior and posterior mitral leaflet thickening. There is mild mitral annular calcification. There is mild mitral valve regurgitation. There is no mitral valve stenosis. Pulmonic Valve The pulmonic valve is likely normal. Tricuspid Valve Tricuspid regurgitation envelope is inadequate for calculation of right ventricular systolic pressure. Normal right atrial pressure. Great Vessels All visible segments of the aorta are normal in size. The pulmonary artery was not well visualized. There is no dilatation of the ascending aorta measuring 3.40 cm. Venous The inferior vena cava is normal in size and collapses greater than 50% with inspiration. Pericardium/Pleural There is no evidence of pericardial effusion. Prior Study Comparison Changes noted compared to prior study dated: 10/20/2024. mean gradient across bioprosthetic aortic valve mildly reduced at 21 mm Hg. Measurements 2D Linear Measurements IVSd: 1.17 0.6-0.9/0.6-1.0 cm LVIDd: 4.61 3.9-5.3/4.2-5.9 cm LVIDd Index: 2.65 2.4-3.2/2.2-3.1 cm/m2 LVIDs: 2.90 2.0-3.6 cm LVPWd: 1.17 0.7-1.1 cm LA Diam: 3.10 2.7-3.8/3.0-4.0 cm LAIDs Index: 1.78 1.5-2.3 cm/m2 LV Mass: 247.24 67-162/88-224 g LV Mass Index: 142.09 43-95/49-115 g/m2 LVOT Diam: 2.20 3.0+(-)1.3 cm 2D Systolic Function EF 4C: 56.80 >55% EF 2C: 46.60 >55% EF BiP: 49.40 >55% Mitral Valve MV Pk E: 1.01 MV PK A: 1.06 MV Decel Time: 232.00 E/A: 1.00 E'Lateral: 9.90 E'Medial: 4.90 E/E' Med: 20.60 E/E' Lat: 10.20 PHT: 68.00 MVA PHT: 3.24 Decel Hartley: 4.33 Aortic Valve AoV Pk Ramin: 3.12 AoV Mn Ramin: 2.17 AoV VTI: 0.70 AoV Pk Grad: 39.00 Aov Mn Grad: 21.00 JENNIFER Cont.VTI: 1.14 LVOT LVOT Pk Ramin: 0.98 LVOT Mn Ramin: 0.64 LVOT VTI: 0.21 LVOT Pk Grad: 4.00 LVOT Mn Grad: 2.00 LVOT Diam: 2.20 LVOT Area: 3.80 Diastolic Function MV Pk E: 1.01 MV Pk A: 1.06 E/A: 1.00 E'Medial: 4.90 E/E' Med: 20.60 E' Laterial: 9.90 E/E' Lat: 10.20 Right Ventricle TAPSE (mm): 7.14 TVS' Ramin: 4.57 Tricuspid Valve RA Press: 3.00 Great Vessels Aorta Sinus of Valsalva: 3.20 2.0-3.5 cm Ao Asc: 3.40 2.1-3.4 cm Pulmonary Veins Pulm Vein S/D 1.10 Pulmonary Valve PV Pk Ramin: 0.89 Peak PV Grad: 3.00 Updated in Other Vendor System with Status of Final Cortez Hanson MD electronically signed on 05/15/2025 6:31:35 PM with status of Final
--- OUTSIDE RECORDS SUMMARY | 2025-05-15 18:44 | XMS_ITS | Patient Health Record ---
Author Organization [facility] Address [address] [place] [address] Care Team Providers Care Certified Forklift Operator Name Role Phone Lea (RETIRED) Jose HAY Primary Care Provide r Attila Cueto Jr Unavailable [phone] Allergies No Known Allergies Results Component Value Reference Range Notes Pathology Reviewed date:07/13/2024 09:11:06 AM Interpretation: Performing Lab:[facility], [address] [place] [phone] Notes/Report: Reason For Referral No Information Medications Medication SIG (Take, Route, Frequency, Duration) Notes Start Date End Date Status Ezetimibe 10 MG Oral; Duration: 30 Active Metoprolol Succinate ER 25 MG Oral; Duration: 30 Active Atorvastatin Calcium 80 MG Oral; Duration: 30 Active Spironolactone 25 MG Oral; Duration: 30 Active Clopidogrel Bisulfate 75 MG Oral; Duration: 30 Active Aspirin 81 81 MG 1 tablet Orally Once a day; Duration: 30 day(s) Active Valsartan 40 MG TAKE 1 TABLET BY EVERY DAY Oral; Duration: 30 Active MiraLax (colon prep) 17 GM/SCOOP mixed with Gatorade or Crystal Light Orally begin at 5:00 p.m. the day before the procedure; Duration: 1 day 04/26/2024 Active Immunizations Vaccine Route [...] Problem Status W/U Status Risk Notes Problem Colon cancer screening (783449314) Colon cancer screening (Z12.11) Active confirmed Problem Long-term current use of antiplatelet drug (051561625708853) Long-term use of aspirin therapy (Z79.82) Active confirmed Problem Long-term current use of drug therapy (304487783) FDC current use of diuretic (Z79.899) Active confirmed Encounters Encounter Location Date Provider Diagnosis [facility] [place] [address] [place] [id number] 07/11/2024 Attila Rivas Jr Colon cancer screening Z12.11 and Colon polyp K63.5 [facility] [address] [place] [phone] 06/05/2024 Attila Rivas Jr [facility] [address] [place] [phone] 07/13/2024 Attila Rivas Jr Assessments Encounter Date Diagnosis (ICD Code) Assessment Notes Treatment Notes Treatment Clinical Notes Section Notes 07/11/2024 Colon cancer screening (ICD-10 - Z12.11) 07/11/2024 Colon polyp (ICD-10 - K63.5) Plan Of Treatment Future Test Test Name Order Date COLONOSCOPY 04/26/2024 Insurance Providers Payer Name Payer Address Payer Phone Subscriber Number Group Number Insured Name Patient Relationship to Insured Coverage Start Date Coverage End Date [facility] [address] [place] [address] [id number] PIYUSH SWEENEY Self - patient is the insured Medical (General) History Medical History History ICD Code Colonoscopy 02/01, normal, ten-year follo wup 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
--- OUTSIDE RECORDS SUMMARY | 2025-05-15 18:44 | XMS_ITS | Clinical Summary ---
Author Organization [facility] Address [address] [place] [phone] Phone Care Team Providers Care Table Operator Name Role Phone Unavailable Primary Care Provider [...] It is not the complete legal health record.[facility]
== END ==
LOC: HO.CARD 13:58
PROVIDERS: PCP Physician Assistant Medical; Visit Provider Internal Medicine Cardiovascular Disease
DX: T82.09XD Other mechanical complication of heart valve prosthesis, subsequent encounter (principal)
CPT/HCPCS: 93306

== ENCOUNTER → 2025-05-15 14:03 | Outpatient (BNV) | payer BC, SELFPAY | PROVIDERS: PCP Physician Assistant Medical; Visit Provider Internal Medicine Cardiovascular Disease | DX: T82.09XA Other mechanical complication of heart valve prosthesis, initial encounter (principal); I35.0 Nonrheumatic aortic (valve) stenosis | CPT/HCPCS: 93306; 93356 ==

== ENCOUNTER 2025-06-04 12:53 | Outpatient (AMB) | payer BC, SELFPAY ==
--- NOTE | 2025-06-04 13:15 | A.OFFVIS_ITS ---
Vital Signs 06/04/25 13:16 Height 5 ft 5 in Weight 152 lb 1.903 oz BMI 25.3 BP 160/82 H Blood Pressure Location Lt brachial Position Sitting Pulse 66 Pulse Source Monitor Intake Visit Reasons: 3 mth s/p echo Intake Note: 3 mth f/up/echo Staffing Analyst Required: No Accompanied by: Spouse Allergies No Known Allergies Allergy (Verified 03/15/25 12:58) Medication List - Last Reconciled 06/04/25 by Luiz Ruiz MD apixaban 5 mg PO BID aspirin 81 mg PO DAILY atorvastatin 80 mg PO DAILY 90 days cyclobenzaprine 5 mg PO Q8H PRN ezetimibe 10 mg PO DAILY 90 days metoprolol succinate ER 25 mg PO DAILY 90 days spironolactone 25 mg PO DAILY 90 days valsartan 40 mg PO ONCE HPI Comments Details: Taz 69-year-old gentleman here for follow-up. He was seen at [facility] when he presented with congestive heart failure and complained of exertional angina. His echocardiography showed concern for low-flow low gradient severe aortic valve stenosis with severely reduced ejection fraction. He was taken for left and right heart catheterization which showed severe multivessel disease along with low-flow low gradient severe . With these findings he was referred for bypass surgery and aortic valve replacement. He underwent surgery and had a bioprosthetic aortic valve. He has clinically done well since then. His repeat echocardiography has shown ejection fraction of 45-50% with inferior wall motion abnormality which is similar to before. Previously his ejection fraction was severely reduced. He also has a mean gradient 26 across the bioprosthetic aortic valve. There is some bioprosthetic valve dysfunction present. He continues to be clinically asymptomatic and has been active at work without any issues. He had repeat echocardiography in June 2022. His ejection fraction was 55- 60% with some wall motion abnormalities. He had mean gradient of 27 mm Hg across the bioprosthetic valve at that time. He had a 23 mm Medtronic mosaic bioprosthetic valve which was used for AVR. He continues to be asymptomatic. He is working and has no functional limitations at this point. 07/12/2023: He returns for follow-up. He has been doing well. No chest discomfort shortness of breath. Taking medications regularly. No active concerns right now. 11/08/2024: Mathew is here for follow-up. He has been following with [facility] over the last 2 years. Apparently had echocardiography performed in August of 2024 which showed low-normal ejection fraction 50 55%, severely reduced RV systolic function, bioprosthetic aortic valve with mean gradient of 29 mm Hg. Previous gradient was 20 mm Hg in July of 2023. Subsequent to that he had a JIM performed by Dr. Hanson which showed mean gradient across aortic valve 24 mm Hg. Normal leaflet mobility with mild thickness of the leaflets noted. He continues to be active and has no exertional symptoms. His blood pressure is elevated today but he is quite nervous appearing today. We discussed in detail about the findings and potential explanations and further workup. 02/19/2025: Mathew is here for follow-up. He has been doing well. No exertional complaints. 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 He had TAVR protocol CT performed which showed 5 mm thickening of the aortic valve leaflets. The radiology report describes this as fibrosis but thrombus can not be ruled out. He continues to be asymptomatic. He is taking aspirin and Plavix. 06/04/2025: He is here for follow-up. 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 His repeat echocardiography has shown mean gradient across the prosthetic aortic valve 21 mm Hg. In 2020 when he had a post of ECHO his mean gradient at that time was 21 mm Hg. It was felt that he had some degree of patient prosthesis mismatch to start with. He has been angelia ing Eliquis at this point without any issues. His blood pressure has been quite elevated. [facility] Medical History Pulmonary hypertension Carotid stenosis CAD (coronary artery disease) Severe aortic stenosis HTN (hypertension) Surgical History History of colonoscopy (~07/11/24) History of right-sided carotid endarterectomy Status post cardiac catheterization S/P AVR S/P CABG x 4 Family History Mother Brain aneurysm Father Prostate cancer H/O heart bypass surgery Social History Household Members: Family Housing: House Are you a primary director long term care to a significant other at home: No Do you presently have visiting nurse or other home services: No Alcohol intake: former Year quit: 2020 Patient Tobacco Use Status: Never used Tobacco Second Hand Smoke Exposure: No Advance Directives Date on File: 01/17/21 service: No Current occupational status: employed Cognitive needs: No Hearing needs: No Vision needs: Yes (reading glasses) Review of Systems Const Denies chills, Denies fatigue, Denies fever(s), Denies frequent falls, Denies weakness, Denies weight gain and Denies weight loss ENT Denies dizziness Card Denies chest pain, Denies leg edema, Denies lightheadedness, Denies palpitations, Denies dyspnea and Denies dyspnea on exertion Resp Denies cough, Denies dyspnea and Denies dyspnea on exertion GI Denies hematochezia Musc Denies abnormal gait, Denies muscle weakness, Denies numbness, Denies radiating pain into limb and Denies tingling Neuro Denies abnormal gait, Denies dizziness, Denies frequent falls, Denies numbness, Denies tingling and Denies weakness Endo Denies fatigue and Denies palpitations Physical Exam Vital Signs: Last Vital Signs Pulse 66 06/04/25 13:16 BP 160/82 H 06/04/25 13:16 BMI result Body Mass Index 25.3 GENERAL APPEARANCE: in no acute distress, pleasant. NECK: Right carotid endarterectomy scar,, no jugular venous distention. SKIN: Well-healed midline sternotomy scar. HEART: Systolic murmur aortic area radiating to the carotids with preserved 2nd heart sound, regular rate and rhythm. LUNGS: clear to auscultation bilaterally. ABDOMEN: soft, nontender. EXTREMITIES: no edema. PERIPHERAL PULSES: equal. NEUROLOGIC: No gross deficits, AAO X 3 Office Procedures EKG Details: Sinus rhythm 66 beats per minute, right axis deviation, septal infarct, can not rule out lateral infarct, QTC 415 milliseconds. 99240-Grsszyobfvipzabsy, Complete Assessment & Plan Assessment & Plan (1) HTN (hypertension): Code(s): I10 - Essential (primary) hypertension Category: Medical Qualifiers: Hypertension type: primary hypertension Qualified Code(s): I10 - Essential (primary) hypertension (2) Prosthetic valve dysfunction: Code(s): T82.09XA - Other mechanical complication of heart valve prosthesis, initial encounter Category: Medical Plan Pleasant 69 year gentleman who is here for follow-up. He has background history of bioprosthetic aortic valve replacement and CABG for severe aortic valve stenosis and cardiomyopathy. His ejection fraction improved after surgery. Echo in 2020 when he was postop showed mean gradient of 21 mm Hg. This was felt to be related to patient prosthesis mismatch. He has repeat echocardiography showing very similar gradient at this point. I do not think this has been a significant change in his valve gradients in between. Has been taking Eliquis since January of 2025. I have advised him to stop the Eliquis. Adding Plavix 75 mg daily. I have advised him to stop the aspirin at this stage. I think he mostly has patient prosthesis mismatch. His blood pressure is elevated and is going to increase the valsartan to 80 mg daily. He will keep a log of his blood pressure and will call us in a week. Thank you for allowing me to participate in the care of your patient. Please feel free to contact me if you have any questions. Coding Level of Care Code Est Pt Level 4 (19669) Diagnoses Primary hypertension I10 Hypertension type: primary hypertension Prosthetic valve dysfunction T82.09XA CPT Codes EKG - CPT: 79244-Fifzprbonmpmktbda, Complete ([id number])
[2025-06-04 13:16] VITALS: BP 160/82; PULSE 66; BMI 25.3
--- OUTSIDE RECORDS SUMMARY | 2025-06-04 14:56 | XMS_ITS | Clinical Summary ---
Author Organization [facility] Address [address] [place] [phone] Phone Care Team Providers Care Offal Trimmer Name Role Phone Unavailable Primary Care Provider [...] It is not the complete legal health record.[facility]
== END 2025-06-04 13:42 | disposition home or self-care (01) ==
PROVIDERS: PCP Physician Assistant Medical; Visit Provider Internal Medicine Cardiovascular Disease
DX: I10 Essential (primary) hypertension (principal); T82.09XA Other mechanical complication of heart valve prosthesis, initial encounter
CPT/HCPCS: 93010; 99214

== ENCOUNTER → 2025-06-04 12:53 | Outpatient (BNVA) | payer BC, SELFPAY | PROVIDERS: PCP Internal Medicine; Visit Provider Internal Medicine Cardiovascular Disease | DX: I10 Essential (primary) hypertension (principal) | CPT/HCPCS: 93005 ==